=== PATIENT | female | born 1940 | race Caucasian/White ===

== ENCOUNTER 2018-08-29 19:06 | Inpatient (IN) | payer OTHER ==
[~2018-08-29] VITALS: Ht 160 cm; Wt 57.8 kg
[~2018-08-29 19:06] MED LIST: ETOMIDATE 20 MG INJ ONE; SUCCINYLCHOLINE CHLORIDE 100 MG/5 ML SYG IV ONE
[2018-08-29] MEDS ORDERED: SODIUM CHLORIDE 0.9% 1L BAG IV* STA (19:23)
[2018-08-29] MEDS ORDERED: PANT40TA4 PO (19:24)
[2018-08-29] MEDS ORDERED: CHOL100062 PO (19:24)
[2018-08-29] MEDS ORDERED: FURO20TA3 PO (19:27)
[2018-08-29] MEDS ORDERED: ASPI-817 PO (19:28)
[2018-08-29] MEDS ORDERED: OMEP1CAP25 PO (19:29)
[2018-08-29] MEDS ORDERED: CALC-74 PO (19:30)
[2018-08-29] MEDS ORDERED: VANCOMYCIN 1 GM (PMX) 250 ML IVPB ONE (19:30)
[2018-08-29] MEDS ORDERED: LEVOFLOXACIN 750MG/D5W (PMX) 150 ML IVPB ONE (19:30)
[2018-08-29] MEDS ORDERED: OMEG-135 PO (19:30)
[2018-08-29] MEDS ORDERED: TIOT18CA INHALATION (19:31)
[2018-08-29] MEDS ORDERED: LEVO175T6 PO (19:31)
[2018-08-29] MEDS ORDERED: AMLO5TAB4 PO (19:31)
--- NOTE | 2018-08-29 19:40 | ERD ---
ER Documentation Chief Complaint Chief Complaint Respiratory distress (STONEY HYDE DO) HPI This is an 78-year-old female who [facility]. The patient was doing well 2 days ago the report however the past 2 days she had a gradual decline in mobility and appetite and today she progressed to where she was virtually unresponsive with increased work of breathing. Patient was brought in with very tachypneic with unresponsiveness. Cannot obtain other history (STONEY HYDE DO) I received signout on this patient from Dr. Hyde. In summary the patient pr esented acutely hypoxic, and apneic, requiring emergent intubation. I reviewed the patient's past history and physical, she has a history of COPD, most of the history was obtained from her son who states that she has been feeling unwell for about the last 3 weeks, he has noted that she is a little bit weaker. She currently resides at an assisted living facility, she is still smoking. She had a prior admission to [facility] earlier this month. At that time she apparently left AMA. (UGO HAAS MD) ROS All systems reviewed and are negative except as per history of present illness. (STONEY HYDE DO) Medications Home Meds Reported Medications Cholecalciferol (Vitamin D3) (Vitamin D-3) 2,000 Unit Tablet, 2000 UNIT PO DAILY, TAB 08/29/18 Tiotropium [place]* (Spiriva*) 18 Mcg Cap.w.dev, 1 CAP INHALATION DAILY, #30 CAP 08/29/18 Levothyroxine Sodium* (Levothyroxine Sodium*) 175 Mcg Tablet, 175 MCG PO BEFORE BREAKFAST, #30 TAB 08/29/18 Amlodipine Besylate* (Norvasc*) 5 Mg Tablet, 5 MG PO DAILY, TAB 08/29/18 [place]-3 Fatty Acids/Fish Oil (Fish Oil 1,000 mg Capsule) 1 Each Capsule, 1 EACH PO DAILY, CAP 08/29/18 Calcium Carbonate-Vit D3-Minerals (Calcium 600 + D + Minerals) 1 Each Tablet, 1 TAB PO DAILY, TAB 08/29/18 Omeprazole/Sodium Bicarbonate (OMEPRAZOLE-BICARB 20-1,100 CAP) 1 Each Capsule, 1 CAP PO DAILY, #30 CAP 08/29/18 Aspirin* (Aspirin* EC) 81 Mg Tablet., 81 MG PO DAILY, TAB 08/29/18 Furosemide* (Furosemide*) 20 Mg Tablet, 20 MG PO DAILY, #60 TAB 1 TAB- NEEDED 08/29/18 Pantoprazole* (Pantoprazole*) 40 Mg Tablet.dr, 40 MG PO AC BREAKFAST, TAB 08/29/18 Discontinued Reported Medications Cholecalciferol* (Vitamin D3*) 1,000 Unit Tablet, 1000 UNIT PO DAILY, TAB 08/29/18 Allergies Allergies: Coded Allergies: Penicillins (Unverified Allergy, Unknown, 08/29/18) PMhx/Soc Hx Respiratory Disorders: Yes (ASTHMA) Hx Psychiatric Problems: Yes (ANXIETY) Hx Miscellaneous Medical Probl: No (PT UNABLE TO DISCLOSED ANY OTHER INFORMATION) Hx Alcohol Use: No Hx Substance Use: No Hx Tobacco Use: Yes (STONEY HYDE DO) FmHx Unable to obtain due to mental status (STONEY HYDE DO) Family History: No diabetes (UGO HAAS MD) Physical Exam Vitals Vital Signs Date Temp Pulse Resp B/P (MAP) Pulse Ox O2 O2 Flow FiO2 Time Delivery Rate 08/29/18 Bag Valve 10 19:25 Mask 08/29/18 Bag Valve 10.0 19:25 Mask 08/29/18 62 16 100 100 19:10 08/29/18 96.4 70 30 139/72 80 19:06 (94) (UGO HAAS MD) Physical Exam Const: Well-developed, well-nourished Head: Atraumatic, normocephalic Eyes: Bilateral yellow conjunctival discharge PERRLA, EOMI, normal sclera, no nystagmus ENT: Normal External Ears, Nose and Mouth, moist mucus membranes. Neck: Full range of motion. No meningismus, no lymphadenopathy. Resp: Tachypnea with impending respiratory failure Cardio: Tachycardia, no murmurs, S1 S2 present] Abd: [Soft, non tender x 4, non distended. Skin: No petechiae or rashes, no ecchymosis , no maculopapular rash Back: Const: Well-developed, well-nourished Head: Atraumatic, normocephalic Eyes: Normal Conjunctiva, PERRLA, EOMI, normal sclera, no nystagmus ENT: Normal External Ears, Nose and Mouth, moist mucus membranes. Neck: Full range of motion. No meningismus, no lymphadenopathy. Resp: Clear to auscultation bilaterally, no wheezing, rhonchi, rales Cardio: Regular rate and rhythm, no murmurs, S1 S2 present Abd: Soft, non tender x 4, non distended. Normal bowel sounds, no guarding or rebound, no pulsitile abdominal masses or bruits Skin: No petechiae or rashes, no ecchymosis , no maculopapular rash Back: No midline or flank tenderness Ext: No cyanosis, or edema, FROM x 4, normal inspection, neurovascularly intact x 4 Neur: GCS of 3 Psych: Cannot assess (STONEY HYDE DO) Physical Exam General: Patient is intubated, on mechanical ventilator, opens eyes to sound HEENT: Atraumatic, no scleral icterus Neck: Trachea midline, no step-off, no meningeal signs Cardiovascular: Regular rate and rhythm, no murmurs rubs or gallop Respiratory: Bilateral expiratory wheezing noted Abdomen: Soft nontender, no guarding Extremities, trace pitting edema bilaterally Neuro: Patient is sedated, opens eyes spontaneously (UGO HAAS MD) Result Diagram: 08/29/18194108/29/181941 Results 24 hrs Laboratory Tests Test 08/29/18 19:35 08/29/18 19:42 08/29/18 20:14 08/29/18 20:30 Hepatitis A Pending Antibody Total Hepatitis B Pending Surface Antigen Hepatitis B Pending Core Total Antibody Hepatitis C Pending Antibody White Blood 10.0 10^3/ul Count Red Blood Count 4.00 10^6/ul Hemoglobin 13.1 g/dl Hematocrit 44.7 % Mean 111.8 fl Corpuscular Volume Mean 32.8 pg Corpuscular Hemoglobin Mean 29.3 g/dl Corpuscular Hemoglobin Conc ent Red Cell 15.1 % Distribution Width Platelet Count 324 10^3/UL Mean Platelet 10.0 fl Volume Immature 13.400 % Granulocytes % Neutrophils % % Segmented 75 % Neutrophils % (Manual) Band 5 % Neutrophils % (Manual) Lymphocytes % % Lymphocytes % 3 % (Manual) Reactive 2 % Lymphocytes % (Manual) Monocytes % % Monocytes % 2 % (Manual) Eosinophils % % Basophils % % Metamyelocytes 5 % % (manual) Myelocytes % 8 % (Manual) Nucleated Red 0.7 /100WBC Blood Cells % Immature 1.340 10^3/ul Granulocytes # Neutrophils # 10^3/ul Neutrophils # 7.6 10^3/ul (Manual) Band 0.5 10^3/ul Neutrophils # Lymphocytes 0.3 10^3/ul (Manual) Lymphocytes # 10^3/ul Reactive 0.2 10^3/ul Lymphocytes # Monocytes # 10^3/ul Monocytes # 0.2 10^3/ul (Manual) Eosinophils # 10^3/ul Basophils # 10^3/ul Metamyelocytes 0.5 10^3/ul # Myelocytes # 0.8 10^3/ul Nucleated Red 10^3/ul Blood Cells # Polychromasia 2+ Poikilocytosis 1+ Anisocytosis 1+ Macrocytosis 1+ Spherocytes 1+ Ovalocytes 1+ Prothrombin 15.6 Sec Time Prothrombin 1.2 Time Ratio INR 1.22 International Normalized Rati o Activated 29.8 Sec Partial Thrombo plast Time Sodium Level 144 mmol/L Potassium Level 6.6 mmol/L Chloride Level 89 mmol/L Carbon Dioxide 45 mmol/L Level Anion Gap 10 Blood Urea 43 mg/dl Nitrogen Creatinine 1.20 mg/dl Est Glomerular mL/min Filtrat Rate mL/min Glucose Level 125 mg/dl Calcium Level 10.5 mg/dl Total Bilirubin 0.3 mg/dl Direct 0.00 mg/dl Bilirubin Indirect 0.3 mg/dl Bilirubin Aspartate Amino 1480 IU/L Transf (AST/SGO T) Alanine 823 IU/L Aminotransferas e (ALT/SGPT) Alkaline 166 IU/L Phosphatase Troponin I 0.061 ng/ml B-Type 85629 PG/ML Natriuretic Peptide Total Protein 7.5 g/dl Albumin 3.7 g/dl Globulin 3.80 g/dl Albumin/Globuli 0.97 n Ratio POC Venous 2.7 mmol/L Lactate Blood Gas Blood arterial Specimen Source Arterial Blood 08/29/2018 10: Date Drawn 10:10 PM Arterial Blood 7.425 pH (Temp corrected ) Arterial Blood 58.6 mmhg pCO2 (Temp correct) Arterial Blood 49.5 mmHG pO2 (Temp corrected ) Arterial Blood 37.6 mmol/L HCO3 Arterial Blood 11.2 mmol/L Base Excess Arterial Blood 84.8 mmHG Oxygen Saturati on Yordan Test ACCEPTAB Arterial Blood Left Radial Gas Puncture Site Arterial 0.4 % Blood Carboxyhe moglobin Arterial Blood 0.2 % Methemoglobin Blood Gas A-a 604.9 mmHg O2 Differential Oxyhemoglobin 84.3 % Percent Blood Gas 37.0 C Temperature Blood Gas 20.0 Respiration Rate Blood Gas 24 Actual Respiration Rat e Blood Gas VENT - AC Modality FiO2 100.0 % Blood Gas Tidal 500.0 mL Volume Blood Gas Low 5.0 cmH2O PEEP Setting Blood Gas 47.0 Inspiratory Pressure Blood Gas Xander HAAS MD Critical Value Read Back Blood Gas Notified Whom Blood Gas 08/29/2018 10: Notified Time 20:52 PM Test 08/29/18 21:30 Urine Color KEYUR Urine Clarity TURBID Urine pH 5.0 Urine Specific 1.015 [place] Urine Ketones TRACE mg/dL Urine Nitrite NEGATIVE mg/dL Urine Bilirubin NEGATIVE mg/dL Urine 2+ mg/dL Urobilinogen Urine Leukocyte NEGATIVE Shabana/ul Esterase Urine 9 /HPF Microscopic RBC Urine 7 /HPF Microscopic WBC Urine Squamous FEW /HPF Epithelial Cell s Urine Hyaline FEW /HPF Casts Urine Mucus FEW /HPF Urine 3+ mg/dL Hemoglobin Urine Glucose 1+ mg/dL Urine Total 2+ mg/dl Protein Current Medications Medications Dose Sig/Pacheco Start Time Status Last (Trade) Ordered Route PRN Stop Time Admin Dose Reason Admin Sodium 1,620 ml BOLUS OVER 2 08/29/18 DC 08/29/18 Chloride HOURS STAT 19:23 19:49 (NS) IV* 08/29/18 19:26 Vancomycin 250 ml @ ONCE ONCE 08/29/18 DC 08/29/18 HCl 125 mls/hr IVPB 19:30 19:50 08/29/18 21:29 150 ml @ ONCE ONCE 08/29/18 DC 08/29/18 Levofloxacin/ 100 mls/hr IVPB 19:30 19:50 Dextrose 08/29/18 20:59 Propofol 100 ml @ ONCE STAT 08/29/18 08/29/18 1.62 mls/hr IV 20:06 09/01/18 20:22 09:49 Ipratropium 0.5 mg ONCE STAT 08/29/18 DC 08/29/18 [place] INH 21:12 22:05 (Atrovent 08/29/18 0.02% 21:16 (Neb)) Albuterol 15 mg ONCE STAT 08/29/18 DC 12/29/18 (Proventil INH 21:12 22:05 0.5% (Neb)) 08/29/18 21:16 125 mg ONCE STAT 08/29/18 DC 08/29/18 Methylprednis IV 21:12 22:06 olone Sodium 08/29/18 Succinate 21:16 (Solu-Medrol) Sodium 1,000 ml @ Q2H STAT 08/29/18 Bicarbonate 500 mls/hr IV 21:13 100 08/29/18 meq/Dextrose 23:12 Insulin 10 unit ONCE STAT 08/29/18 DC Human IVP 21:13 Regular 08/29/18 (Humulin R) 21:18 Dextrose ONCE PRN 08/29/18 08/29/18 (D50w IV DECREASED 21:30 22:07 Syringe) GLUCOSE 08/30/18 21:29 250 ml @ ONCE STAT 08/29/18 08/29/18 Norepinephrin 7.5 mls/hr IV 21:14 22:07 e 08/31/18 06:33 Oseltamivir 75 mg ONCE ONCE 08/29/18 DC 08/29/18 Phosphate PO 21:30 22:07 (Tamiflu) 08/29/18 21:31 Sodium 1,000 ml @ [id number] IV 08/29/18 Chloride 80 mls/hr 21:57 Albuterol 4 puff Q2H RESP 08/29/18 (Ventolin THERAPY PRN 22:00 Hfa) INH SHORTNESS OF BREATH Ipratropium 4 puff Q2H RESP 08/29/18 [place] THERAPY PRN 22:00 (Atrovent INH Hfa) SHORTNESS OF BREATH 650 mg Q6H PRN 08/29/18 Acetaminophen NGT PAIN 22:00 (Tylenol LEVEL 1-3 OR Liquid) FEVER 40 mg DAILY@06 08/30/18 Pantoprazole IV 06:00 (Protonix Iv) (UGO HAAS MD) Procedures/MDM Endotracheal Intubation by me: Pre assessment performed. See preceding note for details. Pre-oxygenation performed with 100% oxygen RSI: Performed w/o complication or hypoxic events. Medications as ordered. Blade: MAC 4 storz ET Tube: 7cm Depth: 22cm at the lip Intubation confirmed by colorimetric CO2, equal breath sounds, quiet over the stomach. Critical Care Time: 40 minutes Treatments/Evaluations: Close monitoring and treatment of unstable vital signs, cardiorespiratory, and neurologic status, while maintaining tight balance of fluid, respiratory, and cardiac interventions. This time includes discussing the case with the patient and the patient's family. This time does not include all procedures stated elsewhere in this record. This time also includes reviewing old records, labs and radiological studies. This time includes examining and re-examining the patient. Additionally, this time also includes arranging care with admitting and consulting physicians. (STONEY HYDE DO) 78-year-old female presents for evaluation of respiratory distress, hypoxia. My overall impression the patient is in acute shock, she has elevated liver enzymes, she was hypotensive, and noted a possible pleural effusion on the right side, consider aspiration, she was treated with broad-spectrum antibiotics, I added Tamiflu, also place central line for pressor support. Discussed plan of care with family, discussed with [facility], as patient is currently unstable, will be admitted to the ICU at [facility]. Patient will be admitted to Dr. Condon Sepsis Documentation: Patient's infectious symptoms have not stabilized and the patient is at risk of rapid decompensation. The patient will be admitted for careful hydration, antibiotic therapy, and infectious source control. SEVERE SEPSIS CRITERIA: Infectious source: Pulmonary End organ damage indicated by: Lactate greater than 2 SEPSIS MANAGEMENT Time of recognition of sepsis: [Upon arrival]. Time of recognition of severe sepsis: [No severe sepsis at this time]. Time of recognition of septic shock: [No septic shock at this time]. 3 HOUR BUNDLE Blood cultures x 2 before broad-spectrum antibiotics: [Yes] 30 ml/kg NS bolus [Completed] Initial lactate 2.7 Repeat lactate pending SEPTIC SHOCK ASSESSMENT: Persistent hypotension VOLUME REASSESSMENT FOR SEPTIC SHOCK: Reevaluation Time: 10:20 PM Temp 96], BP 101/80], HR 101], RR[22], Pox [100%] Heart [Regular rate & rhythm] Lungs [No crackles] Skin [Warm & dry] Cap Refill [Less than 2 seconds] Peripheral pulses [Radially present] PERSISTENT HYPOTENSION TREATMENT: Comfort care [No] Central line [Not Required] Vasopressor started Levophed] I considered further perfusion assessment with CVP measurement, SCVO2, bedside ultrasound volume assessment, passive leg raise, trial of further fluid bolus. And proceeded with [30 ml/kg fluid bolus of NSS, broad spectrum antibiotics, and admission.] CRITICAL CARE Critical care time [35] minutes Emergent fluid management while maintaining close respiratory support. Provision of immediate and broad-spectrum antibiotic therapy. Simultaneous asse ssment for possible sources in order to direct targeted therapy. Consideration for invasive and chemical support to prevent cardiopulmonary collapse. Critical care time is independent of procedures performed. Central Line Placement by me: Patient consented, sterilely draped, full prep, gown, glove, mask, time out performed. Anesthesia: 1% lidocaine locally Location: Right IJ Device: Multiple lumen Technique: Seldinger technique. Secured with suture. Results: Venous return from all ports with easy saline flush. No complications. Guide wire retrieved and disposed of. (UGO HAAS MD) Departure Diagnosis: Primary Impression: Respiratory distress Condition: Critical STONEY HYDE DO Aug 29, 2018 19:40 UGO HAAS MD Aug 29, 2018 22:22
[2018-08-29] MEDS ORDERED: CHOL200056 PO (19:42)
[2018-08-29] MEDS ORDERED: PROPOFOL 100 ML IV STA (20:06)
[2018-08-29] MEDS ORDERED: IPRATROPIUM (NEB) 0.5 MG/2.5 ML AMP INH STA (21:12)
[2018-08-29] MEDS ORDERED: METHYLPREDNISOLONE 125 MG INJ IV STA (21:12)
[2018-08-29] MEDS ORDERED: ALBUTEROL 0.5% (NEB) 2.5 MG/0.5 ML AMP INH STA (21:12)
[2018-08-29] MEDS ORDERED: SODIUM BICARBONATE (IV ADD) 100 MEQ in DEXTROSE 5% 900 ML IV STA (21:13)
[2018-08-29] MEDS ORDERED: INSULIN REGULAR, HUMAN 100 UNIT/1 ML 3ML VIAL IVP STA (21:13)
[2018-08-29] MEDS ORDERED: NORepinephrine 8MG/250 ML (PMX 250 ML IV STA (21:14)
[2018-08-29] MEDS ORDERED: DEXTROSE 50% 50 ML SYRINGE IV PRN ×3 (21:30→23:30)
[2018-08-29] MEDS ORDERED: OSELTAMIVIR 75 MG CAP PO ONE (21:30)
[2018-08-29] MEDS ORDERED: IPRATROPIUM (HFA) 12.9 GM INHALER INH PRN (22:00)
[2018-08-29] MEDS ORDERED: ACETAMINOPHEN 650MG/20.3ML CUP NGT PRN (22:00)
[2018-08-29] MEDS ORDERED: ALBUTEROL HFA 8 GM INHALER INH PRN (22:00)
--- NOTE | 2018-08-29 22:29 | HP ---
Date/Time of Note Date/Time of Note DATE: 08/29/18 TIME: :29 Assessment/Plan VTE Prophylaxis SCD applied (from Nsg): Yes Pharmacological prophylaxis: LMWH Lines/Catheters IV Catheter Type (from Nrsg): Central Line Central line still needed: Yes (pressor support) Urinary Cath still in place: Yes Reason Cath still needed: other (indicate) (critical illness) Assessment/Plan Hospital Course This is a 78-year-old female being admitted to the ICU floor for: #1 ventilatory dependent hypercapnic hypoxic respiratory failure: Multifactorial secondary to underlying COPD, pneumonia versus other. At the current time patient is intubated we will obtain serial ABGs and adjust vent setting as per pulmonary. Consult pulmonology. She did receive IV Solu-Medrol in the ED, as needed nebulizers. #2 septic shock: Secondary likely to underlying pneumonia. Patient lives in assisted living facility. Antibiotics of vancomycin and aztreonam given marshall ent's penicillin allergy. Sputum culture via ET tube. Panculture. Trend lactic acid levels. Continue Pressor support with MAP > 65 #3 hyperkalemia: Likely secondary to underlying renal failure. She did receive albuterol and insulin in the ED. We will also give her a dose of calcium gluconate for cardioprotective measures. Will check CMP every 4 hours to monitor potassium and renal function. #4 acute versus acute on chronic kidney failure I do not have a previous baseline creatinine. Creatinine is 1.20. At the current time will provide IV fluid hydration with normal saline. Patient does appear to be volume down. Monitor renal function. Avoid nephrotoxic agents. Renally dose antibiotics. #5 lactic acidosis: Secondary to underlying hypoperfusion, septic shock. We will trend lactic acid levels, IV antibiotics, IV fluid hydration. Vent management. We will continue to monitor #6 contraction alkalosis: Secondary to volume depletion, IV fluid hydration, monitor renal function and bicarb levels. #7 transaminitis: Shock liver, versus passive congestion, versus hepatitis anu richie other. Given patient's history of COPD patient may have a component of right heart failure resulting in passive congestion, however at the current time patient appears to be volume down. Trend liver function tests, right upper quadrant ultrasound. Hepatitis panel. #8 elevated BNP: Suspect history of heart failure given previous history of needing Lasix and bilateral lower extremity edema, however at the current time patient appears to be volume down. Trop negative. Will need to locate the EKG. Will check an echocardiogram. #9 macrocytosis: We will check B12, folate #10 COPD: Pulmonology consultation. There may be a component of cor pulmonale resulting in right heart failure, will check an echocardiogram. prn nebs #11 hypothyroidism: We will check TSH, will convert p.o. dose to IV dose of levothyroxine daily. #12 hypertension: We will need to hold current blood pressure medications given patient's septic shock and requirement for pressors. #13 DVT GI prophylaxis: Lovenox, Protonix Further treatment strategy will be implemented as per the clinical course CODE STATUS: Full code Greater than 55 minutes of critical care time was spent on the care and management of this patient. Patient is a [facility] patient once patient is stabilized she can be transferred to [facility]. Son: karson [phone] Result Diagram: 08/29/18194108/29/181941 Results 24hrs Laboratory Tests Test 08/29/18 19:35 08/29/18 19:42 08/29/18 20:14 08/29/18 20:30 Hepatitis A Pending Antibody Total Hepatitis B Pending Surface Antigen Hepatitis B Pending Core Total Antibody Hepatitis C Pending Antibody White Blood 10.0 Count Red Blood Count 4.00 L Hemoglobin 13.1 Hematocrit 44.7 Mean 111.8 H Corpuscular Volume Mean 32.8 Corpuscular Hemoglobin Mean 29.3 L Corpuscular Hemoglobin Conc ent Red Cell 15.1 H Distribution Width Platelet Count 324 Mean Platelet 10.0 Volume Immature 13.400 H Granulocytes % Neutrophils % Segmented 75 Neutrophils % (Manual) Band 5 H Neutrophils % (Manual) Lymphocytes % Lymphocytes % 3 L (Manual) Reactive 2 H Lymphocytes % (Manual) Monocytes % Monocytes % 2 (Manual) Eosinophils % Basophils % Metamyelocytes 5 H % (manual) Myelocytes % 8 H (Manual) Nucleated Red 0.7 H Blood Cells % Immature 1.340 H Granulocytes # Neutrophils # Neutrophils # 7.6 H (Manual) Band 0.5 Neutrophils # Lymphocytes 0.3 L (Manual) Lymphocytes # Reactive 0.2 H Lymphocytes # Monocytes # Monocytes # 0.2 L (Manual) Eosinophils # Basophils # Metamyelocytes 0.5 H # Myelocytes # 0.8 H Nucleated Red Blood Cells # Polychromasia 2+ Poikilocytosis 1+ Anisocytosis 1+ Macrocytosis 1+ Spherocytes 1+ Ovalocytes 1+ Prothrombin 15.6 H Time Prothrombin 1.2 Time Ratio INR 1.22 International Normalized Rati o Activated 29.8 Partial Thrombo plast Time Sodium Level 144 Potassium Level 6.6 *H Chloride Level 89 L Carbon Dioxide 45 *H Level Anion Gap 10 Blood Urea 43 H Nitrogen Creatinine 1.20 H Est Glomerular Filtrat Rate mL/min Glucose Level 125 Calcium Level 10.5 H Total Bilirubin 0.3 Direct 0.00 Bilirubin Indirect 0.3 Bilirubin Aspartate Amino 1480 H Transf (AST/SGO T) Alanine 823 H Aminotransferas e (ALT/SGPT) Alkaline 166 H Phosphatase Troponin I 0.061 B-Type 36354 H Natriuretic Peptide Total Protein 7.5 Albumin 3.7 Globulin 3.80 H Albumin/Globuli 0.97 n Ratio POC Venous 2.7 *H Lactate Blood Gas Blood arterial Specimen Source Arterial Blood 08/29/2018 10:1 Date Drawn 0:10 PM Arterial Blood 7.425 pH (Temp corrected ) Arterial Blood 58.6 H pCO2 (Temp correct) Arterial Blood 49.5 *L pO2 (Temp corrected ) Arterial Blood 37.6 H HCO3 Arterial Blood 11.2 H Base Excess Arterial Blood 84.8 L Oxygen Saturati on Yordan Test ACCEPTAB Arterial Blood Left Radial Gas Puncture Site Arterial 0.4 Blood Carboxyhe moglobin Arterial Blood 0.2 Methemoglobin Blood Gas A-a 604.9 H O2 Differential Oxyhemoglobin 84.3 L Percent Blood Gas 37.0 Temperature Blood Gas 20.0 Respiration Rate Blood Gas 24 Actual Respiration Rat e Blood Gas VENT - AC Modality FiO2 100.0 Blood Gas Tidal 500.0 Volume Blood Gas Low 5.0 PEEP Setting Blood Gas 47.0 Inspiratory Pressure Blood Gas Xander HAAS MD Critical Value Read Back Blood Gas Notified Whom Blood Gas 08/29/2018 10:2 Notified Time 0:52 PM Test 08/29/18 21:30 08/29/18 22:12 Urine Color KEYUR Urine Clarity TURBID A Urine pH 5.0 Urine Specific 1.015 [place] Urine Ketones TRACE A Urine Nitrite NEGATIVE Urine Bilirubin NEGATIVE Urine 2+ H Urobilinogen Urine Leukocyte NEGATIVE Esterase Urine 9 H Microscopic RBC Urine 7 H Microscopic WBC Urine Squamous FEW Epithelial Cell s Urine Hyaline FEW A Casts Urine Mucus FEW A Urine 3+ H Hemoglobin Urine Glucose 1+ H Urine Total 2+ H Protein Bedside Glucose 97 HPI/ROS Admit Date/Time Admit Date/Time Hx of Present Illness Chief complaint: Brought in by EMS for being unresponsive and increased work of breathing This is a 78-year-old female with a past medical history of COPD hypothyroidism and hypertension who was brought in by EMS from skilled nursing for being unresponsive and increased work of breathing. The history was provided from the ED physician as well as from the son Karson who was at the bedside as the patient was unable to provide a history given her critical condition. According to the son, the patient was seen on [place] by him and she did appear weak at that time. Then he was notified today by the skilled nursing/assisted living facility that she had not eaten. Patient was alert he noticed having a gradual decline in mobility and appetite and was found to be virtually unresponsive and with increased work of breathing. When she arrived to the emergency department patient was unresponsive and was very tachypneic. She still remains a smoker. She is a [facility] patient. The son does state that the last time she was admitted to the hospital she required Lasix as her legs were both swollen. Upon my examination of the patient at the bedside the patient was intubated and was noted to be agitated while on the vent. As per the son the patient does state that the mother did not want to be on life support for prolonged period of time nor in a vegetative state, however at the current time they would like to do everything possible for her. Allergies: Penicillin, son also reports there may be other allergies as well, we will try to obtain records from [facility]. Medications: See KERMIT rodgers phone number: [phone] ROS Subjective hx not possible: pt non-verbal, pt critical status (Intubated) PMH/Family/Social Past Medical History COPD, hypothyroidism, hypertension, osteoporosis, episodes of hypoglycemia Medications Current Medications Propofol 100 ml @ 1.62 mls/hr ONCE STAT IV Last administered on 08/29/18at 20:22; Admin Dose 1.62 MLS/HR; Start 08/29/18 at 20:06; Stop 09/01/18 at 09:49 Sodium Bicarbonate 100 meq/Dextrose 1,000 ml @ 500 mls/hr Q2H STAT IV ; Start 08/29/18 at 21:13; Stop 08/29/18 at 23:12 Dextrose (D50w Syringe) ONCE PRN IV DECREASED GLUCOSE Last administered on 08/29/18at 22:07; Admin Dose 50 ML; Start 08/29/18 at 21:30; Stop 08/30/18 at 21:29 Norepinephrine 250 ml @ 7.5 mls/hr ONCE STAT IV Last administered on 08/29/18at 22:07; Admin Dose 7.5 MLS/HR; Start 08/29/18 at 21:14; Stop 08/31/18 at 06:33 Sodium Chloride 1,000 ml @ 80 mls/hr [id number] IV ; Start 08/29/18 at 21:57 Albuterol (Ventolin Hfa) 4 puff Q2H RESP THERAPY PRN INH SHORTNESS OF BREATH; Start 08/29/18 at 22:00 Ipratropium [place] (Atrovent Hfa) 4 puff Q2H RESP THERAPY PRN INH SHORTNESS OF BREATH; Start 08/29/18 at 22:00 Acetaminophen (Tylenol Liquid) 650 mg Q6H PRN NGT PAIN LEVEL 1-3 OR FEVER; Start 08/29/18 at 22:00 Pantoprazole (Protonix Iv) 40 mg DAILY@06 IV ; Start 08/30/18 at 06:00 Coded Allergies: Macrolide Antibiotics (Verified Allergy, Unknown, 09/06/18) Penicillins (Verified Allergy, Unknown, 09/06/18) aspirin (Verified Allergy, Unknown, 09/06/18) erythromycin base (Verified Allergy, Unknown, 09/06/18) hydrocodone (Verified Allergy, Unknown, 09/06/18) lisinopril (Verified Allergy, Unknown, 09/06/18) meloxicam (Verified Allergy, Unknown, 09/06/18) Past Surgical History Dental surgery, possible appendectomy Social History Alcohol Use: sober (Former heavy drinker) Smoking Status: Current every day smoker Drug Use: none Exam/Review of Systems Vital Signs Vitals Vital Signs Date Temp Pulse Resp B/P (MAP) Pulse Ox O2 O2 Flow FiO2 Time Delivery Rate 08/29/18 Bag Valve 10 19:25 Mask 08/29/18 62 16 100 100 19:10 08/29/18 96.4 139/72 19:06 (94) Exam Exam General: Currently intubated, she does appear to be agitated while on the vent while off sedation HEENT: Atraumatic, normocephalic. The pupils are equal, round and reactive. Extraocular motor are intact, ET tube in place connected to vent, mucous membranes dry Neck: Supple Lungs: Coarse breath sounds bilaterally Heart: Normal S1-S2, Regular rhythm and rate. No murmur, S3, or S4 Abdomen: Soft , nontender, nondistended , bowel sounds are present. No guarding no rebound tenderness , No masses or organomegaly. No costovertebral temporal angle mass Extremities: Normal to inspection, no edema no cyanosis Neurologic: Intubated, agitated on the vent while off sedation, further neurological examination unable to perform given patient's current clinical condition Skin: Skin tenting Additional Comments PROCEDURE: CT Brain without contrast. CLINICAL INDICATION: Altered mental status, TECHNIQUE: CT of the brain was performed from the skull base through the vertex without IV contrast. Multiplanar reformatted images were made. Images were reviewed on a PACS workstation. The CTDIvol is 38.84 mGy and the DLP is 778.94 mGycm. DICOM images are available. One or more of the following dose reduction techniques were utilized: 1.) Automated exposure control 2.) Adjustment of the mA +/- kV according to patient's size 3.) Use of iterative reconstruction technique. COMPARISON: None FINDINGS: Brain: The examination is moderately degraded by motion artifact. No extra- axial fluid collection is seen. The ventricles and sulci are normal in size and configuration. No evidence of acute territorial infarct. There is suggestion of periventricular white matter hypodensities. Soft tissues: Unremarkable. Skull and skull base: No fractures or destructive lesions. Mastoids and middle ear cavities are normal. Face/orbits: Visualized portions are unremarkable. Paranasal sinuses: Visualized portions are unremarkable. IMPRESSION: 1. Examination moderately degraded by motion artifact. No evidence of acute intracranial abnormality. 2. Suggestion of periventricular white matter hypodensities which are nonspecific but most commonly reflect chronic small vessel ischemic changes. 3. If there is persistent concern for intracranial pathology, a repeat examination is suggested given the degree of motion on the study. RPTAT: HEUY Physician carmen Date Time Electronically viewed and signed by felecia preston, Physician on 08/29/2018 21:29 ry/ CC: STONEY MATHIS DO [id number] PROCEDURE: XR Chest. CLINICAL INDICATION: Sepsis. TECHNIQUE: Single frontal chest x-ray. COMPARISON: None. FINDINGS: Endotracheal tube tip is 2.4 cm above the priscilla. Heart is enlarged. There are atherosclerotic calcifications of the aortic knob.. There is no congestive heart failure.. There is probable layering right pleural effusion with associated right basilar atelectasis versus infiltrate.. There is no pleural effusion. There is no pneumothorax. Bones are osteopenic.. IMPRESSION: Endotracheal tube tip above priscilla. Cardiomegaly. No CHF. Probable right pleural effusion with basilar atelectasis versus infiltrate. RPTAT: HMVK .Cristian Poole MD, Date Time Electronically viewed and signed by .Cristian Poole MD, on 08/29/2018 20:27 .K/ CC: STONEY MATHIS DO [id number] AMADOU HARDY Aug 29, 2018 22:29
[2018-08-29] MEDS: SOD CHLORIDE 0.9% 1,000 ML IV SCH (22:33)
[2018-08-29] MEDS ORDERED: GLUCOSE GEL 15 GRAM TUBE PO PRN ×2 (23:30)
[2018-08-29] MEDS ORDERED: GLUCOSE GEL 15 GRAM TUBE BUCCAL PRN (23:30)
[2018-08-29] MEDS ORDERED: GLUCAGON 1 MG INJ IM PRN (23:30)
[2018-08-29] MEDS ORDERED: LORAZEPAM 2 MG INJ IV ONE (23:30)
[2018-08-30] VITALS (62 sets, daily range): BP systolic 105–149; BP diastolic 62–115; PULSE 60–90; RESP 0–23; Ht 160 cm; Wt 57.8 kg
[2018-08-30] MEDS ORDERED: CALCIUM GLUCONATE 10% 1 GM in DEXTROSE 5% 100 ML IVPB ONE ×2
[2018-08-30] MEDS: INSULIN ASPART [NOVOLOG] 3 ML PEN SC SCH ×6 (01:48→21:00)
[2018-08-30] MEDS ORDERED: ACCU-CHEK XX SCH (02:00)
[2018-08-30] MEDS: FENTAnyl (DRIP) 1000 mcg/100mL 100 ML IV SCH (02:16)
[2018-08-30] MEDS: PROPOFOL 100 ML IV SCH ×3 (04:10→18:59)
[2018-08-30] MEDS ORDERED: SOD CHLORIDE 0.9% 1,000 ML IV ONE (04:30)
[2018-08-30] MEDS ORDERED: VANCOMYCIN IV PER PHARMACY XX SCH (04:30)
[2018-08-30] MEDS: AZTREONAM 2 GM in SOD CHLORIDE 0.9% 100 ML IVPB SCH ×2 (05:24→17:00)
[2018-08-30] MEDS: PANTOPRAZOLE 40 MG INJ IV SCH (05:31)
[2018-08-30] MEDS: ENOXAPARIN 40 MG/0.4 ML SYG SC SCH (05:32)
[2018-08-30] MEDS ORDERED: METHYLPREDNISOLONE 40 MG INJ IV SCH (06:00)
[2018-08-30] MEDS: LEVOTHYROXINE 100 MCG VIAL IV SCH (06:34)
--- NOTE | 2018-08-30 06:39 | NUR ---
EOSS: Pt admitted from ER, orally intubated to vent, AC mode , CHX5=352% . ABG due at 0730 am. sedated on Diprivan drip at 50 mcg, Fentanyl drip started at 20 mcg. no SOB noted, RASS=-2 , OGT clamped , NPO. Received a total of 2L of NS in ICU for decreased u/o . All concerns addressed to Dr Flip Condon hospitalist. No signs of pain noted, turned and repositioned. all skin issues documented. sol[place] to gravity bag w/ minimal u/o , bark benton turbid , addressed to Dr. Condon. due meds adm., noted rectal prolapse, passed 1 small smear.vital signs within range , afebrile, pending CT scan of the brain routine.
[2018-08-30] MEDS ORDERED: ALBUMIN HUMAN 25% 100 ML IV ONE (07:30)
--- NOTE | 2018-08-30 09:24 | PN ---
Date/Time of Note Date/Time of Note DATE: 08/30/18 TIME: 09:21 Assessment/Plan VTE Prophylaxis SCD applied (from Nsg): Yes Pharmacological prophylaxis: heparin Lines/Catheters IV Catheter Type (from Nrsg): Central Line Central line still needed: Yes Urinary Cath still in place: Yes Reason Cath still needed: urinary retention Assessment/Plan Problems: (1) Chronic respiratory failure with hypoxia and hypercapnia Status: Chronic Comment: She is on ventilator assistance in management with pulmonary assisting. Ultimately if we are able to successfully get her off of the machine she will still have the underlying issues to be addressed aggressively (2) COPD (chronic obstructive pulmonary disease) Status: Chronic Comment: Treatment as available on the ventilator Qualifiers: COPD type: unspecified COPD Qualified Codes: J44.9 - Chronic obstructive pulmonary disease, unspecified (3) Septic shock Status: Acute Comment: Improving but requiring support. At this time still critically ill (4) Essential hypertension Status: Chronic Comment: Noted. Not recurring hypertensive yet (5) Acquired hypothyroidism Status: Chronic Comment: Maintain replacement therapy (6) Prerenal azotemia Status: Acute Comment: Improving as the patient's clinical status improves. (7) Osteoporosis Status: Chronic Comment: Noted. Qualifiers: Osteoporosis type: age-related Presence of current pathological fracture: without current pathological fracture Qualified Codes: M81.0 - Age-related osteoporosis without current pathological fracture (8) Lactic acidosis Status: Acute Comment: Still present (9) Abnormal liver function tests Status: Acute Comment: Undoubtedly this represents shock liver the liver chemistries are still elevated but the hepatitis serologies are negative. Continue supportive care Result Diagram: 08/29/18 19408/30/18 0607 Results 24hrs Laboratory Tests Test 08/29/18 19:35 08/29/18 19:42 08/29/18 20:14 08/29/18 20:30 Hepatitis A NEGATIVE Antibody Total Hepatitis B NEGATIVE Surface Antigen Hepatitis B NEGATIVE Surface Antibody Hepatitis B NEGATIVE Core Total Antibody Hepatitis C NEGATIVE Antibody White Blood 10.0 Count Red Blood Count 4.00 L Hemoglobin 13.1 Hematocrit 44.7 Mean 111.8 H Corpuscular Volume Mean 32.8 Corpuscular Hemoglobin Mean 29.3 L Corpuscular Hemoglobin Conc ent Red Cell 15.1 H Distribution Width Platelet Count 324 Mean Platelet 10.0 Volume Immature 13.400 H Granulocytes % Neutrophils % Segmented 75 Neutrophils % (Manual) Band 5 H Neutrophils % (Manual) Lymphocytes % Lymphocytes % 3 L (Manual) Reactive 2 H Lymphocytes % (Manual) Monocytes % Monocytes % 2 (Manual) Eosinophils % Basophils % Metamyelocytes 5 H % (manual) Myelocytes % 8 H (Manual) Nucleated Red 0.7 H Blood Cells % Immature 1.340 H Granulocytes # Neutrophils # Neutrophils # 7.6 H (Manual) Band 0.5 Neutrophils # Lymphocytes 0.3 L (Manual) Lymphocytes # Reactive 0.2 H Lymphocytes # Monocytes # Monocytes # 0.2 L (Manual) Eosinophils # Basophils # Metamyelocytes 0.5 H # Myelocytes # 0.8 H Nucleated Red Blood Cells # Polychromasia 2+ Poikilocytosis 1+ Anisocytosis 1+ Macrocytosis 1+ Spherocytes 1+ Ovalocytes 1+ Prothrombin 15.6 H Time Prothrombin 1.2 Time Ratio INR 1.22 International Normalized Rati o Activated 29.8 Partial Thrombo plast Time Sodium Level 144 Potassium Level 6.6 *H Chloride Level 89 L Carbon Dioxide 45 *H Level Anion Gap 10 Blood Urea 43 H Nitrogen Creatinine 1.20 H Est Glomerular Filtrat Rate mL/min Glucose Level 125 Calcium Level 10.5 H Total Bilirubin 0.3 Direct 0.00 Bilirubin Indirect 0.3 Bilirubin Aspartate Amino 1480 H Transf (AST/SGO T) Alanine 823 H Aminotransferas e (ALT/SGPT) Alkaline 166 H Phosphatase Troponin I 0.061 B-Type 46492 H Natriuretic Peptide Total Protein 7.5 Albumin 3.7 Globulin 3.80 H Albumin/Globuli 0.97 n Ratio POC Venous 2.7 *H Lactate Blood Gas Blood Specimen arterial Source Arterial Blood 08/29/2018 10: Date Drawn 10:10 PM Arterial Blood 7.425 pH (Temp corrected ) Arterial Blood 58.6 H pCO2 (Temp correct) Arterial Blood 49.5 *L pO2 (Temp corrected ) Arterial Blood 37.6 H HCO3 Arterial Blood 11.2 H Base Excess Arterial Blood 84.8 L Oxygen Saturati on Yordan Test ACCEPTAB Arterial Blood Left Radial Gas Puncture Site Arterial 0.4 Blood Carboxyhe moglobin Arterial Blood 0.2 Methemoglobin Blood Gas A-a 604.9 H O2 Differential Oxyhemoglobin 84.3 L Percent Blood Gas 37.0 Temperature Blood Gas 20.0 Respiration Rate Blood Gas 24 Actual Respiration Rat e Blood Gas VENT - AC Modality FiO2 100.0 Blood Gas Tidal 500.0 Volume Blood Gas Low 5.0 PEEP Setting Blood Gas 47.0 Inspiratory Pressure Blood Gas Xander HAAS MD Critical Value Read Back Blood Gas Notified Whom Blood Gas 08/29/2018 10: Notified Time 20:52 PM Test 08/29/18 21:30 08/29/18 22:12 08/29/18 23:05 08/29/18 23:10 Urine Color KEYUR Urine Clarity TURBID A Urine pH 5.0 Urine Specific 1.015 [place] Urine Ketones TRACE A Urine Nitrite NEGATIVE Urine Bilirubin NEGATIVE Urine 2+ H Urobilinogen Urine Leukocyte NEGATIVE Esterase Urine 9 H Microscopic RBC Urine 7 H Microscopic WBC Urine Squamous FEW Epithelial Cell s Urine Hyaline FEW A Casts Urine Mucus FEW A Urine 3+ H Hemoglobin Urine Glucose 1+ H Urine Total 2+ H Protein Bedside Glucose 97 Sodium Level 142 Potassium Level 5.0 Chloride Level 96 L Carbon Dioxide 39 H Level Anion Gap 7 Blood Urea 40 H Nitrogen Creatinine 1.07 H Est Glomerular Filtrat Rate mL/min Glucose Level 198 Lactic Acid 3.8 *H Level Calcium Level 8.5 Total Bilirubin 0.3 Direct 0.00 Bilirubin Indirect 0.3 Bilirubin Aspartate Amino 3676 H Transf (AST/SGO T) Alanine 2083 H Aminotransferas e (ALT/SGPT) Alkaline 123 H Phosphatase Total Protein 5.0 #L Albumin 2.4 #L Globulin 2.60 Albumin/Globuli 0.92 n Ratio POC Venous 3.5 *H Lactate Test 08/29/18 23:30 08/29/18 23:46 08/30/18 01:14 08/30/18 01:46 Blood Gas Blood arterial Specimen Source Arterial Blood 08/29/2018 11:4 Date Drawn 0:40 PM Arterial Blood 7.426 pH (Temp corrected ) Arterial Blood 44.0 pCO2 (Temp correct) Arterial Blood 57.8 L pO2 (Temp corrected ) Arterial Blood 28.3 H HCO3 Arterial Blood 3.4 H Base Excess Arterial Blood 89.1 L Oxygen Saturati on Yordan Test ACCEPTAB Arterial Blood Right Radial Gas Puncture Site Arterial 0.2 Blood Carboxyhe moglobin Arterial Blood 0.2 Methemoglobin Blood Gas A-a 611.2 H O2 Differential Oxyhemoglobin 88.7 L Percent Blood Gas 37.0 Temperature Blood Gas 20.0 Respiration Rate Blood Gas 20 Actual Respiration Rat e Blood Gas VENT - AC Modality FiO2 100.0 Blood Gas Tidal 500.0 Volume Blood Gas Low 8.0 PEEP Setting Blood Gas 40.0 Inspiratory Pressure Blood Gas KM Notified Whom Blood Gas 08/29/2018 11:5 Notified Time 1:21 PM Bedside Glucose 175 216 204 Test 08/30/18 02:38 08/30/18 05:05 08/30/18 05:10 08/30/18 06:07 Sodium Level 142 142 Potassium Level 4.2 4.3 Chloride Level 99 95 L Carbon Dioxide 37 H 38 H Level Anion Gap 6 9 Blood Urea 34 H 35 H Nitrogen Creatinine 0.97 0.97 Est Glomerular Filtrat Rate mL/min Glucose Level 239 H 192 Calcium Level 8.1 L 8.4 Total Bilirubin 0.6 0.2 Direct 0.30 #H 0.00 # Bilirubin Indirect 0.3 0.2 Bilirubin Aspartate Amino 4051 H Transf (AST/SGO T) Alanine 2114 H 2083 H Aminotransferas e (ALT/SGPT) Alkaline 155 H 146 H Phosphatase Total Protein 5.8 L 5.8 L Albumin 2.8 L 2.8 L Globulin 3.00 3.00 Albumin/Globuli 0.93 0.93 n Ratio Lactic Acid 5.6 *H Level Bedside Glucose 170 Test 08/30/18 08:09 Bedside Glucose 147 Subjective 24 Hr Interval Summary Free Text/Dictation Patient is intubated and on sedative drips at this time Subjective hx not possible: pt non-verbal, pt critical, pt critical status Exam/Review of Systems Vital Signs Vitals Vital Signs Date Temp Pulse Resp B/P (MAP) Pulse Ox O2 O2 Flow FiO2 Time Delivery Rate 08/30/18 61 08:17 08/30/18 20 96 100 05:55 08/30/18 125/76 Mechanical 03:15 (92) Ventilator 08/30/18 97.7 00:45 08/29/18 10 19:25 Intake and Output 08/29/18 08/29/18 08/30/18 1515:00 23:00 07:00 IntakeIntake Total 2020 ml 765.650 ml BalanceBalance 2020 ml 765.650 ml Exam Constitutional: non-verbal ENMT: intubated Respiratory: crackles/rales (Right lung crackles) Cardiovascular: nl pulses Gastrointestinal: soft, nl liver, spleen, non-tender Medications Medications Current Medications Propofol 100 ml @ 1.62 mls/hr ONCE STAT IV Last administered on 08/29/18at 20:22; Admin Dose 1.62 MLS/HR; Start 08/29/18 at 20:06; Stop 09/01/18 at 09:49 Dextrose (D50w Syringe) ONCE PRN IV DECREASED GLUCOSE Last administered on 08/29/18at 22:07; Admin Dose 50 ML; Start 08/29/18 at 21:30; Stop 08/30/18 at 21:29 Norepinephrine 250 ml @ 7.5 mls/hr ONCE STAT IV Last administered on 08/29/18at 22:07; Admin Dose 7.5 MLS/HR; Start 08/29/18 at 21:14; Stop 08/31/18 at 06:33 Sodium Chloride 1,000 ml @ 80 mls/hr [id number] IV Last administered on 08/29/18at 22:33; Admin Dose 80 MLS/HR; Start 08/29/18 at 21:57 Albuterol (Ventolin Hfa) 4 puff Q2H RESP THERAPY PRN INH SHORTNESS OF BREATH; Start 08/29/18 at 22:00 Ipratropium [place] (Atrovent Hfa) 4 puff Q2H RESP THERAPY PRN INH SHORTNESS OF BREATH; Start 08/29/18 at 22:00 Acetaminophen (Tylenol Liquid) 650 mg Q6H PRN NGT PAIN LEVEL 1-3 OR FEVER; Start 08/29/18 at 22:00 Pantoprazole (Protonix Iv) 40 mg DAILY@06 IV Last administered on 08/30/18at 05:31; Admin Dose 40 MG; Start 08/30/18 at 06:00 Insulin Aspart (Novolog Insulin Pen) NOVOLOG *MILD* ALGORI... Q4 SC Last administered on 08/30/18at 08:13; Admin Dose 1 UNIT; Start 08/30/18 at 01:00 Levothyroxine Sodium (Synthroid Iv) 88 mcg DAILY@0700 IV Last administered on 08/30/18at 06:34; Admin Dose 88 MCG; Start 08/30/18 at 07:00 Miscellaneous Information 1 ea NOTE XX ; Start 08/29/18 at 23:30 Glucose (Glutose) 15 gm Q15M PRN PO DECREASED GLUCOSE; Start 08/29/18 at 23:30 Glucose (Glutose) 22.5 gm Q15M PRN PO DECREASED GLUCOSE; Start 08/29/18 at 23:30 Dextrose (D50w Syringe) 25 ml Q15M PRN IV DECREASED GLUCOSE; Start 08/29/18 at 23:30 Dextrose (D50w Syringe) 50 ml Q15M PRN IV DECREASED GLUCOSE; Start 08/29/18 at 23:30 Glucagon (Glucagen) 1 mg Q15M PRN IM DECREASED GLUCOSE; Start 08/29/18 at 23:30 Glucose (Glutose) 15 gm Q15M PRN BUCCAL DECREASED GLUCOSE; Start 08/29/18 at 23:30 Fentanyl 100 ml @ 0.1 mls/hr TITRATE IV Last administered on 08/30/18at 02:16; Admin Dose 0.2 MLS/HR; Start 08/30/18 at 02:00 Propofol 100 ml @ 1.44 mls/hr Q12H IV Last administered on 08/30/18at 04:10; Admin Dose 14.4 MLS/HR; Start 08/30/18 at 03:30 Aztreonam 2 gm/ Sodium Chloride 100 ml @ 100 mls/hr Q12H IVPB Last administered on 08/30/18at 05:24; Admin Dose 100 MLS/HR; Start 08/30/18 at 05:00 Vancomycin HCl (Vanco Iv Per Pharmacy) VANCOMYCIN PER PHARMACY PER PROTOCOL XX ; Start 08/30/18 at 04:30 Vancomycin/Sodium Chloride 250 ml @ 125 mls/hr Q24H IVPB ; Start 08/30/18 at 20:00 Enoxaparin Sodium (Lovenox) 40 mg DAILY SC Last administered on 08/30/18at 05:3 2; Admin Dose 40 MG; Start 08/30/18 at 04:45 JONNA JORDAN MD Aug 30, 2018 09:24
--- NOTE | 2018-08-30 11:53 | NUR ---
[place]; Sent over updated clinical reports to [facility] Department , faxed reports to . Attempted to get in touch with them but no reply. Will follow up with any new updates.
--- NOTE | 2018-08-30 12:12 | CONS ---
Date/Time of Note Date/Time of Note DATE: 08/30/18 TIME: 12:01 Assessment/Plan Assessment/Plan Assessment/Plan IMP: 1. Acute on chronic hypercapnic and hypoxemic resp failure--appears to be possibly due to a combination of a RLL and possibly ADHF--in a patient with COPD 2. Severe Ischemic Hepatopathy--likely due to severe pre-renal state vs. cardiorenal 3. TERRA--likely pre-renal 4. Lactic Acidosis 5. Post-hypercapnic metabolic alkalosis 6. Hypothyroidism RECS: 1. Vent support--> reduce minute ventilation by decreasing RR and Vt 2. IV abx 3. Resp GS//Cx and BC x2 4. Stat ECHO 5. Stat TSH 6. Follow lactate clearance; liver tests; and cardiac enzymes 7. Reassess mental status off sedation 8. Obtain old records Result Diagram: 08/29/18194108/30/18 0607 Results 24hrs Laboratory Tests Test 08/29/18 19:35 08/29/18 19:42 08/29/18 20:14 08/29/18 20:30 Hepatitis A NEGATIVE Antibody Total Hepatitis B NEGATIVE Surface Antigen Hepatitis B NEGATIVE Surface Antibody Hepatitis B NEGATIVE Core Total Antibody Hepatitis C NEGATIVE Antibody White Blood 10.0 Count Red Blood Count 4.00 L Hemoglobin 13.1 Hematocrit 44.7 Mean 111.8 H Corpuscular Volume Mean 32.8 Corpuscular Hemoglobin Mean 29.3 L Corpuscular Hemoglobin Conc ent Red Cell 15.1 H Distribution Width Platelet Count 324 Mean Platelet 10.0 Volume Immature 13.400 H Granulocytes % Neutrophils % Segmented 75 Neutrophils % (Manual) Band 5 H Neutrophils % (Manual) Lymphocytes % Lymphocytes % 3 L (Manual) Reactive 2 H Lymphocytes % (Manual) Monocytes % Monocytes % 2 (Manual) Eosinophils % Basophils % Metamyelocytes 5 H % (manual) Myelocytes % 8 H (Manual) Nucleated Red 0.7 H Blood Cells % Immature 1.340 H Granulocytes # Neutrophils # Neutrophils # 7.6 H (Manual) Band 0.5 Neutrophils # Lymphocytes 0.3 L (Manual) Lymphocytes # Reactive 0.2 H Lymphocytes # Monocytes # Monocytes # 0.2 L (Manual) Eosinophils # Basophils # Metamyelocytes 0.5 H # Myelocytes # 0.8 H Nucleated Red Blood Cells # Polychromasia 2+ Poikilocytosis 1+ Anisocytosis 1+ Macrocytosis 1+ Spherocytes 1+ Ovalocytes 1+ Prothrombin 15.6 H Time Prothrombin 1.2 Time Ratio INR 1.22 International Normalized Rati o Activated 29.8 Partial Thrombo plast Time Sodium Level 144 Potassium Level 6.6 *H Chloride Level 89 L Carbon Dioxide 45 *H Level Anion Gap 10 Blood Urea 43 H Nitrogen Creatinine 1.20 H Est Glomerular Filtrat Rate mL/min Glucose Level 125 Calcium Level 10.5 H Total Bilirubin 0.3 Direct 0.00 Bilirubin Indirect 0.3 Bilirubin Aspartate Amino 1480 H Transf (AST/SGO T) Alanine 823 H Aminotransferas e (ALT/SGPT) Alkaline 166 H Phosphatase Troponin I 0.061 B-Type 22192 H Natriuretic Peptide Total Protein 7.5 Albumin 3.7 Globulin 3.80 H Albumin/Globuli 0.97 n Ratio POC Venous 2.7 *H Lactate Blood Gas Blood Specimen arterial Source Arterial Blood 08/29/2018 10: Date Drawn 10:10 PM Arterial Blood 7.425 pH (Temp corrected ) Arterial Blood 58.6 H pCO2 (Temp correct) Arterial Blood 49.5 *L pO2 (Temp corrected ) Arterial Blood 37.6 H HCO3 Arterial Blood 11.2 H Base Excess Arterial Blood 84.8 L Oxygen Saturati on Yordan Test ACCEPTAB Arterial Blood Left Radial Gas Puncture Site Arterial 0.4 Blood Carboxyhe moglobin Arterial Blood 0.2 Methemoglobin Blood Gas A-a 604.9 H O2 Differential Oxyhemoglobin 84.3 L Percent Blood Gas 37.0 Temperature Blood Gas 20.0 Respiration Rate Blood Gas 24 Actual Respiration Rat e Blood Gas VENT - AC Modality FiO2 100.0 Blood Gas Tidal 500.0 Volume Blood Gas Low 5.0 PEEP Setting Blood Gas 47.0 Inspiratory Pressure Blood Gas Xander HAAS MD Critical Value Read Back Blood Gas Notified Whom Blood Gas 08/29/2018 10: Notified Time 20:52 PM Test 08/29/18 21:30 08/29/18 22:12 08/29/18 23:05 08/29/18 23:10 Urine Color KEYUR Urine Clarity TURBID A Urine pH 5.0 Urine Specific 1.015 Clyde Urine Ketones TRACE A Urine Nitrite NEGATIVE Urine Bilirubin NEGATIVE Urine 2+ H Urobilinogen Urine Leukocyte NEGATIVE Esterase Urine 9 H Microscopic RBC Urine 7 H Microscopic WBC Urine Squamous FEW Epithelial Cell s Urine Hyaline FEW A Casts Urine Mucus FEW A Urine 3+ H Hemoglobin Urine Glucose 1+ H Urine Total 2+ H Protein Bedside Glucose 97 Sodium Level 142 Potassium Level 5.0 Chloride Level 96 L Carbon Dioxide 39 H Level Anion Gap 7 Blood Urea 40 H Nitrogen Creatinine 1.07 H Est Glomerular Filtrat Rate mL/min Glucose Level 198 Lactic Acid 3.8 *H Level Calcium Level 8.5 Total Bilirubin 0.3 Direct 0.00 Bilirubin Indirect 0.3 Bilirubin Aspartate Amino 3676 H Transf (AST/SGO T) Alanine 2083 H Aminotransferas e (ALT/SGPT) Alkaline 123 H Phosphatase Total Protein 5.0 #L Albumin 2.4 #L Globulin 2.60 Albumin/Globuli 0.92 n Ratio POC Venous 3.5 *H Lactate Test 08/29/18 23:30 08/29/18 23:46 08/30/18 01:14 08/30/18 01:46 Blood Gas Blood arterial Specimen Source Arterial Blood 08/29/2018 11:4 Date Drawn 0:40 PM Arterial Blood 7.426 pH (Temp corrected ) Arterial Blood 44.0 pCO2 (Temp correct) Arterial Blood 57.8 L pO2 (Temp corrected ) Arterial Blood 28.3 H HCO3 Arterial Blood 3.4 H Base Excess Arterial Blood 89.1 L Oxygen Saturati on Yordan Test ACCEPTAB Arterial Blood Right Radial Gas Puncture Site Arterial 0.2 Blood Carboxyhe moglobin Arterial Blood 0.2 Methemoglobin Blood Gas A-a 611.2 H O2 Differential Oxyhemoglobin 88.7 L Percent Blood Gas 37.0 Temperature Blood Gas 20.0 Respiration Rate Blood Gas 20 Actual Respiration Rat e Blood Gas VENT - AC Modality FiO2 100.0 Blood Gas Tidal 500.0 Volume Blood Gas Low 8.0 PEEP Setting Blood Gas 40.0 Inspiratory Pressure Blood Gas Notified Whom Blood Gas 08/29/2018 11:5 Notified Time 1:21 PM Bedside Glucose 175 216 204 Test 08/30/18 02:38 08/30/18 05:05 08/30/18 05:10 08/30/18 06:01 Sodium Level 142 Potassium Level 4.2 Chloride Level 99 Carbon Dioxide 37 H Level Anion Gap 6 Blood Urea 34 H Nitrogen Creatinine 0.97 Est Glomerular Filtrat Rate mL/min Glucose Level 239 H Calcium Level 8.1 L Total Bilirubin 0.6 Direct 0.30 #H Bilirubin Indirect 0.3 Bilirubin Aspartate Amino 4051 H Transf (AST/SGO T) Alanine 2114 H Aminotransferas e (ALT/SGPT) Alkaline 155 H Phosphatase Total Protein 5.8 L Albumin 2.8 L Globulin 3.00 Albumin/Globuli 0.93 n Ratio Lactic Acid 5.6 *H Level Bedside Glucose 170 Vitamin B12 951 H Level Test 08/30/18 06:07 08/30/18 07:30 08/30/18 08:09 Sodium Level 142 Potassium Level 4.3 Chloride Level 95 L Carbon Dioxide 38 H Level Anion Gap 9 Blood Urea 35 H Nitrogen Creatinine 0.97 Est Glomerular Filtrat Rate mL/min Glucose Level 192 Calcium Level 8.4 Total Bilirubin 0.2 Direct 0.00 # Bilirubin Indirect 0.2 Bilirubin Aspartate Amino Transf (AST/SGO T) Alanine 2083 H Aminotransferas e (ALT/SGPT) Alkaline 146 H Phosphatase Total Protein 5.8 L Albumin 2.8 L Globulin 3.00 Albumin/Globuli 0.93 n Ratio Blood Gas Blood Specimen arterial Source Arterial Blood 08/30/2018 10: Date Drawn 20:54 AM Arterial Blood 7.550 H pH (Temp corrected ) Arterial Blood 33.4 L pCO2 (Temp correct) Arterial Blood 71.8 L pO2 (Temp corrected ) Arterial Blood 28.6 H HCO3 Arterial Blood 6.3 H Base Excess Arterial Blood 94.8 L Oxygen Saturati on Yordan Test ACCEPTAB Arterial Blood Right Radial Gas Puncture Site Arterial 0.2 Blood Carboxyhe moglobin Arterial Blood 0.1 Methemoglobin Blood Gas A-a 607.8 H O2 Differential Oxyhemoglobin 94.5 Percent Blood Gas 37.0 Temperature Blood Gas 20.0 Respiration Rate Blood Gas 22 Actual Respiration Rat e Blood Gas VENT - AC Modality FiO2 100.0 Blood Gas Tidal 500.0 Volume Blood Gas Low 8.0 PEEP Setting Blood Gas dt Notified Whom Blood Gas 08/30/2018 10: Notified Time 38:25 AM Bedside Glucose 147 Consultation Date/Type/Reason Admit Date/Time Date of Consultation: Aug 30, 2018 Type of Consult Pulm/CCM Reason for Consultation Resp Failure Hx of Present Illness In brief, this is an 78-year-old female resident of a SNF with history of COPD, chronic CO2 retention, hypothyroidism, who was admitted to the ICU after presenting with AMS and respiratory distress requiring intubation and transient vasopressor requirement. Unfortunately, there is no one to provide additional history. Subjective hx not possible: pt non-verbal Past Medical History Medical History: hypothyroid, other (COPD ) Medications Current Medications Propofol 100 ml @ 1.62 mls/hr ONCE STAT IV Last administered on 08/29/18at 20:22; Admin Dose 1.62 MLS/HR; Start 08/29/18 at 20:06; Stop 09/01/18 at 09:49 Dextrose (D50w Syringe) ONCE PRN IV DECREASED GLUCOSE Last administered on 08/29/18at 22:07; Admin Dose 50 ML; Start 08/29/18 at 21:30; Stop 08/30/18 at 21:29 Norepinephrine 250 ml @ 7.5 mls/hr ONCE STAT IV Last administered on 08/29/18at 22:07; Admin Dose 7.5 MLS/HR; Start 08/29/18 at 21:14; Stop 08/31/18 at 06:33 Sodium Chloride 1,000 ml @ 80 mls/hr [id number] IV Last administered on 08/29/18at 22:33; Admin Dose 80 MLS/HR; Start 08/29/18 at 21:57 Albuterol (Ventolin Hfa) 4 puff Q2H RESP THERAPY PRN INH SHORTNESS OF BREATH; Start 08/29/18 at 22:00 Ipratropium Morganza (Atrovent Hfa) 4 puff Q2H RESP THERAPY PRN INH SHORTNESS OF BREATH; Start 08/29/18 at 22:00 Acetaminophen (Tylenol Liquid) 650 mg Q6H PRN NGT PAIN LEVEL 1-3 OR FEVER; Start 08/29/18 at 22:00 Pantoprazole (Protonix Iv) 40 mg DAILY@06 IV Last administered on 08/30/18at 05:31; Admin Dose 40 MG; Start 08/30/18 at 06:00 Insulin Aspart (Novolog Insulin Pen) NOVOLOG *MILD* ALGORI... Q4 SC Last administered on 08/30/18at 08:13; Admin Dose 1 UNIT; Start 08/30/18 at 01:00 Levothyroxine Sodium (Synthroid Iv) 88 mcg DAILY@0700 IV Last administered on 08/30/18at 06:34; Admin Dose 88 MCG; Start 08/30/18 at 07:00 Miscellaneous Information 1 ea NOTE XX ; Start 08/29/18 at 23:30 Glucose (Glutose) 15 gm Q15M PRN PO DECREASED GLUCOSE; Start 08/29/18 at 23:30 Glucose (Glutose) 22.5 gm Q15M PRN PO DECREASED GLUCOSE; Start 08/29/18 at 23:30 Dextrose (D50w Syringe) 25 ml Q15M PRN IV DECREASED GLUCOSE; Start 08/29/18 at 23:30 Dextrose (D50w Syringe) 50 ml Q15M PRN IV DECREASED GLUCOSE; Start 08/29/18 at 23:30 Glucagon (Glucagen) 1 mg Q15M PRN IM DECREASED GLUCOSE; Start 08/29/18 at 23:30 Glucose (Glutose) 15 gm Q15M PRN BUCCAL DECREASED GLUCOSE; Start 08/29/18 at 23:30 Fentanyl 100 ml @ 0.1 mls/hr TITRATE IV Last administered on 08/30/18at 02:16; Admin Dose 0.2 MLS/HR; Start 08/30/18 at 02:00 Propofol 100 ml @ 1.44 mls/hr Q12H IV Last administered on 08/30/18at 04:10; Admin Dose 14.4 MLS/HR; Start 08/30/18 at 03:30 Aztreonam 2 gm/ Sodium Chloride 100 ml @ 100 mls/hr Q12H IVPB Last administered on 08/30/18at 05:24; Admin Dose 100 MLS/HR; Start 08/30/18 at 0 5:00 Vancomycin HCl (Vanco Iv Per Pharmacy) VANCOMYCIN PER PHARMACY PER PROTOCOL XX ; Start 08/30/18 at 04:30 Vancomycin/Sodium Chloride 250 ml @ 125 mls/hr Q24H IVPB ; Start 08/30/18 at 20:00 Enoxaparin Sodium (Lovenox) 40 mg DAILY SC Last administered on 08/30/18at 05:32; Admin Dose 40 MG; Start 08/30/18 at 04:45 Allergies: Coded Allergies: Penicillins (Unverified Allergy, Unknown, 08/29/18) Past Surgical History Unknown Family History Significant Family History: no pertinent family hx Social History Alcohol Use: sober (Former heavy drinker) Smoking Status: Current every day smoker Drug Use: none Exam/Review of Systems Vital Signs Vitals Vital Signs Date Temp Pulse Resp B/P (MAP) Pulse Ox O2 O2 Flow FiO2 Time Delivery Rate 08/30/18 62 20 121/80 98 11:45 (94) 08/30/18 Mechanical 10:00 Ventilator 08/30/18 98.0 08:00 08/30/18 100 05:55 08/29/18 10 19:25 Intake and Output 08/29/18 08/29/18 08/30/18 1414:59 22:59 06:59 IntakeIntake Total 2020 ml 765.650 ml BalanceBalance 2020 ml 765.650 ml Exam Constitutional: non-verbal Head: normocephalic, atraumatic Eyes: nl conjunctiva, nl lids, nl sclera ENMT: nl external ears & nose, nl lips & teeth, nl nasal mucosa & septum, i ntubated Neck: supple, non-tender, jvd Respiratory: crackles/rales, diminished breath sounds Cardiovascular: regular rate and rhythm, nl pulses Gastrointestinal: soft, nl liver, spleen, non-tender Musculoskeletal: nl extremities to inspection Extremities: normal pulses Neurological: DTR's symmetric Medications Medications Current Medications Propofol 100 ml @ 1.62 mls/hr ONCE STAT IV Last administered on 08/29/18at 20:22; Admin Dose 1.62 MLS/HR; Start 08/29/18 at 20:06; Stop 09/01/18 at 09:49 Dextrose (D50w Syringe) ONCE PRN IV DECREASED GLUCOSE Last administered on 08/29/18at 22:07; Admin Dose 50 ML; Start 08/29/18 at 21:30; Stop 08/30/18 at 21:29 Norepinephrine 250 ml @ 7.5 mls/hr ONCE STAT IV Last administered on 08/29/18at 22:07; Admin Dose 7.5 MLS/HR; Start 08/29/18 at 21:14; Stop 08/31/18 at 06:33 Sodium Chloride 1,000 ml @ 80 mls/hr [id number] IV Last administered on 08/29/18at 22:33; Admin Dose 80 MLS/HR; Start 08/29/18 at 21:57 Albuterol (Ventolin Hfa) 4 puff Q2H RESP THERAPY PRN INH SHORTNESS OF BREATH; Start 08/29/18 at 22:00 Ipratropium Morganza (Atrovent Hfa) 4 puff Q2H RESP THERAPY PRN INH SHORTNESS OF BREATH; Start 08/29/18 at 22:00 Acetaminophen (Tylenol Liquid) 650 mg Q6H PRN NGT PAIN LEVEL 1-3 OR FEVER; Start 08/29/18 at 22:00 Pantoprazole (Protonix Iv) 40 mg DAILY@06 IV Last administered on 08/30/18at 05:31; Admin Dose 40 MG; Start 08/30/18 at 06:00 Insulin Aspart (Novolog Insulin Pen) NOVOLOG *MILD* ALGORI... Q4 SC Last administered on 08/30/18at 08:13; Admin Dose 1 UNIT; Start 08/30/18 at 01:00 Levothyroxine Sodium (Synthroid Iv) 88 mcg DAILY@0700 IV Last administered on 08/30/18at 06:34; Admin Dose 88 MCG; Start 08/30/18 at 07:00 Miscellaneous Information 1 ea NOTE XX ; Start 08/29/18 at 23:30 Glucose (Glutose) 15 gm Q15M PRN PO DECREASED GLUCOSE; Start 08/29/18 at 23:30 Glucose (Glutose) 22.5 gm Q15M PRN PO DECREASED GLUCOSE; Start 08/29/18 at 23:30 Dextrose (D50w Syringe) 25 ml Q15M PRN IV DECREASED GLUCOSE; Start 08/29/18 at 23:30 Dextrose (D50w Syringe) 50 ml Q15M PRN IV DECREASED GLUCOSE; Start 08/29/18 at 23:30 Glucagon (Glucagen) 1 mg Q15M PRN IM DECREASED GLUCOSE; Start 08/29/18 at 23:30 Glucose (Glutose) 15 gm Q15M PRN BUCCAL DECREASED GLUCOSE; Start 08/29/18 at 23:30 Fentanyl 100 ml @ 0.1 mls/hr TITRATE IV Last administered on 08/30/18at 02:16; Admin Dose 0.2 MLS/HR; Start 08/30/18 at 02:00 Propofol 100 ml @ 1.44 mls/hr Q12H IV Last administered on 08/30/18at 04:10; Admin Dose 14.4 MLS/HR; Start 08/30/18 at 03:30 Aztreonam 2 gm/ Sodium Chloride 100 ml @ 100 mls/hr Q12H IVPB Last administered on 08/30/18at 05:24; Admin Dose 100 MLS/HR; Start 08/30/18 at 05:00 Vancomycin HCl (Vanco Iv Per Pharmacy) VANCOMYCIN PER PHARMACY PER PROTOCOL XX ; Start 08/30/18 at 04:30 Vancomycin/Sodium Chloride 250 ml @ 125 mls/hr Q24H IVPB ; Start 08/30/18 at 20:00 Enoxaparin Sodium (Lovenox) 40 mg DAILY SC Last administered on 08/30/18at 05:32; Admin Dose 40 MG; Start 08/30/18 at 04:45 DIAMANTE HARP MD Aug 30, 2018 12:12
[2018-08-30] MEDS ORDERED: GUAIFENESIN/DM 5ML CUP PO PRN (13:00)
--- NOTE | 2018-08-30 13:41 | CONS ---
DATE OF ADMISSION: 08/29/2018 DATE OF CONSULTATION: 08/30/2018 REASON FOR CONSULTATION: Hypertension. REQUESTING PHYSICIAN: Dr. Hardy from the hospitalist service. HISTORY OF PRESENT ILLNESS: Ms. Hudson is an 78-year-old female with a history of COPD, hypothyroidism, hypertension who initially presented after being found unresponsive with difficulty breathing. Prior to that, the patient had last been seen by the patient's son on and appeared somewhat weak. Upon arrival here at [facility], temperature 96.4, blood pressure 139/72, pulse 70, respiratory rate 30, satting 80%. The patient's labs, a white count of 10, hemoglobin 13.1, platelet count 324. Sodium 144, potassium 6.6, creatinine 1.2, BUN 43. Carbon dioxide 45, calcium 10.5. AST 1,480, ALT 823. Troponin negative. BNP of 20,600. The patient underwent a chest x-ray revealing a right IJ catheter tip overlying the cavoatrial junction, increased medial left lung base, retrocardiac opacity, stable right lung base opacities. Head CT revealed suggestion of periventricular white matter hypodensity which are nonspecific, persistent concern for intracranial pathology. Suggest MRI. Liver ultrasound that revealed unremarkable exam. The patient subsequently required intubation, admitted to the ICU, initiated on pressure support and then this morning he has been able to be weaned off of pressors at this time and now has decreasing LFTs giving ongoing elevation of LFTs. No troponins have been sent. PAST MEDICAL HISTORY: As above in HPI. MEDICATIONS CURRENTLY IN HOSPITAL: 1. Vancomycin. 2. Synthroid. 3. Protonix. 4. Aztreonam. 5. Lovenox subcutaneously daily. 6. Propofol. 7. Fentanyl. 8. Albuterol. 9. Atrovent. 10. IV fluid hydration, 11. Levophed. ALLERGIES: PENICILLIN. SOCIAL HISTORY: No current tobacco, ETOH or illicit drug use. FAMILY HISTORY: No history of sudden cardiac or early CAD. REVIEW OF SYSTEMS: As above in HPI. CONSTITUTIONAL: No fevers, chills. PULMONARY: Respiratory failure, subsequent intubation. GASTROINTESTINAL: No vomiting. GENITOURINARY: No hematuria. MUSCULOSKELETAL: Degenerative joint disease. PSYCHIATRIC: The patient denies depression. NEUROLOGIC: No documented history of CVA. ENDOCRINE: Hypothyroidism. PHYSICAL EXAMINATION: VITAL SIGNS: Temperature of 97, blood pressure 120/80, pulse 60, respiration 20, satting 98%. GENERAL: The patient is alert, awake, no acute distress. NECK: JVP approximately 8 to 9 cm of water. CHEST: Fair air movement throughout. HEART: Regular rate and rhythm. Normal S1, S2, I/ systolic murmur, nondisplaced PMI. ABDOMEN: Positive bowel sounds, soft. EXTREMITIES: No significant pitting edema, 1+ pulses bilateral posterior tibial. LABORATORIES: Most recently from today, sodium 142, potassium 4.3, creatinine 0.9, BUN 35, ALT 2083. AST pending. IMAGING STUDIES: A chest x-ray from the revealing cardiomegaly with calcified atherosclerosis in the aorta, retrocardiac opacity, stable right lower lobe infiltrates. ECG: No electrocardiograms for my review at this time. IMPRESSION 1. Hypotension/shock, improved off of pressors at this time. 2. Respiratory failure status post intubation. 3. Chronic obstructive pulmonary disease. 4. Lactic acidosis. 5. Hypothyroidism. 6. Increased liver function tests. RECOMMENDATIONS: 1. At this time, would maintain the patient in ICU on close monitoring. 2. Would continue to wean the patient's vent as tolerated and continue to follow the patient's blood pressure closely, now off of pressors. 3. Check a 2D echo for this patient's ejection fraction, wall motion and major abnormalities. Will check a baseline EKG now and repeat EKG in the morning to assess for any significant abnormalities and changes. 4. Complete a rule out for myocardial infarction, to make sure the patient has not provoked any acute coronary syndromes in the setting of hypotension, shock state. 5. Continue to trend the patient's LFTs and followup hepatitis serologies. 6. Will continue the patient's Synthroid at this time. 7. Will continue the patient's antibiotics and follow up all culture data. Thank you for allowing me to take part in the care of this patient. I will continue to follow along very closely with you with further recommendations to be made as the patient progresses through inpatient hospital clinical course. Dictated By: DANIELA REHMAN/ALECIA Conf#: [id number] DID#: [id number] CC: REBA CHAIDEZ MD; AMADOU HARDY MD;*EndCC* MTDD
[2018-08-30] MEDS ORDERED: SOD CHLORIDE 0.9% 100 ML ONE ×2 (15:58→20:42)
[2018-08-30] MEDS ORDERED: IOHEXOL 300MG/ML 150 ML BTL ONE ×2 (15:58→20:42)
--- NOTE | 2018-08-30 15:59 | RADRPT ---
Echocardiogram Report Patient Name: WAQAR MALONEY Gender: Female Date: 1940 Study Date: 30-Aug-2018 Credentialer: Rosina Canales Location: 109-A Ref. Physician: AMADOU HARDY Quality: Technically Difficult Study Procedures: Transthoracic echocardiogram with complete 2D, M-Mode, and doppler examination. Indications: Elevated bnp, resp failure. 2D/M Mode Doppler Measurement Value Normal Ranges Measurement Value Normal Ranges LVIDd 2D 2.5 3.5 - 5.6 cm CULLEN Vmax 1.6 cm2 LVIDs 2D 1.8 2.1 - 4.1 cm AV Peak Umair 1.7 m/sec FS 2D 30.0 % AV Peak PG 11.0 mmHg LVPWd 2D 1.2 0.6 - 1.1 cm LVOT Peak Umair 0.8 m/sec IVSd 2D 0.9 0.6 - 1.1 cm LVOT Peak PG 2.0 mmHg IVS/LVPW 2D 0.8 MV E Peak Umair 0.5 m/sec AoR Diam 2D 2.5 2.0 - 3.7 cm MV A Peak Umair 1.2 m/sec LA/Ao 2D 1 0 - 1 MV E/A 0.4 EDV 2D 15.6 cm3 MV Decel Time 176 msec ESV 2D 5.4 cm3 MV E/A 0.4 LA Dimen 2D 2.9 2.3 - 4.0 cm TV E Peak Umair 0.5 m/sec LVOT Area 3.5 cm2 TR Peak Umair 2.8 m/sec TR Peak PG 32.0 mmHg RVSP 32.0 mmHg RA Pressure 35.0 Findings Left Ventricle: Normal left ventricular systolic function. Normal left ventricular cavity size. Mild concentric left ventricular hypertrophy. Ejection fraction is visually estimated at 55 %. Tissue Doppler/Mitral Doppler indices are consistent with impaired relaxation (Stage I diastolic dysfunction). Right Ventricle: Normal right ventricular size. Normal right ventricular systolic function. Left Atrium: The left atrium is normal in size. Right Atrium: The right atrium is normal in size. Mitral Valve: Mild mitral annular calcification. Trace mitral regurgitation. Aortic Valve: Aortic sclerosis without significant stenosis. Aortic cusps appear mildly calcified. Tricuspid Valve: Normal appearance of the tricuspid valve. There is moderate to severe tricuspid regurgitation. Pulmonic Valve: Normal pulmonic valve appearance. There is mild pulmonic regurgitation. Pericardium: Normal pericardium with no significant pericardial effusion. Aorta: Normal aortic root. IVC: Normal size and normal respiratory collapse consistent with normal right atrial pressure. Conclusions Normal left ventricular systolic function. Normal left ventricular cavity size. Mild concentric left ventricular hypertrophy. Ejection fraction is visually estimated at 55 %. Tissue Doppler/Mitral Doppler indices are consistent with impaired relaxation (Stage I diastolic dysfunction). Mild mitral annular calcification. Trace mitral regurgitation. Normal appearance of the tricuspid valve. There is moderate to severe tricuspid regurgitation. Normal pulmonic valve appearance. There is mild pulmonic regurgitation. Electronically Signed By: Weston Nguyen 30-Aug-2018 15:59:31 -0800 Patient Name: WAQAR MALONEY Study Date: 30-Aug-2018 [id number]
--- NOTE | 2018-08-30 18:15 | NUR ---
RX NOTE RE: VANCOMYCIN PT TO START ON VANCO PER RX HEIGHT: 63" WEIGHT: 57.8KG BUN/SCR: 35/0.97 ALLERGIES: PCN OTHER ABX: AZTREONAM LOAD VANCOMYCIN 1GM X1 ON 08/29, C/W VANCOMYCIN 750MG IV Q24HR. PHARMACY TO FOLLOW
[2018-08-30] MEDS: SOD CHLORIDE 0.9% 1,000 ML IV SCH ×2 (18:44→21:46)
[2018-08-30] MEDS ORDERED: LORAZEPAM 4 MG/ML VIAL IV SCH (20:48)
[2018-08-30] MEDS: VANCOMYCIN 750 MG (PMX) 250 ML IVPB SCH (21:40)
[2018-08-31] VITALS (70 sets, daily range): BP systolic 73–134; BP diastolic 46–91; PULSE 69–104; RESP 4–22
[2018-08-31] MEDS: INSULIN ASPART [NOVOLOG] 3 ML PEN SC SCH ×6 (01:00→20:43)
[2018-08-31] MEDS: PANTOPRAZOLE 40 MG INJ IV SCH (05:08)
[2018-08-31] MEDS: AZTREONAM 2 GM in SOD CHLORIDE 0.9% 100 ML IVPB SCH ×2 (05:08→16:29)
--- NOTE | 2018-08-31 05:59 | NUR ---
Call to [facility] : [facility] Called regarding pt's Allergies as requested by leonila Karson. Obtained and informed Dr. Flip Condon, Pharmacy called regarding allergies provided, updated Pt allergy profile, unable to provide other info as to reaction or possible med side effect.
[2018-08-31] MEDS: LEVOTHYROXINE 100 MCG VIAL IV SCH (06:46)
[2018-08-31] MEDS: PROPOFOL 100 ML IV SCH ×2 (06:52→16:23)
[2018-08-31] MEDS: ENOXAPARIN 40 MG/0.4 ML SYG SC SCH (08:35)
--- NOTE | 2018-08-31 10:03 | CONS ---
Date/Time of Note Date/Time of Note DATE: 08/31/18 TIME: 10:01 Consult Date/Type/Reason Admit Date/Time Aug 29, 2018 at 22:04 Initial Consult Date 08/30/18 Type of Consultation: ICU Subjective Patient continues mechanical ventilation. More alert this morning opens eyes but not following commands. Chest x-ray shows right lower lobe infiltrate. Objective Vital Signs Date Temp Pulse Resp B/P (MAP) Pulse Ox O2 O2 Flow FiO2 Time Delivery Rate 08/31/18 80 15 134/89 100 Mechanical 05:00 (104) Ventilator 08/31/18 75 04:55 08/31/18 97.8 04:00 08/29/18 10 19:25 Intake and Output 08/30/18 08/30/18 08/31/18 1515:00 23:00 07:00 IntakeIntake Total 594.51 ml 525.44 ml 697.24 ml OutputOutput Total 340 ml 330 ml 285 ml BalanceBalance 254.51 ml 195.44 ml 412.24 ml Exam GENERAL: Chronically ill-appearing lady orally intubated on mechanical v entilation VITAL SIGNS: per chart NECK: Supple. No JVD or lymphadenopathy. CARDIAC EXAM: S1, S2. No added sounds or murmurs. CHEST: Diminished air entry bilaterally ABDOMEN: Soft, nontender. No guarding or rebound. EXTREMITIES: No cyanosis, clubbing or edema. NEUROLOGIC: Generalized weakness. No focal deficits. Results/Medications Result Diagram: 08/31/18 0444 08/31/18 0444 Results 24 hrs Laboratory Tests Test 08/30/18 12:22 08/30/18 14:17 08/30/18 17:10 08/30/18 17:51 Troponin I 0.044 0.050 Bedside Glucose 108 111 Test 08/30/18 21:45 08/31/18 00:43 08/31/18 01:09 08/31/18 04:44 Bedside Glucose 91 92 Troponin I 0.047 0.048 White Blood 13.2 #H Count Red Blood Count 3.28 L Hemoglobin 10.6 L Hematocrit 33.3 #L Mean 101.5 H Corpuscular Volume Mean 32.3 Corpuscular Hemoglobin Mean 31.8 L Corpuscular Hemoglobin Conc ent Red Cell 15.7 H Distribution Width Platelet Count 254 # Mean Platelet 10.1 Volume Immature 3.000 H Granulocytes % Neutrophils % 86.5 H Lymphocytes % 7.2 L Monocytes % 3.0 Eosinophils % 0.0 Basophils % 0.3 Nucleated Red 0.2 H Blood Cells % Immature 0.390 H Granulocytes # Neutrophils # 11.4 H Lymphocytes # 1.0 Monocytes # 0.4 Eosinophils # 0.0 Basophils # 0.0 Nucleated Red 0.0 Blood Cells # Sodium Level 147 H Potassium Level 4.4 Chloride Level 101 Carbon Dioxide 37 H Level Anion Gap 9 Blood Urea 31 H Nitrogen Creatinine 0.88 Est Glomerular Filtrat Rate mL/min Glucose Level 85 # Lactic Acid 1.1 Level Calcium Level 7.9 L Total Bilirubin 0.1 L Direct 0.00 Bilirubin Indirect 0.1 Bilirubin Aspartate Amino 1677 H Transf (AST/SGO T) Alanine 1475 H Aminotransferas e (ALT/SGPT) Alkaline 115 Phosphatase Total Protein 5.5 L Albumin 2.9 L Globulin 2.60 Albumin/Globuli 1.11 n Ratio Test 08/31/18 05:00 08/31/18 05:04 08/31/18 08:32 Blood Gas Blood arterial Specimen Source Arterial Blood 08/31/2018 4:52 Date Drawn :26 AM Arterial Blood 7.445 pH (Temp corrected ) Arterial Blood 50.7 H pCO2 (Temp correct) Arterial Blood 78.5 L pO2 (Temp corrected ) Arterial Blood 34.1 H HCO3 Arterial Blood 8.6 H Base Excess Arterial Blood 95.0 Oxygen Saturati on Yordan Test ACCEPTAB Arterial Blood Left Radial Gas Puncture Site Arterial 1.1 Blood Carboxyhe moglobin Arterial Blood 0.2 Methemoglobin Blood Gas A-a 402.4 H O2 Differential Oxyhemoglobin 93.8 Percent Blood Gas 37.0 Temperature Blood Gas 14.0 Respiration Rate Blood Gas 14 Actual Respiration Rat e Blood Gas VENT - AC Modality FiO2 75.0 Blood Gas Tidal 450.0 Volume Blood Gas Low 10.0 PEEP Setting Blood Gas Notified Whom Blood Gas 08/31/2018 5:05 Notified Time :13 AM Bedside Glucose 71 73 Medications Current Medications Propofol 100 ml @ 1.62 mls/hr ONCE STAT IV Last administered on 08/29/18at 20:22; Admin Dose 1.62 MLS/HR; Start 08/29/18 at 20:06; Stop 09/01/18 at 09:49 Sodium Chloride 1,000 ml @ 80 mls/hr [id number] IV Last administered on 08/30/18at 21:46; Admin Dose 80 MLS/HR; Start 08/29/18 at 21:57 Albuterol (Ventolin Hfa) 4 puff Q2H RESP THERAPY PRN INH SHORTNESS OF BREATH; Start 08/29/18 at 22:00 Ipratropium [place] (Atrovent Hfa) 4 puff Q2H RESP THERAPY PRN INH SHORTNESS OF BREATH; Start 08/29/18 at 22:00 Acetaminophen (Tylenol Liquid) 650 mg Q6H PRN NGT PAIN LEVEL 1-3 OR FEVER; Start 08/29/18 at 22:00 Pantoprazole (Protonix Iv) 40 mg DAILY@06 IV Last administered on 08/31/18at 05:08; Admin Dose 40 MG; Start 08/30/18 at 06:00 Insulin Aspart (Novolog Insulin Pen) NOVOLOG *MILD* ALGORI... Q4 SC Last administered on 08/30/18at 08:13; Admin Dose 1 UNIT; Start 08/30/18 at 01:00 Levothyroxine Sodium (Synthroid Iv) 88 mcg DAILY@0700 IV Last administered on 08/31/18at 06:46; Admin Dose 88 MCG; Start 08/30/18 at 07:00 Miscellaneous Information 1 ea NOTE XX ; Start 08/29/18 at 23:30 Glucose (Glutose) 15 gm Q15M PRN PO DECREASED GLUCOSE; Start 08/29/18 at 23:30 Glucose (Glutose) 22.5 gm Q15M PRN PO DECREASED GLUCOSE; Start 08/29/18 at 23:30 Dextrose (D50w Syringe) 25 ml Q15M PRN IV DECREASED GLUCOSE; Start 08/29/18 at 23:30 Dextrose (D50w Syringe) 50 ml Q15M PRN IV DECREASED GLUCOSE; Start 08/29/18 at 23:30 Glucagon (Glucagen) 1 mg Q15M PRN IM DECREASED GLUCOSE; Start 08/29/18 at 23:30 Glucose (Glutose) 15 gm Q15M PRN BUCCAL DECREASED GLUCOSE; Start 08/29/18 at 23:30 Fentanyl 100 ml @ 0.1 mls/hr TITRATE IV Last administered on 08/30/18at 02:16; Admin Dose 0.2 MLS/HR; Start 08/30/18 at 02:00 Propofol 100 ml @ 1.44 mls/hr Q12H IV Last administered on 08/31/18at 06:52; Admin Dose 4.32 MLS/HR; Start 08/30/18 at 03:30 Aztreonam 2 gm/ Sodium Chloride 100 ml @ 100 mls/hr Q12H IVPB Last administered on 08/31/18at 05:08; Admin Dose 100 MLS/HR; Start 08/30/18 at 05:00 Vancomycin HCl (Vanco Iv Per Pharmacy) VANCOMYCIN PER PHARMACY PER PROTOCOL XX ; Start 08/30/18 at 04:30 Vancomycin/Sodium Chloride 250 ml @ 125 mls/hr Q24H IVPB Last administered on 08/30/18at 21:40; Admin Dose 125 MLS/HR; Start 08/30/18 at 20:00 Enoxaparin Sodium (Lovenox) 40 mg DAILY SC Last administered on 08/31/18at 08:35; Admin Dose 40 MG; Start 08/30/18 at 04:45 Guaifenesin/ Dextromethorphan (Robitussin Dm Liquid Cup) 5 ml Q4H PRN PO cough; Start 08/30/18 at 13:00 Assessment/Plan Chief Complaint/Hosp Course IMP: 1. Acute on chronic hypercapnic and hypoxemic resp failure--appears to be possibly due to a combination of a RLL and possibly ADHF--in a patient with COPD 2. Severe Ischemic Hepatopathy--likely due to severe pre-renal state vs. cardiorenal 3. TERRA--likely pre-renal 4. Lactic Acidosis 5. Post-hypercapnic metabolic alkalosis 6. Hypothyroidism RECS: 1. Vent support--> reduce minute ventilation by decreasing RR and Vt 2. IV abx 3. Resp GS//Cx and BC x2 4. Aspiration precautions 5. Start tube feeding 6. Follow lactate clearance; liver tests; and cardiac enzymes 7. Transfer to [facility] Critical care time 40 minutes REBA CHAIDEZ MD, [facility] Aug 31, 2018 10:03
[2018-08-31] MEDS ORDERED: FUROSEMIDE 40 MG INJ IV ONE (12:30)
[2018-08-31] MEDS: SOD CHLORIDE 0.9% 1,000 ML IV SCH ×2 (13:17→23:57)
--- NOTE | 2018-08-31 13:17 | CONS ---
Date/Time of Note Date/Time of Note DATE: 08/31/18 TIME: 13:10 Assessment/Plan Assessment/Plan Hospital Course IMPRESSION 1. Hypotension/shock, improved off of pressors at this time.-improved off of pressors. EF 55% by echo this admit. Neg trop x 3 2. Respiratory failure status post intubation. 3. Chronic obstructive pulmonary disease. 4. Lactic acidosis. 5. Hypothyroidism. 6. Increased liver function tests. Recc: -ICU -wean vent as possible -Follow BP closely off of pressors -continue abx's and f/u cx data Result Diagram: 08/31/18 0444 08/31/18 0444 Results 24hrs Laboratory Tests Test 08/30/18 14:17 08/30/18 17:10 08/30/18 17:51 08/30/18 21:45 Bedside Glucose 108 111 91 Troponin I 0.050 Test 08/31/18 00:43 08/31/18 01:09 08/31/18 04:44 08/31/18 05:00 Troponin I 0.047 0.048 Bedside Glucose 92 White Blood 13.2 #H Count Red Blood Count 3.28 L Hemoglobin 10.6 L Hematocrit 33.3 #L Mean 101.5 H Corpuscular Volume Mean 32.3 Corpuscular Hemoglobin Mean 31.8 L Corpuscular Hemoglobin Conc ent Red Cell 15.7 H Distribution Width Platelet Count 254 # Mean Platelet 10.1 Volume Immature 3.000 H Granulocytes % Neutrophils % 86.5 H Lymphocytes % 7.2 L Monocytes % 3.0 Eosinophils % 0.0 Basophils % 0.3 Nucleated Red 0.2 H Blood Cells % Immature 0.390 H Granulocytes # Neutrophils # 11.4 H Lymphocytes # 1.0 Monocytes # 0.4 Eosinophils # 0.0 Basophils # 0.0 Nucleated Red 0.0 Blood Cells # Sodium Level 147 H Potassium Level 4.4 Chloride Level 101 Carbon Dioxide 37 H Level Anion Gap 9 Blood Urea 31 H Nitrogen Creatinine 0.88 Est Glomerular Filtrat Rate mL/min Glucose Level 85 # Lactic Acid 1.1 Level Calcium Level 7.9 L Total Bilirubin 0.1 L Direct 0.00 Bilirubin Indirect 0.1 Bilirubin Aspartate Amino 1677 H Transf (AST/SGO T) Alanine 1475 H Aminotransferas e (ALT/SGPT) Alkaline 115 Phosphatase Total Protein 5.5 L Albumin 2.9 L Globulin 2.60 Albumin/Globuli 1.11 n Ratio Blood Gas Blood arterial Specimen Source Arterial Blood 08/31/2018 4:52 Date Drawn :26 AM Arterial Blood 7.445 pH (Temp corrected ) Arterial Blood 50.7 H pCO2 (Temp correct) Arterial Blood 78.5 L pO2 (Temp corrected ) Arterial Blood 34.1 H HCO3 Arterial Blood 8.6 H Base Excess Arterial Blood 95.0 Oxygen Saturati on Yordan Test ACCEPTAB Arterial Blood Left Radial Gas Puncture Site Arterial 1.1 Blood Carboxyhe moglobin Arterial Blood 0.2 Methemoglobin Blood Gas A-a 402.4 H O2 Differential Oxyhemoglobin 93.8 Percent Blood Gas 37.0 Temperature Blood Gas 14.0 Respiration Rate Blood Gas 14 Actual Respiration Rat e Blood Gas VENT - AC Modality FiO2 75.0 Blood Gas Tidal 450.0 Volume Blood Gas Low 10.0 PEEP Setting Blood Gas Notified Whom Blood Gas 08/31/2018 5:05 Notified Time :13 AM Test 08/31/18 05:04 08/31/18 08:32 08/31/18 12:23 Bedside Glucose 71 73 78 Consultation Date/Type/Reason Admit Date/Time Aug 29, 2018 at 22:04 Initial Consult Date 08/30/18 Type of Consult cardiology Reason for Consultation hypotension Requesting Provider: MARYLIN SERVIN MD Exam/Review of Systems Vital Signs Vitals Vital Signs Date Temp Pulse Resp B/P (MAP) Pulse Ox O2 O2 Flow FiO2 Time Delivery Rate 08/31/18 70 12:00 08/31/18 98.0 75 14 115/79 92 Mechanical 12:00 (91) Ventilator 08/29/18 10 19:25 Intake and Output 08/30/18 08/30/18 08/31/18 1515:00 23:00 07:00 IntakeIntake Total 594.51 ml 525.44 ml 785.44 ml OutputOutput Total 340 ml 330 ml 360 ml BalanceBalance 254.51 ml 195.44 ml 425.44 ml Exam Review of Systems: CONSTITUTIONAL: No fevers, chills. PULMONARY: intubated CARDIOVASCULAR: No chest pain/palpitations GASTROINTESTINAL: No nausea/vomiting. GENITOURINARY: No hematuria/dysuria. MUSCULOSKELETAL: No myagias/arthalgias. PSYCHIATRIC: The patient denies depression. NEUROLOGIC: No weakness Constitutional: other (sedated) Psych: no complaints Head: normocephalic ENMT: intubated Neck: supple, jvd (9 cm water) Respiratory: diminished breath sounds (at bases/B) Cardiovascular: regular rate and rhythm Gastrointestinal: soft, non-tender Musculoskeletal: other (no focal deficits) Extremities: edema (none) Medications Medications Current Medications Propofol 100 ml @ 1.62 mls/hr ONCE STAT IV Last administered on 08/29/18at 20:22; Admin Dose 1.62 MLS/HR; Start 08/29/18 at 20:06; Stop 09/01/18 at 09:49 Sodium Chloride 1,000 ml @ 80 mls/hr [id number] IV Last administered on 08/30/18at 21:46; Admin Dose 80 MLS/HR; Start 08/29/18 at 21:57 Albuterol (Ventolin Hfa) 4 puff Q2H RESP THERAPY PRN INH SHORTNESS OF BREATH; Start 08/29/18 at 22:00 Ipratropium [place] (Atrovent Hfa) 4 puff Q2H RESP THERAPY PRN INH SHORTNESS OF BREATH; Start 08/29/18 at 22:00 Acetaminophen (Tylenol Liquid) 650 mg Q6H PRN NGT PAIN LEVEL 1-3 OR FEVER; Start 08/29/18 at 22:00 Pantoprazole (Protonix Iv) 40 mg DAILY@06 IV Last administered on 08/31/18at 05:08; Admin Dose 40 MG; Start 08/30/18 at 06:00 Insulin Aspart (Novolog Insulin Pen) NOVOLOG *MILD* ALGORI... Q4 SC Last administered on 08/30/18at 08:13; Admin Dose 1 UNIT; Start 08/30/18 at 01:00 Levothyroxine Sodium (Synthroid Iv) 88 mcg DAILY@0700 IV Last administered on 08/31/18at 06:46; Admin Dose 88 MCG; Start 08/30/18 at 07:00 Miscellaneous Information 1 ea NOTE XX ; Start 08/29/18 at 23:30 Glucose (Glutose) 15 gm Q15M PRN PO DECREASED GLUCOSE; Start 08/29/18 at 23:30 Glucose (Glutose) 22.5 gm Q15M PRN PO DECREASED GLUCOSE; Start 08/29/18 at 23:30 Dextrose (D50w Syringe) 25 ml Q15M PRN IV DECREASED GLUCOSE; Start 08/29/18 at 23:30 Dextrose (D50w Syringe) 50 ml Q15M PRN IV DECREASED GLUCOSE; Start 08/29/18 at 23:30 Glucagon (Glucagen) 1 mg Q15M PRN IM DECREASED GLUCOSE; Start 08/29/18 at 23:30 Glucose (Glutose) 15 gm Q15M PRN BUCCAL DECREASED GLUCOSE; Start 08/29/18 at 23:30 Fentanyl 100 ml @ 0.1 mls/hr TITRATE IV Last administered on 08/30/18at 02:16; Admin Dose 0.2 MLS/HR; Start 08/30/18 at 02:00 Propofol 100 ml @ 1.44 mls/hr Q12H IV Last administered on 08/31/18at 06:52; Admin Dose 4.32 MLS/HR; Start 08/30/18 at 03:30 Aztreonam 2 gm/ Sodium Chloride 100 ml @ 100 mls/hr Q12H IVPB Last administered on 08/31/18at 05:08; Admin Dose 100 MLS/HR; Start 08/30/18 at 05:00 Vancomycin HCl (Vanco Iv Per Pharmacy) VANCOMYCIN PER PHARMACY PER PROTOCOL XX ; Start 08/30/18 at 04:30 Vancomycin/Sodium Chloride 250 ml @ 125 mls/hr Q24H IVPB Last administered on 08/30/18at 21:40; Admin Dose 125 MLS/HR; Start 08/30/18 at 20:00 Enoxaparin Sodium (Lovenox) 40 mg DAILY SC Last administered on 08/31/18at 08:35; Admin Dose 40 MG; Start 08/30/18 at 04:45 Guaifenesin/ Dextromethorphan (Robitussin Dm Liquid Cup) 5 ml Q4H PRN PO cough; Start 08/30/18 at 13:00 DANIELA FERRERA Aug 31, 2018 13:17
--- NOTE | 2018-08-31 14:18 | NUR ---
CM NOTES: SENT ALL CLINICAL UPDATE TO [facility] [phone] (O) AND FAXED [phone]. T/C AND S/W [facility] [phone] THAT FIO2 IS TOO HIGH AND NEEDS TO DECREASE TO FIO2 50% OR LESS. FURTHERMORE REPEAT ABG NEEDS TO BE DONE WHEN FIO2 DOWN TO 50%. INFORMED BEDSIDE NURSE [place]ERSON AND ATTENDING DR DIAMOND. ASSIGNED CM TOMORROW WILL NEED TO FOLLOW UP WITH CLINICAL REVIEW AND TRANSFER TOMORROW. SUZIE CARRIZALES LEAD CM [phone]
--- NOTE | 2018-08-31 17:38 | PN ---
Date/Time of Note Date/Time of Note DATE: 08/31/18 TIME: 17:31 Assessment/Plan VTE [place] [facility] [place]: 10 [place] [facility] [place] Yes Pharmacological prophylaxis: LMWH Pharm contraindication: other Assessment/Plan Assessment/Plan 1. 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 Septic shock secondary to pneumonia Continue vancomycin and aztreonam 3. Hypothyroidism Continue home meds 4. Essential hypertension Hold home meds secondary to sepsis 5. History of osteoporosis No acute issues 6. Severe Ischemic Hepatopathy likely due to shock liver versus cardiorenal- improving Monitor Prophylaxis: Lovenox DC planning: Anticipate DC to [place] once FiO2 at 50% Result Diagram: 08/31/18 0444 08/31/18 0444 Results 24hrs Laboratory Tests Test 08/30/18 17:51 08/30/18 21:45 08/31/18 00:43 08/31/18 01:09 Troponin I 0.050 0.047 Bedside Glucose 91 92 Test 08/31/18 04:44 08/31/18 05:00 08/31/18 05:04 08/31/18 08:32 White Blood 13.2 #H Count Red Blood Count 3.28 L Hemoglobin 10.6 L Hematocrit 33.3 #L Mean 101.5 H Corpuscular Volume Mean 32.3 Corpuscular Hemoglobin Mean 31.8 L Corpuscular Hemoglobin Conc ent Red Cell 15.7 H Distribution Width Platelet Count 254 # Mean Platelet 10.1 Volume Immature 3.000 H Granulocytes % Neutrophils % 86.5 H Lymphocytes % 7.2 L Monocytes % 3.0 Eosinophils % 0.0 Basophils % 0.3 Nucleated Red 0.2 H Blood Cells % Immature 0.390 H Granulocytes # Neutrophils # 11.4 H Lymphocytes # 1.0 Monocytes # 0.4 Eosinophils # 0.0 Basophils # 0.0 Nucleated Red 0.0 Blood Cells # Sodium Level 147 H Potassium Level 4.4 Chloride Level 101 Carbon Dioxide 37 H Level Anion Gap 9 Blood Urea 31 H Nitrogen Creatinine 0.88 Est Glomerular Filtrat Rate mL/min Glucose Level 85 # Lactic Acid 1.1 Level Calcium Level 7.9 L Total Bilirubin 0.1 L Direct 0.00 Bilirubin Indirect 0.1 Bilirubin Aspartate Amino 1677 H Transf (AST/SGO T) Alanine 1475 H Aminotransferas e (ALT/SGPT) Alkaline 115 Phosphatase Troponin I 0.048 Total Protein 5.5 L Albumin 2.9 L Globulin 2.60 Albumin/Globuli 1.11 n Ratio Blood Gas Blood arterial Specimen Source Arterial Blood 08/31/2018 4:52 Date Drawn :26 AM Arterial Blood 7.445 pH (Temp corrected ) Arterial Blood 50.7 H pCO2 (Temp correct) Arterial Blood 78.5 L pO2 (Temp corrected ) Arterial Blood 34.1 H HCO3 Arterial Blood 8.6 H Base Excess Arterial Blood 95.0 Oxygen Saturati on Yordan Test ACCEPTAB Arterial Blood Left Radial Gas Puncture Site Arterial 1.1 Blood Carboxyhe moglobin Arterial Blood 0.2 Methemoglobin Blood Gas A-a 402.4 H O2 Differential Oxyhemoglobin 93.8 Percent Blood Gas 37.0 Temperature Blood Gas 14.0 Respiration Rate Blood Gas 14 Actual Respiration Rat e Blood Gas VENT - AC Modality FiO2 75.0 Blood Gas Tidal 450.0 Volume Blood Gas Low 10.0 PEEP Setting Blood Gas Notified Whom Blood Gas 08/31/2018 5:05 Notified Time :13 AM Bedside Glucose 71 73 Test 08/31/18 12:23 08/31/18 16:27 Bedside Glucose 78 86 Subjective 24 Hr Interval Summary Subjective hx not possible: pt non-verbal Exam/Review of Systems Vital Signs Vitals Vital Signs Date Temp Pulse Resp B/P (MAP) Pulse Ox O2 O2 Flow FiO2 Time Delivery Rate 08/31/18 79 14 103/81 16:15 (88) 08/31/18 70 16:00 08/31/18 97.8 95 Mechanical 16:00 Ventilator 08/29/18 10 19:25 Intake and Output 08/30/18 08/30/18 08/31/18 1515:00 23:00 07:00 IntakeIntake Total 594.51 ml 525.44 ml 785.44 ml OutputOutput Total 340 ml 330 ml 360 ml BalanceBalance 254.51 ml 195.44 ml 425.44 ml Exam Constitutional: non-verbal ENMT: intubated Respiratory: clear to auscultation Cardiovascular: regular rate and rhythm Gastrointestinal: soft; No distended Musculoskeletal: nl extremities to inspection Medications Medications Current Medications Propofol 100 ml @ 1.62 mls/hr ONCE STAT IV Last administered on 08/29/18at 20:22; Admin Dose 1.62 MLS/HR; Start 08/29/18 at 20:06; Stop 09/01/18 at 09:49 Sodium Chloride 1,000 ml @ 80 mls/hr [id number] IV Last administered on 08/31/18at 13:17; Admin Dose 80 MLS/HR; Start 08/29/18 at 21:57 Albuterol (Ventolin Hfa) 4 puff Q2H RESP THERAPY PRN INH SHORTNESS OF BREATH; Start 08/29/18 at 22:00 Ipratropium [place] (Atrovent Hfa) 4 puff Q2H RESP THERAPY PRN INH SHORTNESS OF BREATH; Start 08/29/18 at 22:00 Acetaminophen (Tylenol Liquid) 650 mg Q6H PRN NGT PAIN LEVEL 1-3 OR FEVER; Start 08/29/18 at 22:00 Pantoprazole (Protonix Iv) 40 mg DAILY@06 IV Last administered on 08/31/18at 05:08; Admin Dose 40 MG; Start 08/30/18 at 06:00 Insulin Aspart (Novolog Insulin Pen) NOVOLOG *MILD* ALGORI... Q4 SC Last administered on 08/30/18at 08:13; Admin Dose 1 UNIT; Start 08/30/18 at 01:00 Levothyroxine Sodium (Synthroid Iv) 88 mcg DAILY@0700 IV Last administered on 08/31/18at 06:46; Admin Dose 88 MCG; Start 08/30/18 at 07:00 Miscellaneous Information 1 ea NOTE XX ; Start 08/29/18 at 23:30 Glucose (Glutose) 15 gm Q15M PRN PO DECREASED GLUCOSE; Start 08/29/18 at 23:30 Glucose (Glutose) 22.5 gm Q15M PRN PO DECREASED GLUCOSE; Start 08/29/18 at 23:30 Dextrose (D50w Syringe) 25 ml Q15M PRN IV DECREASED GLUCOSE; Start 08/29/18 at 23:30 Dextrose (D50w Syringe) 50 ml Q15M PRN IV DECREASED GLUCOSE; Start 08/29/18 at 23:30 Glucagon (Glucagen) 1 mg Q15M PRN IM DECREASED GLUCOSE; Start 08/29/18 at 23:30 Glucose (Glutose) 15 gm Q15M PRN BUCCAL DECREASED GLUCOSE; Start 08/29/18 at 23:30 Fentanyl 100 ml @ 0.1 mls/hr TITRATE IV Last administered on 08/30/18at 02:16; Admin Dose 0.2 MLS/HR; Start 08/30/18 at 02:00 Propofol 100 ml @ 1.44 mls/hr Q12H IV Last administered on 08/31/18at 16:23; Admin Dose 7.2 MLS/HR; Start 08/30/18 at 03:30 Aztreonam 2 gm/ Sodium Chloride 100 ml @ 100 mls/hr Q12H IVPB Last administe red on 08/31/18at 16:29; Admin Dose 100 MLS/HR; Start 08/30/18 at 05:00 Vancomycin HCl (Vanco Iv Per Pharmacy) VANCOMYCIN PER PHARMACY PER PROTOCOL XX ; Start 08/30/18 at 04:30 Vancomycin/Sodium Chloride 250 ml @ 125 mls/hr Q24H IVPB Last administered on 08/30/18at 21:40; Admin Dose 125 MLS/HR; Start 08/30/18 at 20:00 Enoxaparin Sodium (Lovenox) 40 mg DAILY SC Last administered on 08/31/18at 08:35; Admin Dose 40 MG; Start 08/30/18 at 04:45 Guaifenesin/ Dextromethorphan (Robitussin Dm Liquid Cup) 5 ml Q4H PRN PO cough; Start 08/30/18 at 13:00 ANA DIAMOND Aug 31, 2018 17:38
[2018-08-31] MEDS: VANCOMYCIN 750 MG (PMX) 250 ML IVPB SCH (20:51)
[2018-09-01] VITALS (113 sets, daily range): BP systolic 69–141; BP diastolic 52–86; PULSE 55–153; RESP 0–28
[2018-09-01] MEDS: NORepinephrine 8MG/250 ML (PMX 250 ML IV SCH (00:57)
[2018-09-01] MEDS: INSULIN ASPART [NOVOLOG] 3 ML PEN SC SCH ×6 (01:00→20:11)
[2018-09-01] MEDS ORDERED: PHENYLephrine 20MG IN 250 ML 250 ML ONE (01:21)
[2018-09-01] MEDS: PHENYLephrine 20MG IN 250 ML 250 ML IV SCH ×4 (01:29→23:33)
[2018-09-01] MEDS ORDERED: SOD CHLORIDE 0.9% 500 ML IV ONE (01:30)
[2018-09-01] MEDS ORDERED: MAGNESIUM SULFATE 2 GM/50 ML 50 ML IVPB ONE (03:30)
[2018-09-01] MEDS: AZTREONAM 2 GM in SOD CHLORIDE 0.9% 100 ML IVPB SCH ×2 (04:39→17:08)
[2018-09-01] MEDS: PROPOFOL 100 ML IV SCH ×3 (04:39→20:38)
[2018-09-01] MEDS: SOD CHLORIDE 0.9% 1,000 ML IV SCH ×2 (05:09→18:52)
--- NOTE | 2018-09-01 06:00 | NUR ---
EOSS PT INTUBATED AND SEDATED BUT MOVES EXTREMITIES.PT WOULD TRIGGER VENT UNTIL INCREASED SEDATION. PT ALSO HYPOTENSIVE MOST OF SHIFT. WITH INCREASED SEDATION, FURTHER HYPOTENSION. OBTAINED AN ORDER FOR LEVOPHED AND STARTED AT 1MCG FOR SUPPORT, AND PT WENT INTO AFIB W/ RVR 150S. AND RUNS OF SVT. BP STILL LOW SO WE STARTED MELANI WITH SAME EFFECT. 500 CC BOLUS GIVEN. STAT LABS DRAWN REVEALED MG OF 1.6. MAG REPLACED AND PT CONVERTED INTO NSR/ SB. PT VENTILATOR DEPENDENT REQUIRING MORE FIO2 80-100% THROUGHOUT THE NIGHT. PT DOES NOT TOLERATE LEFT SIDE OR BACK LYING D/T R SIDED PNA. PT TOLERATING TF. NO CURRENT S/S DISTRESS . BP WNL ON 50 MCG MELANI. WCTM
[2018-09-01] MEDS: LEVOTHYROXINE 100 MCG VIAL IV SCH (06:23)
[2018-09-01] MEDS: PANTOPRAZOLE 40 MG INJ IV SCH (06:23)
[2018-09-01] MEDS: ENOXAPARIN 40 MG/0.4 ML SYG SC SCH (08:46)
--- NOTE | 2018-09-01 09:48 | CONS ---
Date/Time of Note Date/Time of Note DATE: 09/01/18 TIME: 09:46 Consult Date/Type/Reason Admit Date/Time Aug 29, 2018 at 22:04 Initial Consult Date 08/30/18 Type of Consultation: ICU Requesting Provider: MARYLIN SERVIN MD Subjective Patient desatted overnight comp located by atrial fibrillation rapid ventricular response now requiring vasopressor support. In addition worsening hypoxemia now with FiO2 80% and a PEEP of 8. Chest x-ray shows pulmonary edema versus right lower lobe infiltrate. Objective Vital Signs Date Temp Pulse Resp B/P (MAP) Pulse Ox O2 O2 Flow FiO2 Time Delivery Rate 09/01/18 61 134/86 92 09:15 (102) 09/01/18 13 Mechanical 09:00 Ventilator 09/01/18 97.9 08:00 09/01/18 80 04:37 08/29/18 10 19:25 Intake and Output 08/31/18 08/31/18 09/01/18 1515:00 23:00 07:00 IntakeIntake Total 736.9 ml 1091.2 ml 1132.7 ml OutputOutput Total 2815 ml 925 ml 460 ml BalanceBalance -2078.1 ml 166.2 ml 672.7 ml Exam GENERAL: Chronically ill-appearing lady orally intubated on mechanical ventilation VITAL SIGNS: per chart NECK: Supple. No JVD or lymphadenopathy. CARDIAC EXAM: S1, S2. No added sounds or murmurs. CHEST: Diminished air entry bilaterally ABDOMEN: Soft, nontender. No guarding or rebound. EXTREMITIES: No cyanosis, clubbing or edema. NEUROLOGIC: Generalized weakness. No focal deficits. Results/Medications Result Diagram: 09/01/1852009/01/18 0521 Results 24 hrs Laboratory Tests Test 08/31/18 12:23 08/31/18 16:27 08/31/18 20:41 09/01/18 01:32 Bedside Glucose 78 86 94 95 Test 09/01/18 01:45 09/01/18 04:42 09/01/18 05:21 09/01/18 05:30 Sodium Level 144 144 Potassium Level 3.7 3.7 Chloride Level 104 103 Carbon Dioxide 37 H 36 H Level Anion Gap 3 L 5 Blood Urea 28 H 25 H Nitrogen Creatinine 0.67 0.63 Est Glomerular Filtrat Rate mL/min Glucose Level 95 110 Calcium Level 7.7 L 7.8 L Magnesium Level 1.6 L 2.3 Bedside Glucose 101 White Blood 12.9 H Count Red Blood Count 3.40 L Hemoglobin 11.0 L Hematocrit 34.5 L Mean Corpuscular 101.5 H Volume Mean Corpuscular 32.4 Hemoglobin Mean Corpuscular 31.9 L Hemoglobin Mony nt Red Cell 16.1 H Distribution Width Platelet Count 225 Mean Platelet 10.0 Volume Immature 3.000 H Granulocytes % Neutrophils % 85.3 H Lymphocytes % 8.1 L Monocytes % 2.9 Eosinophils % 0.5 Basophils % 0.2 Nucleated Red 0.2 H Blood Cells % Immature 0.390 H Granulocytes # Neutrophils # 11.0 H Lymphocytes # 1.1 Monocytes # 0.4 Eosinophils # 0.1 Basophils # 0.0 Nucleated Red 0.0 Blood Cells # Total Bilirubin 0.2 Direct Bilirubin 0.00 Indirect 0.2 Bilirubin Aspartate Amino 636 H Transf (AST/SGOT ) Alanine 941 H Aminotransferase (ALT/SGPT) Alkaline 110 Phosphatase Total Protein 5.4 L Albumin 2.8 L Globulin 2.60 Albumin/Globulin 1.07 Ratio Test 09/01/18 07:02 09/01/18 08:43 Blood Gas Blood arterial Specimen Source Arterial Blood 09/01/2018 7:55:11 Date Drawn AM Arterial Blood 7.415 pH (Temp corrected) Arterial Blood 51.9 H pCO2 (Temp correct) Arterial Blood 69.5 L pO2 (Temp corrected) Arterial Blood 32.5 H HCO3 Arterial Blood 6.6 H Base Excess Arterial Blood 93.0 L Oxygen Saturatio n Yordan Test ACCEPTAB Arterial Blood Left Radial Gas Puncture Site Arterial 0.4 Blood Carboxyhem oglobin Arterial Blood 0.1 Methemoglobin Blood Gas A-a O2 446.4 H Differential Oxyhemoglobin 92.5 L Percent Blood Gas 37.0 Temperature Blood Gas 14.0 Respiration Rate Blood Gas Actual 16 Respiration Rate Blood Gas VENT - AC Modality FiO2 80.0 Blood Gas Tidal 450.0 Volume Blood Gas Low 10.0 PEEP Setting Blood Gas AT Notified Whom Blood Gas 09/01/2018 8:11:39 Notified Time AM Bedside Glucose 115 Medications Current Medications Propofol 100 ml @ 1.62 mls/hr ONCE STAT IV Last administered on 08/29/18at 20:22; Admin Dose 1.62 MLS/HR; Start 08/29/18 at 20:06; Stop 09/01/18 at 09:49 Sodium Chloride 1,000 ml @ 80 mls/hr [id number] IV Last administered on 09/01/18at 05:09; Admin Dose 80 MLS/HR; Start 08/29/18 at 21:57 Albuterol (Ventolin Hfa) 4 puff Q2H RESP THERAPY PRN INH SHORTNESS OF BREATH Last administered on 09/01/18at 05:32; Admin Dose 4 PUFF; Start 08/29/18 at 22:00 Ipratropium [place] (Atrovent Hfa) 4 puff Q2H RESP THERAPY PRN INH SHORTNESS OF BREATH; Start 08/29/18 at 22:00 Acetaminophen (Tylenol Liquid) 650 mg Q6H PRN NGT PAIN LEVEL 1-3 OR FEVER; Start 08/29/18 at 22:00 Pantoprazole (Protonix Iv) 40 mg DAILY@06 IV Last administered on 09/01/18at 06:23; Admin Dose 40 MG; Start 08/30/18 at 06:00 Insulin Aspart (Novolog Insulin Pen) NOVOLOG *MILD* ALGORI... Q4 SC Last administered on 08/30/18at 08:13; Admin Dose 1 UNIT; Start 08/30/18 at 01:00 Levothyroxine Sodium (Synthroid Iv) 88 mcg DAILY@0700 IV Last administered on 09/01/18at 06:23; Admin Dose 88 MCG; Start 08/30/18 at 07:00 Miscellaneous Information 1 ea NOTE XX ; Start 08/29/18 at 23:30 Glucose (Glutose) 15 gm Q15M PRN PO DECREASED GLUCOSE; Start 08/29/18 at 23:30 Glucose (Glutose) 22.5 gm Q15M PRN PO DECREASED GLUCOSE; Start 08/29/18 at 23:30 Dextrose (D50w Syringe) 25 ml Q15M PRN IV DECREASED GLUCOSE; Start 08/29/18 at 23:30 Dextrose (D50w Syringe) 50 ml Q15M PRN IV DECREASED GLUCOSE; Start 08/29/18 at 23:30 Glucagon (Glucagen) 1 mg Q15M PRN IM DECREASED GLUCOSE; Start 08/29/18 at 23:30 Glucose (Glutose) 15 gm Q15M PRN BUCCAL DECREASED GLUCOSE; Start 08/29/18 at 23:30 Fentanyl 100 ml @ 0.1 mls/hr TITRATE IV Last administered on 08/30/18at 02:16; Admin Dose 0.2 MLS/HR; Start 08/30/18 at 02:00 Propofol 100 ml @ 1.44 mls/hr Q12H IV Last administered on 09/01/18 04:39; Admin Dose 7.2 MLS/HR; Start 08/30/18 at 03:30 Aztreonam 2 gm/ Sodium Chloride 100 ml @ 100 mls/hr Q12H IVPB Last administered on 09/01/18 04:39; Admin Dose 100 MLS/HR; Start 08/30/18 at 05:00 Vancomycin HCl (Vanco Iv Per Pharmacy) VANCOMYCIN PER PHARMACY PER PROTOCOL XX ; Start 08/30/18 at 04:30 Vancomycin/Sodium Chloride 250 ml @ 125 mls/hr Q24H IVPB Last administered on 08/31/18at 20:51; Admin Dose 125 MLS/HR; Start 08/30/18 at 20:00 Enoxaparin Sodium (Lovenox) 40 mg DAILY SC Last administered on 09/01/18at 08:46; Admin Dose 40 MG; Start 08/30/18 at 04:45 Guaifenesin/ Dextromethorphan (Robitussin Dm Liquid Cup) 5 ml Q4H PRN PO cough; Start 08/30/18 at 13:00 Norepinephrine 250 ml @ 1.875 mls/ hr TITRATE IV Last administered on 09/01/18 00:57; Admin Dose 1.875 MLS/HR; Start 09/01/18 at 00:00 Phenylephrine HCl 250 ml @ 75 mls/hr TITRATE IV Last administered on 09/01/18at 09:02; Admin Dose 75 MLS/HR; Start 09/01/18 at 01:30 Assessment/Plan Chief Complaint/Hosp Course IMP: 1. Acute on chronic hypercapnic and hypoxemic resp failure--appears to be possibly due to a combination of a RLL and possibly ADHF--in a patient with COPD 2. Severe Ischemic Hepatopathy--likely due to severe pre-renal state vs. cardi orenal 3. TERRA--likely pre-renal 4. Septic shock 5. Post-hypercapnic metabolic alkalosis 6. Hypothyroidism RECS: 1. Vent support--> continue mechanical ventilation with a PEEP of 10. 2. IV abx 3. Resp GS//Cx and BC x2 4. Aspiration precautions 5. Nasogastric tube feeding as tolerated 6. Continue vasopressors Currently patient not stable for transfer to telemetry Critical care time 40 minutes REBA CHAIDEZ MD, [facility] Sep 01, 2018 09:48
--- NOTE | 2018-09-01 10:52 | PN ---
Date/Time of Note Date/Time of Note DATE: 09/01/18 TIME: 10:49 Assessment/Plan VTE Prophylaxis Risk score (from [facility] – [place], [place])>0 risk: 16 SCD applied (from [facility] [place], [place]): Yes Pharmacological prophylaxis: LMWH Assessment/Plan Hospital Course 1. Acute hypoxemic and hypercapnic on chronic respiratory failure secondary to pneumonia on diastolic heart failure and COPD Continue vent support, patient still on aggressive vent settings 2. Septic shock secondary to pneumonia Continue vancomycin and aztreonam Pressors as needed 3. Hypothyroidism Continue home meds 4. Essential hypertension Hold home meds secondary to sepsis 5. History of osteoporosis No acute issues 6. Severe Ischemic Hepatopathy likely due to shock liver versus cardiorenal- improving Monitor Prophylaxis: Lovenox DC planning: Anticipate DC to [place] once FiO2 at 50% Result Diagram: 09/01/1852009/01/18520 Results 24hrs Laboratory Tests Test 08/31/18 12:23 08/31/18 16:27 08/31/18 20:41 09/01/18 01:32 Bedside Glucose 78 86 94 95 Test 09/01/18 01:45 09/01/18 04:42 09/01/18 05:21 09/01/18 05:30 Sodium Level 144 144 Potassium Level 3.7 3.7 Chloride Level 104 103 Carbon Dioxide 37 H 36 H Level Anion Gap 3 L 5 Blood Urea 28 H 25 H Nitrogen Creatinine 0.67 0.63 Est Glomerular Filtrat Rate mL/min Glucose Level 95 110 Calcium Level 7.7 L 7.8 L Magnesium Level 1.6 L 2.3 Bedside Glucose 101 White Blood 12.9 H Count Red Blood Count 3.40 L Hemoglobin 11.0 L Hematocrit 34.5 L Mean Corpuscular 101.5 H Volume Mean Corpuscular 32.4 Hemoglobin Mean Corpuscular 31.9 L Hemoglobin Mony nt Red Cell 16.1 H Distribution Width Platelet Count 225 Mean Platelet 10.0 Volume Immature 3.000 H Granulocytes % Neutrophils % 85.3 H Lymphocytes % 8.1 L Monocytes % 2.9 Eosinophils % 0.5 Basophils % 0.2 Nucleated Red 0.2 H Blood Cells % Immature 0.390 H Granulocytes # Neutrophils # 11.0 H Lymphocytes # 1.1 Monocytes # 0.4 Eosinophils # 0.1 Basophils # 0.0 Nucleated Red 0.0 Blood Cells # Total Bilirubin 0.2 Direct Bilirubin 0.00 Indirect 0.2 Bilirubin Aspartate Amino 636 H Transf (AST/SGOT ) Alanine 941 H Aminotransferase (ALT/SGPT) Alkaline 110 Phosphatase Total Protein 5.4 L Albumin 2.8 L Globulin 2.60 Albumin/Globulin 1.07 Ratio Test 09/01/18 07:02 09/01/18 08:43 Blood Gas Blood arterial Specimen Source Arterial Blood 09/01/2018 7:55:11 Date Drawn AM Arterial Blood 7.415 pH (Temp corrected) Arterial Blood 51.9 H pCO2 (Temp correct) Arterial Blood 69.5 L pO2 (Temp corrected) Arterial Blood 32.5 H HCO3 Arterial Blood 6.6 H Base Excess Arterial Blood 93.0 L Oxygen Saturatio n [place] Test ACCEPTAB Arterial Blood Left Radial Gas Puncture Site Arterial 0.4 Blood Carboxyhem oglobin Arterial Blood 0.1 Methemoglobin Blood Gas A-a O2 446.4 H Differential Oxyhemoglobin 92.5 L Percent Blood Gas 37.0 Temperature Blood Gas 14.0 Respiration Rate Blood Gas Actual 16 Respiration Rate Blood Gas VENT - AC Modality FiO2 80.0 Blood Gas Tidal 450.0 Volume Blood Gas Low 10.0 PEEP Setting Blood Gas AT Notified Whom Blood Gas 09/01/2018 8:11:39 Notified Time AM Bedside Glucose 115 Subjective 24 Hr Interval Summary Subjective hx not possible: pt non-verbal Exam/Review of Systems Vital Signs Vitals Vital Signs Date Temp Pulse Resp B/P (MAP) Pulse Ox O2 O2 Flow FiO2 Time Delivery Rate 09/01/18 61 134/86 92 09:15 (102) 09/01/18 13 Mechanical 09:00 Ventilator 09/01/18 97.9 08:00 09/01/18 80 04:37 08/29/18 10 19:25 Intake and Output 08/31/18 08/31/18 09/01/18 1515:00 23:00 07:00 IntakeIntake Total 736.9 ml 1091.2 ml 1132.7 ml OutputOutput Total 2815 ml 925 ml 460 ml BalanceBalance -2078.1 ml 166.2 ml 672.7 ml Exam Constitutional: non-verbal Cardiovascular: regular rate and rhythm Gastrointestinal: soft; No distended Musculoskeletal: nl extremities to inspection Medications Medications Current Medications Sodium Chloride 1,000 ml @ 80 mls/hr [id number] IV Last administered on 09/01/18 05:09; Admin Dose 80 MLS/HR; Start 08/29/18 at 21:57 Albuterol (Ventolin Hfa) 4 puff Q2H RESP THERAPY PRN INH SHORTNESS OF BREATH Last administered on 09/01/18 05:32; Admin Dose 4 PUFF; Start 08/29/18 at 22:00 Ipratropium [place] (Atrovent Hfa) 4 puff Q2H RESP THERAPY PRN INH SHORTNESS OF BREATH; Start 08/29/18 at 22:00 Acetaminophen (Tylenol Liquid) 650 mg Q6H PRN NGT PAIN LEVEL 1-3 OR FEVER; Start 08/29/18 at 22:00 Pantoprazole (Protonix Iv) 40 mg DAILY@06 IV Last administered on 09/01/18 06:23; Admin Dose 40 MG; Start 08/30/18 at 06:00 Insulin Aspart (Novolog Insulin Pen) NOVOLOG *MILD* ALGORI... Q4 SC Last administered on 08/30/18at 08:13; Admin Dose 1 UNIT; Start 08/30/18 at 01:00 Levothyroxine Sodium (Synthroid Iv) 88 mcg DAILY@0700 IV Last administered on 09/01/18 06:23; Admin Dose 88 MCG; Start 08/30/18 at 07:00 Miscellaneous Information 1 ea NOTE XX ; Start 08/29/18 at 23:30 Glucose (Glutose) 15 gm Q15M PRN PO DECREASED GLUCOSE; Start 08/29/18 at 23:30 Glucose (Glutose) 22.5 gm Q15M PRN PO DECREASED GLUCOSE; Start 08/29/18 at 23:30 Dextrose (D50w Syringe) 25 ml Q15M PRN IV DECREASED GLUCOSE; Start 08/29/18 at 23:30 Dextrose (D50w Syringe) 50 ml Q15M PRN IV DECREASED GLUCOSE; Start 08/29/18 at 23:30 Glucagon (Glucagen) 1 mg Q15M PRN IM DECREASED GLUCOSE; Start 08/29/18 at 23:30 Glucose (Glutose) 15 gm Q15M PRN BUCCAL DECREASED GLUCOSE; Start 08/29/18 at 23:30 Fentanyl 100 ml @ 0.1 mls/hr TITRATE IV Last administered on 08/30/18at 02:16; Admin Dose 0.2 MLS/HR; Start 08/30/18 at 02:00 Propofol 100 ml @ 1.44 mls/hr Q12H IV Last administered on 09/01/18 04:39; Admin Dose 7.2 MLS/HR; Start 08/30/18 at 03:30 Aztreonam 2 gm/ Sodium Chloride 100 ml @ 100 mls/hr Q12H IVPB Last administered on 09/01/18 04:39; Admin Dose 100 MLS/HR; Start 08/30/18 at 05:00 Vancomycin HCl (Vanco Iv Per Pharmacy) VANCOMYCIN PER PHARMACY PER PROTOCOL XX ; Start 08/30/18 at 04:30 Vancomycin/Sodium Chloride 250 ml @ 125 mls/hr Q24H IVPB Last administered on 08/31/18at 20:51; Admin Dose 125 MLS/HR; Start 08/30/18 at 20:00 Enoxaparin Sodium (Lovenox) 40 mg DAILY SC Last administered on 09/01/18 08:46; Admin Dose 40 MG; Start 08/30/18 at 04:45 Guaifenesin/ Dextromethorphan (Robitussin Dm Liquid Cup) 5 ml Q4H PRN PO cough; Start 08/30/18 at 13:00 Norepinephrine 250 ml @ 1.875 mls/ hr TITRATE IV Last administered on 09/01/18 00:57; Admin Dose 1.875 MLS/HR; Start 09/01/18 at 00:00 Phenylephrine HCl 250 ml @ 75 mls/hr TITRATE IV Last administered on 09/01/18 09:02; Admin Dose 75 MLS/HR; Start 09/01/18 at 01:30 ANA DIAMOND Sep 01, 2018 10:52
--- NOTE | 2018-09-01 12:28 | RADRPT ---
Vent Rate: 65 bpm RR Interval: 0 msec NC Interval: 144 msec QRS Duration: 94 msec QT Interval: 462 msec QTC Interval: 480 msec P-R-T [place]: 78 - 92 - 75 degrees Normal sinus rhythm Rightward axis Low voltage QRS Borderline ECG Electronically Signed By: Cristian Davis [id number]
--- NOTE | 2018-09-01 12:38 | CONS ---
Date/Time of Note Date/Time of Note DATE: 09/01/18 TIME: 12:36 Assessment/Plan Assessment/Plan Hospital Course IMPRESSION 1. Hypotension/shock, improved off of pressors at this time.-Back on pressors. EF 55% by echo this admit. Neg trop x 3 2. Respiratory failure status post intubation. 3. Chronic obstructive pulmonary disease. 4. Lactic acidosis. 5. Hypothyroidism. 6. Increased liver function tests. Recc: -ICU -wean vent as possible -Follow BP closely off of pressors -continue abx's and f/u cx data -wean pressors as tolerated Result Diagram: 09/01/1852009/01/18520 Results 24hrs Laboratory Tests Test 08/31/18 16:27 08/31/18 20:41 09/01/18 01:32 09/01/18 01:45 Bedside Glucose 86 94 95 Sodium Level 144 Potassium Level 3.7 Chloride Level 104 Carbon Dioxide 37 H Level Anion Gap 3 L Blood Urea 28 H Nitrogen Creatinine 0.67 Est Glomerular Filtrat Rate mL/min Glucose Level 95 Calcium Level 7.7 L Magnesium Level 1.6 L Test 09/01/18 04:42 09/01/18 05:21 09/01/18 05:30 09/01/18 07:02 Bedside Glucose 101 White Blood 12.9 H Count Red Blood Count 3.40 L Hemoglobin 11.0 L Hematocrit 34.5 L Mean Corpuscular 101.5 H Volume Mean Corpuscular 32.4 Hemoglobin Mean Corpuscular 31.9 L Hemoglobin Mony nt Red Cell 16.1 H Distribution Width Platelet Count 225 Mean Platelet 10.0 Volume Immature 3.000 H Granulocytes % Neutrophils % 85.3 H Lymphocytes % 8.1 L Monocytes % 2.9 Eosinophils % 0.5 Basophils % 0.2 Nucleated Red 0.2 H Blood Cells % Immature 0.390 H Granulocytes # Neutrophils # 11.0 H Lymphocytes # 1.1 Monocytes # 0.4 Eosinophils # 0.1 Basophils # 0.0 Nucleated Red 0.0 Blood Cells # Sodium Level 144 Potassium Level 3.7 Chloride Level 103 Carbon Dioxide 36 H Level Anion Gap 5 Blood Urea 25 H Nitrogen Creatinine 0.63 Est Glomerular Filtrat Rate mL/min Glucose Level 110 Calcium Level 7.8 L Total Bilirubin 0.2 Direct Bilirubin 0.00 Indirect 0.2 Bilirubin Aspartate Amino 636 H Transf (AST/SGOT ) Alanine 941 H Aminotransferase (ALT/SGPT) Alkaline 110 Phosphatase Total Protein 5.4 L Albumin 2.8 L Globulin 2.60 Albumin/Globulin 1.07 Ratio Magnesium Level 2.3 Blood Gas Blood arterial Specimen Source Arterial Blood 09/01/2018 7:55:11 Date Drawn AM Arterial Blood 7.415 pH (Temp corrected) Arterial Blood 51.9 H pCO2 (Temp correct) Arterial Blood 69.5 L pO2 (Temp corrected) Arterial Blood 32.5 H HCO3 Arterial Blood 6.6 H Base Excess Arterial Blood 93.0 L Oxygen Saturatio n Yordan Test ACCEPTAB Arterial Blood Left Radial Gas Puncture Site Arterial 0.4 Blood Carboxyhem oglobin Arterial Blood 0.1 Methemoglobin Blood Gas A-a O2 446.4 H Differential Oxyhemoglobin 92.5 L Percent Blood Gas 37.0 Temperature Blood Gas 14.0 Respiration Rate Blood Gas Actual 16 Respiration Rate Blood Gas VENT - AC Modality FiO2 80.0 Blood Gas Tidal 450.0 Volume Blood Gas Low 10.0 PEEP Setting Blood Gas AT Notified Whom Blood Gas 09/01/2018 8:11:39 Notified Time AM Test 09/01/18 08:43 Bedside Glucose 115 Consultation Date/Type/Reason Admit Date/Time Aug 29, 2018 at 22:04 Initial Consult Date 08/30/18 Type of Consult cardiology Reason for Consultation hypotension Requesting Provider: MARYLIN SERVIN MD Exam/Review of Systems Vital Signs Vitals Vital Signs Date Temp Pulse Resp B/P (MAP) Pulse Ox O2 O2 Flow FiO2 Time Delivery Rate 09/01/18 98.7 66 16 116/72 93 Mechanical 12:00 (87) Ventilator 09/01/18 80 04:37 08/29/18 10 19:25 Intake and Output 08/31/18 08/31/18 09/01/18 1515:00 23:00 07:00 IntakeIntake Total 736.9 ml 1091.2 ml 1132.7 ml OutputOutput Total 2815 ml 925 ml 460 ml BalanceBalance -2078.1 ml 166.2 ml 672.7 ml Exam Review of Systems: CONSTITUTIONAL: No fevers, chills. PULMONARY: intubated CARDIOVASCULAR: No chest pain/palpitations GASTROINTESTINAL: No nausea/vomiting. GENITOURINARY: No hematuria/dysuria. MUSCULOSKELETAL: No myagias/arthalgias. PSYCHIATRIC: The patient denies depression. NEUROLOGIC: No weakness Constitutional: other (sedated) Psych: no complaints Head: normocephalic ENMT: mucosa pink and moist Neck: supple, jvd (9 cm water) Respiratory: diminished breath sounds (at bases/B) Cardiovascular: regular rate and rhythm Gastrointestinal: soft, non-tender Musculoskeletal: muscle tone (normal) Extremities: edema (tremaine) Medications Medications Current Medications Sodium Chloride 1,000 ml @ 80 mls/hr [id number] IV Last administered on 09/01/18 05:09; Admin Dose 80 MLS/HR; Start 08/29/18 at 21:57 Albuterol (Ventolin Hfa) 4 puff Q2H RESP THERAPY PRN INH SHORTNESS OF BREATH Last administered on 09/01/18 05:32; Admin Dose 4 PUFF; Start 08/29/18 at 22:00 Ipratropium [place] (Atrovent Hfa) 4 puff Q2H RESP THERAPY PRN INH SHORTNESS OF BREATH; Start 08/29/18 at 22:00 Acetaminophen (Tylenol Liquid) 650 mg Q6H PRN NGT PAIN LEVEL 1-3 OR FEVER; Start 08/29/18 at 22:00 Pantoprazole (Protonix Iv) 40 mg DAILY@06 IV Last administered on 09/01/18 06:23; Admin Dose 40 MG; Start 08/30/18 at 06:00 Insulin Aspart (Novolog Insulin Pen) NOVOLOG *MILD* ALGORI... Q4 SC Last administered on 08/30/18at 08:13; Admin Dose 1 UNIT; Start 08/30/18 at 01:00 Levothyroxine Sodium (Synthroid Iv) 88 mcg DAILY@0700 IV Last administered on 09/01/18 06:23; Admin Dose 88 MCG; Start 08/30/18 at 07:00 Miscellaneous Information 1 ea NOTE XX ; Start 08/29/18 at 23:30 Glucose (Glutose) 15 gm Q15M PRN PO DECREASED GLUCOSE; Start 08/29/18 at 23:30 Glucose (Glutose) 22.5 gm Q15M PRN PO DECREASED GLUCOSE; Start 08/29/18 at 23:30 Dextrose (D50w Syringe) 25 ml Q15M PRN IV DECREASED GLUCOSE; Start 08/29/18 at 23:30 Dextrose (D50w Syringe) 50 ml Q15M PRN IV DECREASED GLUCOSE; Start 08/29/18 at 23:30 Glucagon (Glucagen) 1 mg Q15M PRN IM DECREASED GLUCOSE; Start 08/29/18 at 23:30 Glucose (Glutose) 15 gm Q15M PRN BUCCAL DECREASED GLUCOSE; Start 08/29/18 at 23:30 Fentanyl 100 ml @ 0.1 mls/hr TITRATE IV Last administered on 08/30/18at 02:16; Admin Dose 0.2 MLS/HR; Start 08/30/18 at 02:00 Propofol 100 ml @ 1.44 mls/hr Q12H IV Last administered on 09/01/18at 04:39; Admin Dose 7.2 MLS/HR; Start 08/30/18 at 03:30 Aztreonam 2 gm/ Sodium Chloride 100 ml @ 100 mls/hr Q12H IVPB Last administered on 09/01/18at 04:39; Admin Dose 100 MLS/HR; Start 08/30/18 at 05:00 Vancomycin HCl (Vanco Iv Per Pharmacy) VANCOMYCIN PER PHARMACY PER PROTOCOL XX ; Start 08/30/18 at 04:30 Vancomycin/Sodium Chloride 250 ml @ 125 mls/hr Q24H IVPB Last administered on 08/31/18at 20:51; Admin Dose 125 MLS/HR; Start 08/30/18 at 20:00 Enoxaparin Sodium (Lovenox) 40 mg DAILY SC Last administered on 09/01/18at 08:46; Admin Dose 40 MG; Start 08/30/18 at 04:45 Guaifenesin/ Dextromethorphan (Robitussin Dm Liquid Cup) 5 ml Q4H PRN PO cough; Start 08/30/18 at 13:00 Norepinephrine 250 ml @ 1.875 mls/ hr TITRATE IV Last administered on 09/01/18at 00:57; Admin Dose 1.875 MLS/HR; Start 09/01/18 at 00:00 Phenylephrine HCl 250 ml @ 75 mls/hr TITRATE IV Last administered on 09/01/18at 09:02; Admin Dose 75 MLS/HR; Start 09/01/18 at 01:30 Miscellaneous Information (*Rx Drug Level Order Reminder*) VANCOMYCIN TROUGH 09/01 AT 1900 ONCE ONCE XX ; Start 09/01/18 at 19:00; Stop 09/01/18 at 19:01 DANIELA FERRERA Sep 01, 2018 12:38
--- NOTE | 2018-09-01 12:57 | NUR ---
MELINA NOTES CALLED [facility] SPOKE TO HELEN [facility]MERS, ALL CLINICAL RECORDS FAXED/ RECEIVED , AUTH TODAY . STILL UNSTABLE FOR TRANSFER IGNACIO [place] X [phone]
[2018-09-01] MEDS: FENTAnyl (DRIP) 1000 mcg/100mL 100 ML IV SCH (19:45)
--- NOTE | 2018-09-01 20:07 | NUR ---
VANCOMYCIN PER RX Current ABXs: VANCOMYCIN, AZACTAM Allergies: PCN Levels/Significant Labs: 09/01 VANC TR = 6.6 Comments/Plan: CHANGE VANCO TO 750 MG IV Q12H.
[2018-09-01] MEDS: VANCOMYCIN 750 MG (PMX) 250 ML IVPB SCH (20:11)
--- NOTE | 2018-09-01 20:19 | NUR ---
vanco level 6.6 per RX will give the same dose now , and will change to q 12 hr.
[2018-09-02] VITALS (101 sets, daily range): BP systolic 77–134; BP diastolic 54–82; PULSE 47–77; RESP 0–30
[2018-09-02] MEDS: INSULIN ASPART [NOVOLOG] 3 ML PEN SC SCH ×6 (01:00→20:22)
[2018-09-02] MEDS: PROPOFOL 100 ML IV SCH (03:55)
[2018-09-02] MEDS: AZTREONAM 2 GM in SOD CHLORIDE 0.9% 100 ML IVPB SCH ×2 (04:58→17:43)
[2018-09-02] MEDS: PANTOPRAZOLE 40 MG INJ IV SCH (05:04)
[2018-09-02] MEDS: LEVOTHYROXINE 100 MCG VIAL IV SCH (06:00)
--- NOTE | 2018-09-02 06:24 | NUR ---
EOSS PATIENT ON MECHANICAL VENT, ON 80% FIO2 , SATURATING 94%, TOLERATING TUBE FEEDS, BLOOD SUGAR MONITORED BOTH WITHIN RANGE. SUCTIONED PRN. WILL ENDORSED ACCORDINGLY.
[2018-09-02] MEDS: VANCOMYCIN 750 MG (PMX) 250 ML IVPB SCH ×2 (08:30→20:08)
[2018-09-02] MEDS: ENOXAPARIN 40 MG/0.4 ML SYG SC SCH (08:40)
[2018-09-02] MEDS: PHENYLephrine 20MG IN 250 ML 250 ML IV SCH ×2 (08:43→20:07)
--- NOTE | 2018-09-02 09:49 | CONS ---
Date/Time of Note Date/Time of Note DATE: 09/02/18 TIME: 09:45 Consult Date/Type/Reason Admit Date/Time Aug 29, 2018 at 22:04 Initial Consult Date 08/30/18 Type of Consultation: ICU Requesting Provider: MARYLIN SERVIN MD Subjective Continues vasopressors FiO2 at 80% with a PEEP of 10. Tube feeding as tolerated. Objective Vital Signs Date Temp Pulse Resp B/P (MAP) Pulse Ox O2 O2 Flow FiO2 Time Delivery Rate 09/02/18 60 08:00 09/02/18 20 111/68 94 Mechanical 06:00 (82) Ventilator 09/02/18 80 05:18 09/02/18 98.5 04:00 08/29/18 10 19:25 Intake and Output 09/01/18 09/01/18 09/02/18 1515:00 23:00 07:00 IntakeIntake Total 1296.40 ml 1373.32 ml 1044.76 ml OutputOutput Total 755 ml 435 ml 240 ml BalanceBalance 541.40 ml 938.32 ml 804.76 ml Exam GENERAL: Chronically ill-appearing lady orally intubated on mechanical venti lation VITAL SIGNS: per chart NECK: Supple. No JVD or lymphadenopathy. CARDIAC EXAM: S1, S2. No added sounds or murmurs. CHEST: Diminished air entry bilaterally ABDOMEN: Soft, nontender. No guarding or rebound. EXTREMITIES: No cyanosis, clubbing or edema. NEUROLOGIC: Generalized weakness. No focal deficits. Results/Medications Result Diagram: 09/02/18 0420 09/02/18 042 Results 24 hrs Chest x-ray demonstrating right lower lobe infiltrate versus effusion. Improved aeration in left lung. Laboratory Tests Test 09/01/18 12:37 09/01/18 17:07 09/01/18 19:32 09/01/18 20:06 Bedside Glucose 73 80 88 Vancomycin Level 6.6 L Trough Test 09/02/18 01:03 09/02/18 04:20 09/02/18 04:57 09/02/18 07:00 Bedside Glucose 107 98 White Blood 8.6 # Count Red Blood Count 3.31 L Hemoglobin 10.8 L Hematocrit 34.4 L Mean Corpuscular 103.9 H Volume Mean Corpuscular 32.6 Hemoglobin Mean Corpuscular 31.4 L Hemoglobin Mony nt Red Cell 15.8 H Distribution Width Platelet Count 177 # Mean Platelet 9.9 Volume Immature 3.000 H Granulocytes % Neutrophils % 80.5 H Lymphocytes % 11.1 L Monocytes % 3.6 Eosinophils % 1.6 Basophils % 0.2 Nucleated Red 0.0 Blood Cells % Immature 0.260 H Granulocytes # Neutrophils # 7.0 Lymphocytes # 1.0 Monocytes # 0.3 Eosinophils # 0.1 Basophils # 0.0 Nucleated Red 0.0 Blood Cells # Sodium Level 145 H Potassium Level 3.7 Chloride Level 107 Carbon Dioxide 33 H Level Anion Gap 5 Blood Urea 17 Nitrogen Creatinine 0.48 Est Glomerular Filtrat Rate mL/min Glucose Level 116 Calcium Level 7.7 L Total Bilirubin 0.1 L Direct Bilirubin 0.00 Indirect 0.1 Bilirubin Aspartate Amino 194 H Transf (AST/SGOT ) Alanine 603 H Aminotransferase (ALT/SGPT) Alkaline 93 Phosphatase Total Protein 5.3 L Albumin 2.6 L Globulin 2.70 Albumin/Globulin 0.96 Ratio Blood Gas Blood arterial Specimen Source Arterial Blood 09/01/2018 11:03:0 Date Drawn 0 AM Arterial Blood 7.403 pH (Temp corrected) Arterial Blood 35.3 pCO2 (Temp correct) Arterial Blood 55.7 L pO2 (Temp corrected) Arterial Blood 21.5 L HCO3 Arterial Blood -2.8 Base Excess Arterial Blood 87.9 L Oxygen Saturatio n Yordan Test ACCEPTAB Arterial Blood Left Radial Gas Puncture Site Arterial 0.1 Blood Carboxyhem oglobin Arterial Blood 0.2 Methemoglobin Blood Gas A-a O2 282.7 H Differential Oxyhemoglobin 87.6 L Percent Blood Gas 37.0 Temperature Blood Gas Actual 40 Respiration Rate Blood Gas MASK - SIMPLE Modality FiO2 53.0 Blood Gas ALIYAH RT Notified Whom Blood Gas 09/01/2018 11:19:0 Notified Time 0 AM Test 09/02/18 07:15 09/02/18 08:36 Blood Gas Blood arterial Specimen Source Arterial Blood 09/02/2018 7:28:00 Date Drawn AM Arterial Blood 7.377 pH (Temp corrected) Arterial Blood 45.9 H pCO2 (Temp correct) Arterial Blood 75.3 L pO2 (Temp corrected) Arterial Blood 26.4 H HCO3 Arterial Blood 0.8 Base Excess Arterial Blood 94.3 L Oxygen Saturatio n Yordan Test ACCEPTAB Arterial Blood Right Radial Gas Puncture Site Arterial 0.2 Blood Carboxyhem oglobin Arterial Blood 0.1 Methemoglobin Blood Gas A-a O2 446.9 H Differential Oxyhemoglobin 94.0 Percent Blood Gas 37.0 Temperature Blood Gas 14.0 Respiration Rate Blood Gas Actual 14 Respiration Rate Blood Gas VENT - AC Modality FiO2 80.0 Blood Gas Tidal 450.0 Volume Blood Gas Low 10.0 PEEP Setting Blood Gas TM Notified Whom Blood Gas 09/02/2018 8:24:00 Notified Time AM Bedside Glucose 107 Medications Current Medications Sodium Chloride 1,000 ml @ 80 mls/hr [id number] IV Last administered on 09/01/18 18:52; Admin Dose 80 MLS/HR; Start 08/29/18 at 21:57 Albuterol (Ventolin Hfa) 4 puff Q2H RESP THERAPY PRN INH SHORTNESS OF BREATH Last administered on 09/01/18 05:32; Admin Dose 4 PUFF; Start 08/29/18 at 22:00 Ipratropium [place] (Atrovent Hfa) 4 puff Q2H RESP THERAPY PRN INH SHORTNESS OF BREATH; Start 08/29/18 at 22:00 Acetaminophen (Tylenol Liquid) 650 mg Q6H PRN NGT PAIN LEVEL 1-3 OR FEVER; S tart 08/29/18 at 22:00 Pantoprazole (Protonix Iv) 40 mg DAILY@06 IV Last administered on 09/02/18 0 5:04; Admin Dose 40 MG; Start 08/30/18 at 06:00 Insulin Aspart (Novolog Insulin Pen) NOVOLOG *MILD* ALGORI... Q4 SC Last administered on 08/30/18at 08:13; Admin Dose 1 UNIT; Start 08/30/18 at 01:00 Levothyroxine Sodium (Synthroid Iv) 88 mcg DAILY@0700 IV Last administered on 09/02/18 06:00; Admin Dose 88 MCG; Start 08/30/18 at 07:00 Miscellaneous Information 1 ea NOTE XX ; Start 08/29/18 at 23:30 Glucose (Glutose) 15 gm Q15M PRN PO DECREASED GLUCOSE; Start 08/29/18 at 23:30 Glucose (Glutose) 22.5 gm Q15M PRN PO DECREASED GLUCOSE; Start 08/29/18 at 23:30 Dextrose (D50w Syringe) 25 ml Q15M PRN IV DECREASED GLUCOSE; Start 08/29/18 at 23:30 Dextrose (D50w Syringe) 50 ml Q15M PRN IV DECREASED GLUCOSE; Start 08/29/18 at 23:30 Glucagon (Glucagen) 1 mg Q15M PRN IM DECREASED GLUCOSE; Start 08/29/18 at 23:30 Glucose (Glutose) 15 gm Q15M PRN BUCCAL DECREASED GLUCOSE; Start 08/29/18 at 23:30 Fentanyl 100 ml @ 0.1 mls/hr TITRATE IV Last administered on 09/01/18 19:45; Admin Dose 2.5 MLS/HR; Start 08/30/18 at 02:00 Propofol 100 ml @ 1.44 mls/hr Q12H IV Last administered on 09/02/18 03:55; Admin Dose 8.64 MLS/HR; Start 08/30/18 at 03:30 Aztreonam 2 gm/ Sodium Chloride 100 ml @ 100 mls/hr Q12H IVPB Last administered on 09/02/18 04:58; Admin Dose 100 MLS/HR; Start 08/30/18 at 05:00 Vancomycin HCl (Vanco Iv Per Pharmacy) VANCOMYCIN PER PHARMACY PER PROTOCOL XX ; Start 08/30/18 at 04:30 Enoxaparin Sodium (Lovenox) 40 mg DAILY SC Last administered on 09/02/18 08:40; Admin Dose 40 MG; Start 08/30/18 at 04:45 Guaifenesin/ Dextromethorphan (Robitussin Dm Liquid Cup) 5 ml Q4H PRN PO cough; Start 08/30/18 at 13:00 Norepinephrine 250 ml @ 1.875 mls/ hr TITRATE IV Last administered on 09/01/18 00:57; Admin Dose 1.875 MLS/HR; Start 09/01/18 at 00:00 Phenylephrine HCl 250 ml @ 75 mls/hr TITRATE IV Last administered on 09/02/18 08:43; Admin Dose 30 MLS/HR; Start 09/01/18 at 01:30 Vancomycin/Sodium Chloride 250 ml @ 125 mls/hr Q12H IVPB Last administered on 09/02/18 08:30; Admin Dose 125 MLS/HR; Start 09/02/18 at 08:00 Midazolam HCl 50 ml @ 1 mls/hr TITRATE IV ; Start 09/02/18 at 09:30 Assessment/Plan Chief Complaint/Hosp Course IMP: 1. Acute on chronic hypercapnic and hypoxemic resp failure--appears to be possibly due to a combination of a RLL and possibly ADHF--in a patient with COPD 2. Severe Ischemic Hepatopathy--likely due to severe pre-renal state vs. cardiorenal 3. TERRA--likely pre-renal 4. Septic shock 5. Post-hypercapnic metabolic alkalosis 6. Hypothyroidism RECS: 1. Vent support--> continue mechanical ventilation with a PEEP of 10. Decrease FiO2 as tolerated, may require right thoracentesis. CT chest when stable. 2. IV abx 3. Resp GS//Cx and BC x2 4. Aspiration precautions 5. Nasogastric tube feeding as tolerated 6. Continue vasopressors 7. Transition from propofol to Versed for improved hemodynamic monitoring. Critical care time 40 minutes Not stable for transfer to [facility] REBA CHAIDEZ MD, FCCP Sep 02, 2018 09:49
[2018-09-02] MEDS: MIDAZOLAM (DRIP) 50 mg/50 mL 50 ML IV SCH ×2 (09:56→17:38)
--- NOTE | 2018-09-02 10:05 | CONS ---
Date/Time of Note Date/Time of Note DATE: 09/02/18 TIME: 10:03 Assessment/Plan Assessment/Plan Hospital Course IMPRESSION 1. Hypotension/shock, improved off of pressors at this time.-Back on pressors. EF 55% by echo this admit. Neg trop x 3 2. Respiratory failure status post intubation. 3. Chronic obstructive pulmonary disease. 4. Lactic acidosis. 5. Hypothyroidism. 6. Increased liver function tests. 7. Hypotension-on yobani Recc: -ICU -wean vent as possible -continue abx's and f/u cx data -wean pressors as tolerated Result Diagram: 09/02/18 0420 09/02/18 0420 Results 24hrs Laboratory Tests Test 09/01/18 12:37 09/01/18 17:07 09/01/18 19:32 09/01/18 20:06 Bedside Glucose 73 80 88 Vancomycin Level 6.6 L Trough Test 09/02/18 01:03 09/02/18 04:20 09/02/18 04:57 09/02/18 07:00 Bedside Glucose 107 98 White Blood 8.6 # Count Red Blood Count 3.31 L Hemoglobin 10.8 L Hematocrit 34.4 L Mean Corpuscular 103.9 H Volume Mean Corpuscular 32.6 Hemoglobin Mean Corpuscular 31.4 L Hemoglobin Mony nt Red Cell 15.8 H Distribution Width Platelet Count 177 # Mean Platelet 9.9 Volume Immature 3.000 H Granulocytes % Neutrophils % 80.5 H Lymphocytes % 11.1 L Monocytes % 3.6 Eosinophils % 1.6 Basophils % 0.2 Nucleated Red 0.0 Blood Cells % Immature 0.260 H Granulocytes # Neutrophils # 7.0 Lymphocytes # 1.0 Monocytes # 0.3 Eosinophils # 0.1 Basophils # 0.0 Nucleated Red 0.0 Blood Cells # Sodium Level 145 H Potassium Level 3.7 Chloride Level 107 Carbon Dioxide 33 H Level Anion Gap 5 Blood Urea 17 Nitrogen Creatinine 0.48 Est Glomerular Filtrat Rate mL/min Glucose Level 116 Calcium Level 7.7 L Total Bilirubin 0.1 L Direct Bilirubin 0.00 Indirect 0.1 Bilirubin Aspartate Amino 194 H Transf (AST/SGOT ) Alanine 603 H Aminotransferase (ALT/SGPT) Alkaline 93 Phosphatase Total Protein 5.3 L Albumin 2.6 L Globulin 2.70 Albumin/Globulin 0.96 Ratio Blood Gas Blood arterial Specimen Source Arterial Blood 09/01/2018 11:03:0 Date Drawn 0 AM Arterial Blood 7.403 pH (Temp corrected) Arterial Blood 35.3 pCO2 (Temp correct) Arterial Blood 55.7 L pO2 (Temp corrected) Arterial Blood 21.5 L HCO3 Arterial Blood -2.8 Base Excess Arterial Blood 87.9 L Oxygen Saturatio n Yordan Test ACCEPTAB Arterial Blood Left Radial Gas Puncture Site Arterial 0.1 Blood Carboxyhem oglobin Arterial Blood 0.2 Methemoglobin Blood Gas A-a O2 282.7 H Differential Oxyhemoglobin 87.6 L Percent Blood Gas 37.0 Temperature Blood Gas Actual 40 Respiration Rate Blood Gas MASK - SIMPLE Modality FiO2 53.0 Blood Gas ALIYAH RT Notified Whom Blood Gas 09/01/2018 11:19:0 Notified Time 0 AM Test 09/02/18 07:15 09/02/18 08:36 Blood Gas Blood arterial Specimen Source Arterial Blood 09/02/2018 7:28:00 Date Drawn AM Arterial Blood 7.377 pH (Temp corrected) Arterial Blood 45.9 H pCO2 (Temp correct) Arterial Blood 75.3 L pO2 (Temp corrected) Arterial Blood 26.4 H HCO3 Arterial Blood 0.8 Base Excess Arterial Blood 94.3 L Oxygen Saturatio n Yordan Test ACCEPTAB Arterial Blood Right Radial Gas Puncture Site Arterial 0.2 Blood Carboxyhem oglobin Arterial Blood 0.1 Methemoglobin Blood Gas A-a O2 446.9 H Differential Oxyhemoglobin 94.0 Percent Blood Gas 37.0 Temperature Blood Gas 14.0 Respiration Rate Blood Gas Actual 14 Respiration Rate Blood Gas VENT - AC Modality FiO2 80.0 Blood Gas Tidal 450.0 Volume Blood Gas Low 10.0 PEEP Setting Blood Gas TM Notified Whom Blood Gas 09/02/2018 8:24:00 Notified Time AM Bedside Glucose 107 Consultation Date/Type/Reason Admit Date/Time Aug 29, 2018 at 22:04 Initial Consult Date 08/30/18 Type of Consult cardiology Reason for Consultation hypotension Requesting Provider: MARYLIN SERVIN MD Exam/Review of Systems Vital Signs Vitals Vital Signs Date Temp Pulse Resp B/P (MAP) Pulse Ox O2 O2 Flow FiO2 Time Delivery Rate 09/02/18 60 08:00 09/02/18 20 111/68 94 Mechanical 06:00 (82) Ventilator 09/02/18 80 05:18 09/02/18 98.5 04:00 08/29/18 10 19:25 Intake and Output 09/01/18 09/01/18 09/02/18 1414:59 22:59 06:59 IntakeIntake Total 1301.02 ml 1381.00 ml 1188.16 ml OutputOutput Total 745 ml 470 ml 290 ml BalanceBalance 556.02 ml 911.00 ml 898.16 ml Exam Review of Systems: CONSTITUTIONAL: No fevers, chills. PULMONARY: intubated CARDIOVASCULAR: No chest pain/palpitations GASTROINTESTINAL: No nausea/vomiting. GENITOURINARY: No hematuria/dysuria. MUSCULOSKELETAL: No myagias/arthalgias. PSYCHIATRIC: The patient denies depression. NEUROLOGIC: No weakness Constitutional: alert Psych: no complaints Head: normocephalic ENMT: mucosa pink and moist Neck: supple, jvd (9 cm water) Respiratory: diminished breath sounds (at bases/B) Cardiovascular: regular rate and rhythm Gastrointestinal: soft, non-tender Musculoskeletal: muscle tone (normal) Extremities: edema (none) Neurological: other (No focal deficits) Medications Medications Current Medications Sodium Chloride 1,000 ml @ 80 mls/hr [id number] IV Last administered on 09/01/18at 18:52; Admin Dose 80 MLS/HR; Start 08/29/18 at 21:57 Albuterol (Ventolin Hfa) 4 puff Q2H RESP THERAPY PRN INH SHORTNESS OF BREATH Last administered on 09/01/18at 05:32; Admin Dose 4 PUFF; Start 08/29/18 at 22:00 Ipratropium [place] (Atrovent Hfa) 4 puff Q2H RESP THERAPY PRN INH SHORTNESS OF BREATH; Start 08/29/18 at 22:00 Acetaminophen (Tylenol Liquid) 650 mg Q6H PRN NGT PAIN LEVEL 1-3 OR FEVER; Start 08/29/18 at 22:00 Pantoprazole (Protonix Iv) 40 mg DAILY@06 IV Last administered on 09/02/18at 05:04; Admin Dose 40 MG; Start 08/30/18 at 06:00 Insulin Aspart (Novolog Insulin Pen) NOVOLOG *MILD* ALGORI... Q4 SC Last administered on 08/30/18at 08:13; Admin Dose 1 UNIT; Start 08/30/18 at 01:00 Levothyroxine Sodium (Synthroid Iv) 88 mcg DAILY@0700 IV Last administered on 09/02/18 06:00; Admin Dose 88 MCG; Start 08/30/18 at 07:00 Miscellaneous Information 1 ea NOTE XX ; Start 08/29/18 at 23:30 Glucose (Glutose) 15 gm Q15M PRN PO DECREASED GLUCOSE; Start 08/29/18 at 23:30 Glucose (Glutose) 22.5 gm Q15M PRN PO DECREASED GLUCOSE; Start 08/29/18 at 23:30 Dextrose (D50w Syringe) 25 ml Q15M PRN IV DECREASED GLUCOSE; Start 08/29/18 at 23:30 Dextrose (D50w Syringe) 50 ml Q15M PRN IV DECREASED GLUCOSE; Start 08/29/18 at 23:30 Glucagon (Glucagen) 1 mg Q15M PRN IM DECREASED GLUCOSE; Start 08/29/18 at 23:30 Glucose (Glutose) 15 gm Q15M PRN BUCCAL DECREASED GLUCOSE; Start 08/29/18 at 23:30 Fentanyl 100 ml @ 0.1 mls/hr TITRATE IV Last administered on 09/01/18 19:45; Admin Dose 2.5 MLS/HR; Start 08/30/18 at 02:00 Propofol 100 ml @ 1.44 mls/hr Q12H IV Last administered on 09/02/18 03:55; Admin Dose 8.64 MLS/HR; Start 08/30/18 at 03:30 Aztreonam 2 gm/ Sodium Chloride 100 ml @ 100 mls/hr Q12H IVPB Last administered on 09/02/18 04:58; Admin Dose 100 MLS/HR; Start 08/30/18 at 05:00 Vancomycin HCl (Vanco Iv Per Pharmacy) VANCOMYCIN PER PHARMACY PER PROTOCOL XX ; Start 08/30/18 at 04:30 Enoxaparin Sodium (Lovenox) 40 mg DAILY SC Last administered on 09/02/18 08:40; Admin Dose 40 MG; Start 08/30/18 at 04:45 Guaifenesin/ Dextromethorphan (Robitussin Dm Liquid Cup) 5 ml Q4H PRN PO cough; Start 08/30/18 at 13:00 Norepinephrine 250 ml @ 1.875 mls/ hr TITRATE IV Last administered on 09/01/18at 00:57; Admin Dose 1.875 MLS/HR; Start 09/01/18 at 00:00 Phenylephrine HCl 250 ml @ 75 mls/hr TITRATE IV Last administered on 09/02/18at 08:43; Admin Dose 30 MLS/HR; Start 09/01/18 at 01:30 Vancomycin/Sodium Chloride 250 ml @ 125 mls/hr Q12H IVPB Last administered on 09/02/18at 08:30; Admin Dose 125 MLS/HR; Start 09/02/18 at 08:00 Midazolam HCl 50 ml @ 1 mls/hr TITRATE IV ; Start 09/02/18 at 09:30 DANIELA FERRERA Sep 02, 2018 10:05
--- NOTE | 2018-09-02 12:29 | NUR ---
NUTRITION NOTE: PATIENT NOT STABLE FOR TRANSFER TO [facility]. OGT FEEDING STARTED WITH FIBERSOURCE HN @ 30 ML/HR. CONSIDER INCREASE TO 50 ML/HR TO PROVIDE 1440 MITZI/ 65 GM. PROT/ 972 ML FREE WATER/ NA+ 58.8 MEQ. RECORDED TWENTYFOUR HOUR INTAKE/OUTPUT 3870/1505, IV NS @ 80 ML/HR. LABS SODIUM 145. IV NS MAY BE ADJUSTED PER MD. WATER FLUSHES MAY BE INCREASED TO 150 ML Q 4 HOURS OR PER MD.
[2018-09-02] MEDS: SOD CHLORIDE 0.9% 1,000 ML IV SCH (13:11)
--- NOTE | 2018-09-02 13:53 | PN ---
Date/Time of Note Date/Time of Note DATE: 09/02/18 TIME: 13:45 Assessment/Plan VTE Prophylaxis Risk score (from [facility])>0 risk: 10 SCD applied (from [facility]): Yes Pharmacological prophylaxis: LMWH Assessment/Plan Hospital Course 1. Acute hypoxemic and hypercapnic on chronic respiratory failure secondary to pneumonia on COPD Continue vent support, patient still on aggressive vent settings 2. Septic shock secondary to pneumonia Continue vancomycin and aztreonam Pressors as needed 3. Hypothyroidism Continue home meds 4. Essential hypertension Hold home meds secondary to sepsis 5. History of osteoporosis No acute issues 6. Severe Ischemic Hepatopathy likely due to shock liver versus cardiorenal- improving Monitor Prophylaxis: Lovenox DC planning: Anticipate DC to [place] once FiO2 at 50% Result Diagram: 09/02/1841909/02/18419 Results 24hrs Laboratory Tests Test 09/01/18 17:07 09/01/18 19:32 09/01/18 20:06 09/02/18 01:03 Bedside Glucose 80 88 107 Vancomycin Level 6.6 L Trough Test 09/02/18 04:20 09/02/18 04:57 09/02/18 07:15 09/02/18 08:36 White Blood Count 8.6 # Red Blood Count 3.31 L Hemoglobin 10.8 L Hematocrit 34.4 L Mean Corpuscular 103.9 H Volume Mean Corpuscular 32.6 Hemoglobin Mean Corpuscular 31.4 L Hemoglobin Concent Red Cell 15.8 H Distribution Width Platelet Count 177 # Mean Platelet 9.9 Volume Immature 3.000 H Granulocytes % Neutrophils % 80.5 H Lymphocytes % 11.1 L Monocytes % 3.6 Eosinophils % 1.6 Basophils % 0.2 Nucleated Red 0.0 Blood Cells % Immature 0.260 H Granulocytes # Neutrophils # 7.0 Lymphocytes # 1.0 Monocytes # 0.3 Eosinophils # 0.1 Basophils # 0.0 Nucleated Red 0.0 Blood Cells # Sodium Level 145 H Potassium Level 3.7 Chloride Level 107 Carbon Dioxide 33 H Level Anion Gap 5 Blood Urea 17 Nitrogen Creatinine 0.48 Est Glomerular Filtrat Rate mL/min Glucose Level 116 Calcium Level 7.7 L Total Bilirubin 0.1 L Direct Bilirubin 0.00 Indirect Bilirubin 0.1 Aspartate Amino 194 H Transf (AST/SGOT) Alanine 603 H Aminotransferase ( ALT/SGPT) Alkaline 93 Phosphatase Total Protein 5.3 L Albumin 2.6 L Globulin 2.70 Albumin/Globulin 0.96 Ratio Bedside Glucose 98 107 Blood Gas Specimen Blood arterial Source Arterial Blood 09/02/2018 7:28:00 Date Drawn AM Arterial Blood pH 7.377 (Temp corrected) Arterial Blood 45.9 H pCO2 (Temp correct) Arterial Blood pO2 75.3 L (Temp corrected) Arterial Blood 26.4 H HCO3 Arterial Blood 0.8 Base Excess Arterial Blood 94.3 L Oxygen Saturation Yordan Test ACCEPTAB Arterial Blood Gas Right Radial Puncture Site Arterial 0.2 Blood Carboxyhemog lobin Arterial Blood 0.1 Methemoglobin Blood Gas A-a O2 446.9 H Differential Oxyhemoglobin 94.0 Percent Blood Gas 37.0 Temperature Blood Gas 14.0 Respiration Rate Blood Gas Actual 14 Respiration Rate Blood Gas Modality VENT - AC FiO2 80.0 Blood Gas Tidal 450.0 Volume Blood Gas Low PEEP 10.0 Setting Blood Gas Notified TM Whom Blood Gas Notified 09/02/2018 8:24:00 Time AM Test 09/02/18 13:12 Bedside Glucose 101 Subjective 24 Hr Interval Summary Subjective hx not possible: pt non-verbal Exam/Review of Systems Vital Signs Vitals Vital Signs Date Temp Pulse Resp B/P (MAP) Pulse Ox O2 O2 Flow FiO2 Time Delivery Rate 09/02/18 62 22 128/76 98 Mechanical 13:00 (93) Ventilator 09/02/18 98.3 12:00 09/02/18 80 08:00 08/29/18 10 19:25 Intake and Output 09/01/18 09/01/18 09/02/18 1515:00 23:00 07:00 IntakeIntake Total 1296.40 ml 1373.32 ml 1187.90 ml OutputOutput Total 755 ml 435 ml 300 ml BalanceBalance 541.40 ml 938.32 ml 887.90 ml Exam Constitutional: non-verbal Respiratory: clear to auscultation Cardiovascular: regular rate and rhythm Gastrointestinal: soft; No distended Musculoskeletal: nl extremities to inspection Medications Medications Current Medications Sodium Chloride 1,000 ml @ 80 mls/hr [id number] IV Last administered on 09/02/18at 13:11; Admin Dose 80 MLS/HR; Start 08/29/18 at 21:57 Albuterol (Ventolin Hfa) 4 puff Q2H RESP THERAPY PRN INH SHORTNESS OF BREATH Last administered on 09/01/18 05:32; Admin Dose 4 PUFF; Start 08/29/18 at 22:00 Ipratropium [place] (Atrovent Hfa) 4 puff Q2H RESP THERAPY PRN INH SHORTNESS OF BREATH; Start 08/29/18 at 22:00 Acetaminophen (Tylenol Liquid) 650 mg Q6H PRN NGT PAIN LEVEL 1-3 OR FEVER; Start 08/29/18 at 22:00 Insulin Aspart (Novolog Insulin Pen) NOVOLOG *MILD* ALGORI... Q4 SC Last administered on 08/30/18at 08:13; Admin Dose 1 UNIT; Start 08/30/18 at 01:00 Levothyroxine Sodium (Synthroid Iv) 88 mcg DAILY@0700 IV Last administered on 09/02/18 06:00; Admin Dose 88 MCG; Start 08/30/18 at 07:00 Miscellaneous Information 1 ea NOTE XX ; Start 08/29/18 at 23:30 Glucose (Glutose) 15 gm Q15M PRN PO DECREASED GLUCOSE; Start 08/29/18 at 23:30 Glucose (Glutose) 22.5 gm Q15M PRN PO DECREASED GLUCOSE; Start 08/29/18 at 23:30 Dextrose (D50w Syringe) 25 ml Q15M PRN IV DECREASED GLUCOSE; Start 08/29/18 at 23:30 Dextrose (D50w Syringe) 50 ml Q15M PRN IV DECREASED GLUCOSE; Start 08/29/18 at 23:30 Glucagon (Glucagen) 1 mg Q15M PRN IM DECREASED GLUCOSE; Start 08/29/18 at 23:30 Glucose (Glutose) 15 gm Q15M PRN BUCCAL DECREASED GLUCOSE; Start 08/29/18 at 23:30 Fentanyl 100 ml @ 0.1 mls/hr TITRATE IV Last administered on 09/01/18 19:45; Admin Dose 2.5 MLS/HR; Start 08/30/18 at 02:00 Propofol 100 ml @ 1.44 mls/hr Q12H IV Last administered on 09/02/18 03:55; Admin Dose 8.64 MLS/HR; Start 08/30/18 at 03:30 Aztreonam 2 gm/ Sodium Chloride 100 ml @ 100 mls/hr Q12H IVPB Last administered on 09/02/18 04:58; Admin Dose 100 MLS/HR; Start 08/30/18 at 05:00 Vancomycin HCl (Vanco Iv Per Pharmacy) VANCOMYCIN PER PHARMACY PER PROTOCOL XX ; Start 08/30/18 at 04:30 Enoxaparin Sodium (Lovenox) 40 mg DAILY SC Last administered on 09/02/18 08:40; Admin Dose 40 MG; Start 08/30/18 at 04:45 Guaifenesin/ Dextromethorphan (Robitussin Dm Liquid Cup) 5 ml Q4H PRN PO cough; Start 08/30/18 at 13:00 Norepinephrine 250 ml @ 1.875 mls/ hr TITRATE IV Last administered on 09/01/18 00:57; Admin Dose 1.875 MLS/HR; Start 09/01/18 at 00:00 Phenylephrine HCl 250 ml @ 75 mls/hr TITRATE IV Last administered on 09/02/18 08:43; Admin Dose 30 MLS/HR; Start 09/01/18 at 01:30 Vancomycin/Sodium Chloride 250 ml @ 125 mls/hr Q12H IVPB Last administered on 09/02/18 08:30; Admin Dose 125 MLS/HR; Start 09/02/18 at 08:00 Midazolam HCl 50 ml @ 1 mls/hr TITRATE IV Last administered on 09/02/18 09:56; Admin Dose 1 MLS/HR; Start 09/02/18 at 09:30 Lansoprazole (Prevacid) 30 mg DAILY@06 GTB ; Start 09/03/18 at 06:00 ANA DIAMOND Sep 02, 2018 13:53
--- NOTE | 2018-09-02 16:05 | NUR ---
CM NOTES: THIS CM FAXED ALL MD NOTES TO [facility] [phone] (o) (f) [phone]. THIS CM ATTEMPTED TO CALL [facility] AND WAS ONHOLD FOR 45 MINUTES. WILL TRY AGAIN. SUZIE CARRIZALES LEAD CM [id number]
--- NOTE | 2018-09-02 18:54 | NUR ---
eoss pt stable on ventilator; changed propofol to versed this morning; versed started at 1mg/hr and titrated to 3 mg/hr d/t agitation. pt's fio2 weaned today from 80%-70% with sats >92%. no insulin given, blood sugars WNL. urine output adequate. afebrile. tube feedings tolerating well. central line dressing changed. all information endorsed to warehouse worker 2nd shift nurse.
--- NOTE | 2018-09-02 21:30 | NUR ---
MD KLEIN NOTIFIED PATIENT HR BETWEEN 45-55, THE DRIPS PATIENT IS ON, AND THAT PATIENT BP HAS BEEN WITHIN NORMAL LIMITS. MD KLEIN SAID TO MONITOR AND CALL HIM BACK IF HR GOES UNDER 40.
[2018-09-03] VITALS (103 sets, daily range): BP systolic 80–133; BP diastolic 46–83; PULSE 58–88; RESP 0–24
[2018-09-03] MEDS: INSULIN ASPART [NOVOLOG] 3 ML PEN SC SCH ×6 (01:00→21:00)
[2018-09-03] MEDS: SOD CHLORIDE 0.9% 1,000 ML IV SCH ×3 (04:46→21:22)
[2018-09-03] MEDS: AZTREONAM 2 GM in SOD CHLORIDE 0.9% 100 ML IVPB SCH ×2 (04:46→16:57)
[2018-09-03] MEDS: LANSOPRAZOLE 30 MG CAP GTB SCH (06:17)
[2018-09-03] MEDS: LEVOTHYROXINE 100 MCG VIAL IV SCH (06:17)
--- NOTE | 2018-09-03 08:00 | NUR ---
PT'S FI02 TODAY CHANGED FROM 70% TO 100% DUE TO PO2 54. NOTIFIED BY LAB AT 0743, NOTIFIED DR. BOSTON AT BEDSIDE.
[2018-09-03] MEDS: VANCOMYCIN 750 MG (PMX) 250 ML IVPB SCH ×2 (08:24→21:16)
[2018-09-03] MEDS: ENOXAPARIN 40 MG/0.4 ML SYG SC SCH (08:25)
--- NOTE | 2018-09-03 08:57 | CONS ---
Date/Time of Note Date/Time of Note DATE: 09/03/18 TIME: 08:54 Assessment/Plan Assessment/Plan Assessment/Plan Ventilator setting; AC of 20, tidal volume 500, PEEP of 10, 100% FiO2. Patient is currently on fentanyl 10 mics per hour, Versed 1 mg/h, phenylephrine drip 10 mics per minute. Chest x-ray showing bilateral pneumonia. More pronounced in right lower lobe. Assessment recommendations; 1. Patient admitted with severe bilateral lower lobe pneumonia leading to respiratory failure requiring intubation. 2. Persistent severe hypoxemia. 3. Shock liver with interval improvement. 4. Mild acute renal insufficiency with normalization of renal function. 5. Anemia and thrombocytopenia. 6. History of hypothyroidism. Continue current supportive care. Obtain follow-up chest x-ray 24 hours. Prognosis is guarded. 35 minutes of critical care time was spent evaluating the patient. Result Diagram: 09/03/18 0450 09/03/18 0450 Results 24hrs Laboratory Tests Test 09/02/18 13:12 09/02/18 16:51 09/02/18 20:11 09/03/18 00:56 Bedside Glucose 101 88 87 109 Test 09/03/18 04:21 09/03/18 04:50 09/03/18 07:00 Bedside Glucose 86 White Blood Count 7.9 Red Blood Count 3.28 L Hemoglobin 10.8 L Hematocrit 33.3 L Mean Corpuscular 101.5 H Volume Mean Corpuscular 32.9 Hemoglobin Mean Corpuscular 32.4 Hemoglobin Concent Red Cell 15.5 H Distribution Width Platelet Count 153 Mean Platelet 10.7 H Volume Immature 2.900 H Granulocytes % Neutrophils % 79.3 H Lymphocytes % 11.6 L Monocytes % 4.4 Eosinophils % 1.5 Basophils % 0.3 Nucleated Red 0.0 Blood Cells % Immature 0.230 H Granulocytes # Neutrophils # 6.2 Lymphocytes # 0.9 Monocytes # 0.4 Eosinophils # 0.1 Basophils # 0.0 Nucleated Red 0.0 Blood Cells # Sodium Level 141 Potassium Level 3.5 Chloride Level 108 Carbon Dioxide 31 Level Anion Gap 2 L Blood Urea 14 Nitrogen Creatinine 0.49 Est Glomerular Filtrat Rate mL/min Glucose Level 95 Calcium Level 7.8 L Total Bilirubin 0.2 Direct Bilirubin 0.00 Indirect Bilirubin 0.2 Aspartate Amino 87 H Transf (AST/SGOT) Alanine 405 H Aminotransferase ( ALT/SGPT) Alkaline 89 Phosphatase Total Protein 5.5 L Albumin 2.4 L Globulin 3.10 Albumin/Globulin 0.77 Ratio Blood Gas Specimen Blood arterial Source Arterial Blood 09/03/2018 7:12:07 Date Drawn AM Arterial Blood pH 7.448 (Temp corrected) Arterial Blood 41.6 pCO2 (Temp correct) Arterial Blood pO2 54.1 *L (Temp corrected) Arterial Blood 28.1 H HCO3 Arterial Blood 3.8 H Base Excess Arterial Blood 88.6 L Oxygen Saturation Yordan Test ACCEPTAB Arterial Blood Gas Right Radial Puncture Site Arterial 0.3 Blood Carboxyhemog lobin Arterial Blood 0.1 Methemoglobin Blood Gas A-a O2 400.3 H Differential Oxyhemoglobin 88.2 L Percent Blood Gas 37.0 Temperature Blood Gas 14.0 Respiration Rate Blood Gas Actual 18 Respiration Rate Blood Gas Modality VENT - AC FiO2 70.0 Blood Gas Tidal 500.0 Volume Blood Gas Low PEEP 10.0 Setting Blood Gas Critical RAJESH RN Value Read Back Blood Gas Notified TM Whom Blood Gas Notified 09/03/2018 7:43:55 Time AM Consultation Date/Type/Reason Admit Date/Time Aug 29, 2018 at 22:04 Initial Consult Date 08/30/18 Type of Consult Pulmonary/critical care Reason for Consultation Patient's condition remains critical. Remains profoundly hypoxemic requiring 100% FiO2. Also remains hypotensive requiring pressor support. General exam; elderly woman, orally intubated, sedated, currently in no di stress. Patient is arousable. HEENT exam; supple neck, no JVD. No lymphadenopathy. Midline trachea. No thyromegaly. Orally intubated. Patient has fair dentition. No neck masses. Chest exam; diminished breath sounds bilaterally at lung bases. Upper lobes are clear. S1-S2 audible, no murmurs. Regular rhythm. Abdomen exam; soft, no organomegaly. Bowel sounds audible. Extremity exam; trace edema. STATE COMPTROLLER exam; patient is awake and responsive. Mildly sedated. Requesting Provider: MARYLIN SERVIN MD Exam/Review of Systems Vital Signs Vitals Vital Signs Date Temp Pulse Resp B/P (MAP) Pulse Ox O2 O2 Flow FiO2 Time Delivery Rate 09/03/18 79 21 119/74 97 08:30 (89) 09/03/18 100 08:00 09/03/18 99.4 Mechanical 08:00 Ventilator Intake and Output 09/02/18 09/02/18 09/03/18 1515:00 23:00 07:00 IntakeIntake Total 1219.94 ml 1493.34 ml 1044.0 ml OutputOutput Total 285 ml 400 ml 290 ml BalanceBalance 934.94 ml 1093.34 ml 754.0 ml Medications Medications Current Medications Sodium Chloride 1,000 ml @ 80 mls/hr [id number] IV Last administered on 09/03/18at 04:46; Admin Dose 80 MLS/HR; Start 08/29/18 at 21:57 Albuterol (Ventolin Hfa) 4 puff Q2H RESP THERAPY PRN INH SHORTNESS OF BREATH Last administered on 09/01/18 05:32; Admin Dose 4 PUFF; Start 08/29/18 at 22:00 Ipratropium [place] (Atrovent Hfa) 4 puff Q2H RESP THERAPY PRN INH SHORTNESS OF BREATH; Start 08/29/18 at 22:00 Acetaminophen (Tylenol Liquid) 650 mg Q6H PRN NGT PAIN LEVEL 1-3 OR FEVER; Start 08/29/18 at 22:00 Insulin Aspart (Novolog Insulin Pen) NOVOLOG *MILD* ALGORI... Q4 SC Last administered on 08/30/18at 08:13; Admin Dose 1 UNIT; Start 08/30/18 at 01:00 Levothyroxine Sodium (Synthroid Iv) 88 mcg DAILY@0700 IV Last administered on 09/03/18 06:17; Admin Dose 88 MCG; Start 08/30/18 at 07:00 Miscellaneous Information 1 ea NOTE XX ; Start 08/29/18 at 23:30 Glucose (Glutose) 15 gm Q15M PRN PO DECREASED GLUCOSE; Start 08/29/18 at 23:30 Glucose (Glutose) 22.5 gm Q15M PRN PO DECREASED GLUCOSE; Start 08/29/18 at 23:30 Dextrose (D50w Syringe) 25 ml Q15M PRN IV DECREASED GLUCOSE; Start 08/29/18 at 23:30 Dextrose (D50w Syringe) 50 ml Q15M PRN IV DECREASED GLUCOSE; Start 08/29/18 at 23:30 Glucagon (Glucagen) 1 mg Q15M PRN IM DECREASED GLUCOSE; Start 08/29/18 at 23:30 Glucose (Glutose) 15 gm Q15M PRN BUCCAL DECREASED GLUCOSE; Start 08/29/18 at 23:30 Fentanyl 100 ml @ 0.1 mls/hr TITRATE IV Last administered on 09/01/18 19:45; Admin Dose 2.5 MLS/HR; Start 08/30/18 at 02:00 Propofol 100 ml @ 1.44 mls/hr Q12H IV Last administered on 09/02/18 03:55; Admin Dose 8.64 MLS/HR; Start 08/30/18 at 03:30 Aztreonam 2 gm/ Sodium Chloride 100 ml @ 100 mls/hr Q12H IVPB Last administered on 09/03/18 04:46; Admin Dose 100 MLS/HR; Start 08/30/18 at 05:00 Vancomycin HCl (Vanco Iv Per Pharmacy) VANCOMYCIN PER PHARMACY PER PROTOCOL XX ; Start 08/30/18 at 04:30 Enoxaparin Sodium (Lovenox) 40 mg DAILY SC Last administered on 09/03/18 08:25; Admin Dose 40 MG; Start 08/30/18 at 04:45 Guaifenesin/ Dextromethorphan (Robitussin Dm Liquid Cup) 5 ml Q4H PRN PO cough; Start 08/30/18 at 13:00 Norepinephrine 250 ml @ 1.875 mls/ hr TITRATE IV Last administered on 09/01/18 00:57; Admin Dose 1.875 MLS/HR; Start 09/01/18 at 00:00 Phenylephrine HCl 250 ml @ 75 mls/hr TITRATE IV Last administered on 09/02/18 20:07; Admin Dose 15 MLS/HR; Start 09/01/18 at 01:30 Vancomycin/Sodium Chloride 250 ml @ 125 mls/hr Q12H IVPB Last administered on 09/03/18 08:24; Admin Dose 125 MLS/HR; Start 09/02/18 at 08:00 Midazolam HCl 50 ml @ 1 mls/hr TITRATE IV Last administered on 09/02/18 17:38; Admin Dose 3 MLS/HR; Start 09/02/18 at 09:30 Lansoprazole (Prevacid) 30 mg DAILY@06 GTB Last administered on 09/03/18 06:17; Admin Dose 30 MG; Start 09/03/18 at 06:00 SHARON BOSTON Sep 03, 2018 08:57
[2018-09-03] MEDS ORDERED: MAGNESIUM SULFATE 1 GM/D5W 100 ML IVPB ONE ×2 (10:30→11:30)
--- NOTE | 2018-09-03 10:51 | CONS ---
Date/Time of Note Date/Time of Note DATE: 09/03/18 TIME: 10:49 Assessment/Plan Assessment/Plan Hospital Course IMPRESSION 1. Hypotension/shock, improved off of pressors at this time.-Back on pressors. EF 55% by echo this admit. Neg trop x 3 2. Respiratory failure status post intubation. 3. Chronic obstructive pulmonary disease. 4. Lactic acidosis. 5. Hypothyroidism. 6. Increased liver function tests. 7. Hypotension-on serge 8. SVT-overnight to 170-180 reguar-TSH suppressed by labs Recc: -ICU -wean vent as possible -continue abx's and f/u cx data -wean Serge as tolerated -check free t4 to assess curreny thyroid dtae in it's possible contribution to SVT patient had Result Diagram: 09/03/18 0450 09/03/18 0450 Results 24hrs Laboratory Tests Test 09/02/18 13:12 09/02/18 16:51 09/02/18 20:11 09/03/18 00:56 Bedside Glucose 101 88 87 109 Test 09/03/18 04:21 09/03/18 04:50 09/03/18 07:00 09/03/18 08:31 Bedside Glucose 86 96 White Blood Count 7.9 Red Blood Count 3.28 L Hemoglobin 10.8 L Hematocrit 33.3 L Mean Corpuscular 101.5 H Volume Mean Corpuscular 32.9 Hemoglobin Mean Corpuscular 32.4 Hemoglobin Concent Red Cell 15.5 H Distribution Width Platelet Count 153 Mean Platelet 10.7 H Volume Immature 2.900 H Granulocytes % Neutrophils % 79.3 H Lymphocytes % 11.6 L Monocytes % 4.4 Eosinophils % 1.5 Basophils % 0.3 Nucleated Red 0.0 Blood Cells % Immature 0.230 H Granulocytes # Neutrophils # 6.2 Lymphocytes # 0.9 Monocytes # 0.4 Eosinophils # 0.1 Basophils # 0.0 Nucleated Red 0.0 Blood Cells # Sodium Level 141 Potassium Level 3.5 Chloride Level 108 Carbon Dioxide 31 Level Anion Gap 2 L Blood Urea 14 Nitrogen Creatinine 0.49 Est Glomerular Filtrat Rate mL/min Glucose Level 95 Calcium Level 7.8 L Magnesium Level 1.7 Total Bilirubin 0.2 Direct Bilirubin 0.00 Indirect Bilirubin 0.2 Aspartate Amino 87 H Transf (AST/SGOT) Alanine 405 H Aminotransferase ( ALT/SGPT) Alkaline 89 Phosphatase Total Protein 5.5 L Albumin 2.4 L Globulin 3.10 Albumin/Globulin 0.77 Ratio Blood Gas Specimen Blood arterial Source Arterial Blood 09/03/2018 7:12:07 Date Drawn AM Arterial Blood pH 7.448 (Temp corrected) Arterial Blood 41.6 pCO2 (Temp correct) Arterial Blood pO2 54.1 *L (Temp corrected) Arterial Blood 28.1 H HCO3 Arterial Blood 3.8 H Base Excess Arterial Blood 88.6 L Oxygen Saturation Yordan Test ACCEPTAB Arterial Blood Gas Right Radial Puncture Site Arterial 0.3 Blood Carboxyhemog lobin Arterial Blood 0.1 Methemoglobin Blood Gas A-a O2 400.3 H Differential Oxyhemoglobin 88.2 L Percent Blood Gas 37.0 Temperature Blood Gas 14.0 Respiration Rate Blood Gas Actual 18 Respiration Rate Blood Gas Modality VENT - AC FiO2 70.0 Blood Gas Tidal 500.0 Volume Blood Gas Low PEEP 10.0 Setting Blood Gas Critical RAJESH RN Value Read Back Blood Gas Notified TM Whom Blood Gas Notified 09/03/2018 7:43:55 Time AM Consultation Date/Type/Reason Admit Date/Time Aug 29, 2018 at 22:04 Initial Consult Date 08/30/18 Type of Consult cardiology Reason for Consultation hypotension Requesting Provider: MARYLIN SERVIN MD Exam/Review of Systems Vital Signs Vitals Vital Signs Date Temp Pulse Resp B/P (MAP) Pulse Ox O2 O2 Flow FiO2 Time Delivery Rate 09/03/18 81 14 112/60 98 09:30 (77) 09/03/18 Mechanical 09:00 Ventilator 09/03/18 100 08:00 09/03/18 99.4 08:00 Intake and Output 09/02/18 09/02/18 09/03/18 1515:00 23:00 07:00 IntakeIntake Total 1219.94 ml 1493.34 ml 1044.0 ml OutputOutput Total 285 ml 400 ml 290 ml BalanceBalance 934.94 ml 1093.34 ml 754.0 ml Exam Review of Systems: CONSTITUTIONAL: No fevers, chills. PULMONARY: intubated CARDIOVASCULAR: No chest pain/palpitations GASTROINTESTINAL: No nausea/vomiting. GENITOURINARY: No hematuria/dysuria. MUSCULOSKELETAL: No myagias/arthalgias. PSYCHIATRIC: The patient denies depression. NEUROLOGIC: No weakness Constitutional: other (intubated, sedated) Head: normocephalic ENMT: mucosa pink and moist Neck: supple, jvd (9 cm water) Respiratory: diminished breath sounds (at bases/B) Cardiovascular: regular rate and rhythm Gastrointestinal: soft, non-tender Musculoskeletal: muscle tone (normal) Extremities: edema (none) Neurological: other (sedated) Medications Medications Current Medications Sodium Chloride 1,000 ml @ 80 mls/hr [id number] IV Last administered on 09/03/18 04:46; Admin Dose 80 MLS/HR; Start 08/29/18 at 21:57 Albuterol (Ventolin Hfa) 4 puff Q2H RESP THERAPY PRN INH SHORTNESS OF BREATH Last administered on 09/01/18 05:32; Admin Dose 4 PUFF; Start 08/29/18 at 22:00 Ipratropium [place] (Atrovent Hfa) 4 puff Q2H RESP THERAPY PRN INH SHORTNESS OF BREATH; Start 08/29/18 at 22:00 Acetaminophen (Tylenol Liquid) 650 mg Q6H PRN NGT PAIN LEVEL 1-3 OR FEVER; Start 08/29/18 at 22:00 Insulin Aspart (Novolog Insulin Pen) NOVOLOG *MILD* ALGORI... Q4 SC Last administered on 08/30/18at 08:13; Admin Dose 1 UNIT; Start 08/30/18 at 01:00 Levothyroxine Sodium (Synthroid Iv) 88 mcg DAILY@0700 IV Last administered on 09/03/18 06:17; Admin Dose 88 MCG; Start 08/30/18 at 07:00 Miscellaneous Information 1 ea NOTE XX ; Start 08/29/18 at 23:30 Glucose (Glutose) 15 gm Q15M PRN PO DECREASED GLUCOSE; Start 08/29/18 at 23:30 Glucose (Glutose) 22.5 gm Q15M PRN PO DECREASED GLUCOSE; Start 08/29/18 at 23:30 Dextrose (D50w Syringe) 25 ml Q15M PRN IV DECREASED GLUCOSE; Start 08/29/18 at 23:30 Dextrose (D50w Syringe) 50 ml Q15M PRN IV DECREASED GLUCOSE; Start 08/29/18 at 23:30 Glucagon (Glucagen) 1 mg Q15M PRN IM DECREASED GLUCOSE; Start 08/29/18 at 23:30 Glucose (Glutose) 15 gm Q15M PRN BUCCAL DECREASED GLUCOSE; Start 08/29/18 at 23:30 Fentanyl 100 ml @ 0.1 mls/hr TITRATE IV Last administered on 09/01/18 19:45; Admin Dose 2.5 MLS/HR; Start 08/30/18 at 02:00 Propofol 100 ml @ 1.44 mls/hr Q12H IV Last administered on 09/02/18 03:55; Ad min Dose 8.64 MLS/HR; Start 08/30/18 at 03:30 Aztreonam 2 gm/ Sodium Chloride 100 ml @ 100 mls/hr Q12H IVPB Last administered on 09/03/18 04:46; Admin Dose 100 MLS/HR; Start 08/30/18 at 05:00 Vancomycin HCl (Vanco Iv Per Pharmacy) VANCOMYCIN PER PHARMACY PER PROTOCOL XX ; Start 08/30/18 at 04:30 Enoxaparin Sodium (Lovenox) 40 mg DAILY SC Last administered on 09/03/18 08:25; Admin Dose 40 MG; Start 08/30/18 at 04:45 Guaifenesin/ Dextromethorphan (Robitussin Dm Liquid Cup) 5 ml Q4H PRN PO cough; Start 08/30/18 at 13:00 Norepinephrine 250 ml @ 1.875 mls/ hr TITRATE IV Last administered on 09/01/18 00:57; Admin Dose 1.875 MLS/HR; Start 09/01/18 at 00:00 Phenylephrine HCl 250 ml @ 75 mls/hr TITRATE IV Last administered on 09/02/18 20:07; Admin Dose 15 MLS/HR; Start 09/01/18 at 01:30 Vancomycin/Sodium Chloride 250 ml @ 125 mls/hr Q12H IVPB Last administered on 09/03/18 08:24; Admin Dose 125 MLS/HR; Start 09/02/18 at 08:00 Midazolam HCl 50 ml @ 1 mls/hr TITRATE IV Last administered on 09/02/18 17:38; Admin Dose 3 MLS/HR; Start 09/02/18 at 09:30 Lansoprazole (Prevacid) 30 mg DAILY@06 GTB Last administered on 09/03/18 06:17; Admin Dose 30 MG; Start 09/03/18 at 06:00 Magnesium Sulfate/ Dextrose 100 ml @ 100 mls/hr ONCE ONCE IVPB ; Start 09/03/18 at 10:30; Stop 09/03/18 at 11:29 DANIELA FERRERA Sep 03, 2018 10:51
[2018-09-03] MEDS ORDERED: FUROSEMIDE 20 MG INJ IV ONE (11:00)
--- NOTE | 2018-09-03 16:00 | NUR ---
CM NOTES: SENT ALL CLINICAL UPDATE TO [facility] [phone] (O) AND FAXED [phone]. FIO2 IS TOO HIGH AND NEEDS TO DECREASE TO FIO2 50% OR LESS. FURTHERMORE REPEAT ABG NEEDS TO BE DONE WHEN FIO2 DOWN TO 50%. ASSIGNED CM TOMORROW WILL NEED TO FOLLOW UP DAILY WITH CLINICAL REVIEWS WITH [facility]. LOS IS AUTH BY [facility] SO FAR. SUZIE CARRIZALES LEAD CM [id number]
--- NOTE | 2018-09-03 17:18 | PN ---
Date/Time of Note Date/Time of Note DATE: 09/03/18 TIME: 17:17 Assessment/Plan VTE Prophylaxis Risk score (from Ns)>0 risk: 10 SCD applied (from [facility]): Yes Pharmacological prophylaxis: LMWH Assessment/Plan Hospital Course 1. Acute hypoxemic and hypercapnic on chronic respiratory failure secondary to pneumonia on COPD Continue vent support, patient still on aggressive vent settings Chest ultrasound shows only mild bilateral pleural effusions Lasix IV x1 2. Septic shock secondary to pneumonia Continue vancomycin and aztreonam Pressors as needed 3. Hypothyroidism Continue home meds 4. Essential hypertension Hold home meds secondary to sepsis 5. History of osteoporosis No acute issues 6. Severe Ischemic Hepatopathy likely due to shock liver versus cardiorenal- improving Monitor Prophylaxis: Lovenox DC planning: Patient is currently requiring aggressive vent settings with an FiO2 at 100%, patient with poor prognosis, have spoken to patient's son once again today and he understands patient's prognosis Result Diagram: 09/03/18 0450 09/03/18 0450 Results 24hrs Laboratory Tests Test 09/02/18 20:11 09/03/18 00:56 09/03/18 04:21 09/03/18 04:50 Bedside Glucose 87 109 86 White Blood Count 7.9 Red Blood Count 3.28 L Hemoglobin 10.8 L Hematocrit 33.3 L Mean Corpuscular 101.5 H Volume Mean Corpuscular 32.9 Hemoglobin Mean Corpuscular 32.4 Hemoglobin Concent Red Cell 15.5 H Distribution Width Platelet Count 153 Mean Platelet 10.7 H Volume Immature 2.900 H Granulocytes % Neutrophils % 79.3 H Lymphocytes % 11.6 L Monocytes % 4.4 Eosinophils % 1.5 Basophils % 0.3 Nucleated Red 0.0 Blood Cells % Immature 0.230 H Granulocytes # Neutrophils # 6.2 Lymphocytes # 0.9 Monocytes # 0.4 Eosinophils # 0.1 Basophils # 0.0 Nucleated Red 0.0 Blood Cells # Sodium Level 141 Potassium Level 3.5 Chloride Level 108 Carbon Dioxide 31 Level Anion Gap 2 L Blood Urea 14 Nitrogen Creatinine 0.49 Est Glomerular Filtrat Rate mL/min Glucose Level 95 Calcium Level 7.8 L Magnesium Level 1.7 Total Bilirubin 0.2 Direct Bilirubin 0.00 Indirect Bilirubin 0.2 Aspartate Amino 87 H Transf (AST/SGOT) Alanine 405 H Aminotransferase ( ALT/SGPT) Alkaline 89 Phosphatase Total Protein 5.5 L Albumin 2.4 L Globulin 3.10 Albumin/Globulin 0.77 Ratio Test 09/03/18 05:00 09/03/18 07:00 09/03/18 08:31 09/03/18 13:07 Free Thyroxine 1.31 Blood Gas Specimen Blood arterial Source Arterial Blood 09/03/2018 7:12:07 Date Drawn AM Arterial Blood pH 7.448 (Temp corrected) Arterial Blood 41.6 pCO2 (Temp correct) Arterial Blood pO2 54.1 *L (Temp corrected) Arterial Blood 28.1 H HCO3 Arterial Blood 3.8 H Base Excess Arterial Blood 88.6 L Oxygen Saturation Yordan Test ACCEPTAB Arterial Blood Gas Right Radial Puncture Site Arterial 0.3 Blood Carboxyhemog lobin Arterial Blood 0.1 Methemoglobin Blood Gas A-a O2 400.3 H Differential Oxyhemoglobin 88.2 L Percent Blood Gas 37.0 Temperature Blood Gas 14.0 Respiration Rate Blood Gas Actual 18 Respiration Rate Blood Gas Modality VENT - AC FiO2 70.0 Blood Gas Tidal 500.0 Volume Blood Gas Low PEEP 10.0 Setting Blood Gas Critical RAJESH VU Value Read Back Blood Gas Notified TM Whom Blood Gas Notified 09/03/2018 7:43:55 Time AM Bedside Glucose 96 126 Subjective 24 Hr Interval Summary Subjective hx not possible: pt non-verbal Exam/Review of Systems Vital Signs Vitals Vital Signs Date Temp Pulse Resp B/P (MAP) Pulse Ox O2 O2 Flow FiO2 Time Delivery Rate 09/03/18 68 12 101/65 99 16:15 (77) 09/03/18 98.8 Mechanical 16:00 Ventilator 09/03/18 70 11:20 Intake and Output 09/02/18 09/02/18 09/03/18 1515:00 23:00 07:00 IntakeIntake Total 1219.94 ml 1493.34 ml 1044.0 ml OutputOutput Total 285 ml 400 ml 290 ml BalanceBalance 934.94 ml 1093.34 ml 754.0 ml Exam Constitutional: non-verbal Respiratory: clear to auscultation Cardiovascular: regular rate and rhythm Gastrointestinal: soft; No distended Musculoskeletal: nl extremities to inspection Medications Medications Current Medications Sodium Chloride 1,000 ml @ 80 mls/hr Q42S20H IV Last administered on 09/03/18at 04:46; Admin Dose 80 MLS/HR; Start 08/29/18 at 21:57 Albuterol (Ventolin Hfa) 4 puff Q2H RESP THERAPY PRN INH SHORTNESS OF BREATH Last administered on 09/01/18 05:32; Admin Dose 4 PUFF; Start 08/29/18 at 22:00 Ipratropium [place] (Atrovent Hfa) 4 puff Q2H RESP THERAPY PRN INH SHORTNESS OF BREATH; Start 08/29/18 at 22:00 Acetaminophen (Tylenol Liquid) 650 mg Q6H PRN NGT PAIN LEVEL 1-3 OR FEVER; Start 08/29/18 at 22:00 Insulin Aspart (Novolog Insulin Pen) NOVOLOG *MILD* ALGORI... Q4 SC Last administered on 08/30/18at 08:13; Admin Dose 1 UNIT; Start 08/30/18 at 01:00 Levothyroxine Sodium (Synthroid Iv) 88 mcg DAILY@0700 IV Last administered on 09/03/18 06:17; Admin Dose 88 MCG; Start 08/30/18 at 07:00 Miscellaneous Information 1 ea NOTE XX ; Start 08/29/18 at 23:30 Glucose (Glutose) 15 gm Q15M PRN PO DECREASED GLUCOSE; Start 08/29/18 at 23:30 Glucose (Glutose) 22.5 gm Q15M PRN PO DECREASED GLUCOSE; Start 08/29/18 at 23: 30 Dextrose (D50w Syringe) 25 ml Q15M PRN IV DECREASED GLUCOSE; Start 08/29/18 at 23:30 Dextrose (D50w Syringe) 50 ml Q15M PRN IV DECREASED GLUCOSE; Start 08/29/18 at 23:30 Glucagon (Glucagen) 1 mg Q15M PRN IM DECREASED GLUCOSE; Start 08/29/18 at 23:30 Glucose (Glutose) 15 gm Q15M PRN BUCCAL DECREASED GLUCOSE; Start 08/29/18 at 23:30 Fentanyl 100 ml @ 0.1 mls/hr TITRATE IV Last administered on 09/01/18 19:45; Admin Dose 2.5 MLS/HR; Start 08/30/18 at 02:00 Propofol 100 ml @ 1.44 mls/hr Q12H IV Last administered on 09/02/18 03:55; Admin Dose 8.64 MLS/HR; Start 08/30/18 at 03:30 Aztreonam 2 gm/ Sodium Chloride 100 ml @ 100 mls/hr Q12H IVPB Last administered on 09/03/18 16:57; Admin Dose 100 MLS/HR; Start 08/30/18 at 05:00 Vancomycin HCl (Vanco Iv Per Pharmacy) VANCOMYCIN PER PHARMACY PER PROTOCOL XX ; Start 08/30/18 at 04:30 Enoxaparin Sodium (Lovenox) 40 mg DAILY SC Last administered on 09/03/18 08:25; Admin Dose 40 MG; Start 08/30/18 at 04:45 Guaifenesin/ Dextromethorphan (Robitussin Dm Liquid Cup) 5 ml Q4H PRN PO cough; Start 08/30/18 at 13:00 Norepinephrine 250 ml @ 1.875 mls/ hr TITRATE IV Last administered on 09/01/18 00:57; Admin Dose 1.875 MLS/HR; Start 09/01/18 at 00:00 Phenylephrine HCl 250 ml @ 75 mls/hr TITRATE IV Last administered on 09/02/18 20:07; Admin Dose 15 MLS/HR; Start 09/01/18 at 01:30 Vancomycin/Sodium Chloride 250 ml @ 125 mls/hr Q12H IVPB Last administered on 09/03/18 08:24; Admin Dose 125 MLS/HR; Start 09/02/18 at 08:00 Midazolam HCl 50 ml @ 1 mls/hr TITRATE IV Last administered on 09/02/18 17:38; Admin Dose 3 MLS/HR; Start 09/02/18 at 09:30 Lansoprazole (Prevacid) 30 mg DAILY@06 GTB Last administered on 09/03/18 06:17; Admin Dose 30 MG; Start 09/03/18 at 06:00 Miscellaneous Information (*Rx Drug Level Order Reminder*) 1 ONCE ONCE XX ; Start 09/03/18 at 19:00; Stop 09/03/18 at 19:01 ANA DIAMOND Sep 03, 2018 17:18
--- NOTE | 2018-09-03 18:33 | NUR ---
EOSS PT STABLE ON VENTILATOR; PT [id number] INCREASED TODAY TO 100%. HAD 2 MIN RUN OF SINUS TACHYCARDIA; PER DR. BOSTON 1GM MAG ORDERED AND [address] FERRERA WELL SO 2GM MAG GIVEN TODAY. PT ALSO RECEIVED LASIX PER DR. DIAMOND. AFEBRILE. URINE OUTPUT ADEQUATE. PT'S SON CARMEN UPDATED ON PT PLAN OF CARE TODAY; CLAIMED HE IS DECIDING CODE STATUS. TOLERATING TUBE FEEDING WELL. ALL INFORMATION ENDORSED TO DIRECTOR OF TEACHING AND LEARNING NURSE.
--- NOTE | 2018-09-03 19:35 | RADRPT ---
Vent Rate: 72 bpm RR Interval: [address] Interval: 140 msec QRS Duration: 88 msec QT Interval: 412 msec QTC Interval: 451 msec P-R-T Williamson: 56 - 82 - 64 degrees Normal sinus rhythm Low voltage QRS Borderline ECG Electronically Signed By: Jeromy Hargrove [id number]
[2018-09-03] MEDS: MIDAZOLAM (DRIP) 50 mg/50 mL 50 ML IV SCH (21:18)
[2018-09-04] VITALS (98 sets, daily range): BP systolic 78–137; BP diastolic 49–77; PULSE 56–90; RESP 6–23
[2018-09-04] MEDS: INSULIN ASPART [NOVOLOG] 3 ML PEN SC SCH ×6 (00:23→21:00)
[2018-09-04] MEDS: PHENYLephrine 20MG IN 250 ML 250 ML IV SCH ×2 (00:25→16:51)
[2018-09-04] MEDS: AZTREONAM 2 GM in SOD CHLORIDE 0.9% 100 ML IVPB SCH ×2 (06:13→17:34)
[2018-09-04] MEDS: LANSOPRAZOLE 30 MG CAP GTB SCH (06:14)
[2018-09-04] MEDS: LEVOTHYROXINE 100 MCG VIAL IV SCH (07:27)
--- NOTE | 2018-09-04 08:16 | NUR ---
VANCOMYCIN PER PHARMACY NOTE RADHA TR = 12.4 DX: PNA INCREASE VANCOMYCIN DOSE TO 1 GRAM Q12H FOR NOW. CHECK TR PRIOR TO 4TH DOSE. PHARMACY WILL FOLLOW. THANK YOU.
[2018-09-04] MEDS: VANCOMYCIN 1 GM 250 ML IVPB SCH ×2 (08:18→20:46)
--- NOTE | 2018-09-04 08:54 | CONS ---
Date/Time of Note Date/Time of Note DATE: 09/04/18 TIME: 08:51 Assessment/Plan Assessment/Plan Assessment/Plan Ventilator setting; AC of 14, tidal volume 500, PEEP of 10, 90% FiO2. Patient is currently on fentanyl 10 mics per hour, Versed 3 mg/h, phenylephrine drip 20 mics per minute. Chest x-ray showing small right pleural effusion with right lower lobe infiltrate. Assessment and recommendations; 1. Patient admitted with severe sepsis due to bilateral pneumonia leading to respiratory failure requiring intubation. 2. Persistent hypoxemia requiring high FiO2. Chest x-ray findings are noted indicative of pneumonia alone explaining hypoxemia. 3. Shock liver with interval improvement. 4. Persistent hypotension with interval improvement. 5. Sacral ulcer as well as multiple other ulcers likely source of infection. 6. Mild anemia and thrombocytopenia. 7. UTI. Continue current supportive care. Obtain CTA chest to rule out pulmonary embolism. Continue current antibiotics and other supportive measures. Prognosis is guarded. 35 minutes of critical care time was spent evaluating the patient. Result Diagram: 09/04/18 0449 09/04/18 0453 Results 24hrs Laboratory Tests Test 09/03/18 13:07 09/03/18 17:32 09/03/18 19:16 09/03/18 21:15 Bedside Glucose 126 117 87 Vancomycin Level Trough 12.4 Test 09/04/18 00:22 09/04/18 04:49 09/04/18 04:53 09/04/18 06:13 Bedside Glucose 97 90 White Blood Count 8.8 Red Blood Count 3.41 L Hemoglobin 11.0 L Hematocrit 34.1 L Mean Corpuscular Volume 100.0 Mean Corpuscular 32.3 Hemoglobin Mean Corpuscular 32.3 Hemoglobin Concent Red Cell Distribution 15.3 H Width Platelet Count 156 Mean Platelet Volume 10.7 H Immature Granulocytes % 2.200 H Neutrophils % 83.7 H Lymphocytes % 8.0 L Monocytes % 4.9 Eosinophils % 1.0 Basophils % 0.2 Nucleated Red Blood 0.0 Cells % Immature Granulocytes # 0.190 H Neutrophils # 7.4 Lymphocytes # 0.7 L Monocytes # 0.4 Eosinophils # 0.1 Basophils # 0.0 Nucleated Red Blood 0.0 Cells # Sodium Level 140 Potassium Level 3.4 L Chloride Level 105 Carbon Dioxide Level 32 H Anion Gap 3 L Blood Urea Nitrogen 11 Creatinine 0.46 Est Glomerular Filtrat Rate mL/min Glucose Level 118 Calcium Level 7.9 L Consultation Date/Type/Reason Admit Date/Time Aug 29, 2018 at 22:04 Initial Consult Date 08/30/18 Type of Consult Pulmonary/critical care Requesting Provider: MARYLIN SERVIN MD 24 HR Interval Summary Free Text/Dictation Patient's condition remains critical. Still requiring high high FiO2. As well as low-dose pressor support for hypotension. General exam; elderly female, orally intubated, sedated, currently in no distres s. Exam/Review of Systems Vital Signs Vitals Vital Signs Date Temp Pulse Resp B/P (MAP) Pulse Ox O2 O2 Flow FiO2 Time Delivery Rate 09/04/18 64 14 104/61 100 08:15 (75) 09/04/18 98.4 Mechanical 08:00 Ventilator 09/04/18 90 05:00 Intake and Output 09/03/18 09/03/18 09/04/18 1515:00 23:00 07:00 IntakeIntake Total 898.5 ml 926.0 ml 812 ml OutputOutput Total 1715 ml 885 ml 400 ml BalanceBalance -816.5 ml 41.0 ml 412 ml Exam H EENT exam; supple neck, no JVD. No lymphadenopathy. Midline trachea. No thyromegaly. Orally intubated. Orogastric tube in place. Patient has fair dentition. Pupils are small bilaterally. Chest exam; diminished breath sound lung bases. Upper lobes are clear. S1-S2 audible, no murmurs. Regular rhythm. Abdomen exam; soft, no organomegaly. Bowel sounds audible. Extremity exam; no peripheral edema. Back examination; sacral ulcer. Patient also has multiple extremity ulcers. COAL PASSER exam; patient is sedated. Medications Medications Current Medications Sodium Chloride 1,000 ml @ 80 mls/hr [id number] IV Last administered on 09/03/18at 21:22; Admin Dose 80 MLS/HR; Start 08/29/18 at 21:57 Albuterol (Ventolin Hfa) 4 puff Q2H RESP THERAPY PRN INH SHORTNESS OF BREATH Last administered on 09/01/18at 05:32; Admin Dose 4 PUFF; Start 08/29/18 at 22:00 Ipratropium [place] (Atrovent Hfa) 4 puff Q2H RESP THERAPY PRN INH SHORTNESS OF BREATH; Start 08/29/18 at 22:00 Acetaminophen (Tylenol Liquid) 650 mg Q6H PRN NGT PAIN LEVEL 1-3 OR FEVER; Start 08/29/18 at 22:00 Insulin Aspart (Novolog Insulin Pen) NOVOLOG *MILD* ALGORI... Q4 SC Last administered on 08/30/18at 08:13; Admin Dose 1 UNIT; Start 08/30/18 at 01:00 Levothyroxine Sodium (Synthroid Iv) 88 mcg DAILY@0700 IV Last administered on 09/04/18 07:27; Admin Dose 88 MCG; Start 08/30/18 at 07:00 Miscellaneous Information 1 ea NOTE XX ; Start 08/29/18 at 23:30 Glucose (Glutose) 15 gm Q15M PRN PO DECREASED GLUCOSE; Start 08/29/18 at 23:30 Glucose (Glutose) 22.5 gm Q15M PRN PO DECREASED GLUCOSE; Start 08/29/18 at 23:30 Dextrose (D50w Syringe) 25 ml Q15M PRN IV DECREASED GLUCOSE; Start 08/29/18 at 23:30 Dextrose (D50w Syringe) 50 ml Q15M PRN IV DECREASED GLUCOSE; Start 08/29/18 at 23:30 Glucagon (Glucagen) 1 mg Q15M PRN IM DECREASED GLUCOSE; Start 08/29/18 at 23:30 Glucose (Glutose) 15 gm Q15M PRN BUCCAL DECREASED GLUCOSE; Start 08/29/18 at 23:30 Fentanyl 100 ml @ 0.1 mls/hr TITRATE IV Last administered on 09/01/18 19:45; Admin Dose 2.5 MLS/HR; Start 08/30/18 at 02:00 Aztreonam 2 gm/ Sodium Chloride 100 ml @ 100 mls/hr Q12H IVPB Last administered on 09/04/18 06:13; Admin Dose 100 MLS/HR; Start 08/30/18 at 05:00 Vancomycin HCl (Vanco Iv Per Pharmacy) VANCOMYCIN PER PHARMACY PER PROTOCOL XX ; Start 08/30/18 at 04:30 Enoxaparin Sodium (Lovenox) 40 mg DAILY SC Last administered on 09/03/18 08:25; Admin Dose 40 MG; Start 08/30/18 at 04:45 Guaifenesin/ Dextromethorphan (Robitussin Dm Liquid Cup) 5 ml Q4H PRN PO cough; Start 08/30/18 at 13:00 Norepinephrine 250 ml @ 1.875 mls/ hr TITRATE IV Last administered on 09/01/18at 00:57; Admin Dose 1.875 MLS/HR; Start 09/01/18 at 00:00 Phenylephrine HCl 250 ml @ 75 mls/hr TITRATE IV Last administered on 09/04/18at 00:25; Admin Dose 15 MLS/HR; Start 09/01/18 at 01:30 Midazolam HCl 50 ml @ 1 mls/hr TITRATE IV Last administered on 09/03/18at 21:18; Admin Dose 3 MLS/HR; Start 09/02/18 at 09:30 Lansoprazole (Prevacid) 30 mg DAILY@06 GTB Last administered on 09/04/18at 06:14; Admin Dose 30 MG; Start 09/03/18 at 06:00 Vancomycin HCl 250 ml @ 125 mls/hr Q12H IVPB Last administered on 09/04/18 08:18; Admin Dose 125 MLS/HR; Start 09/04/18 at 08:00 SHARON BOSTON Sep 04, 2018 08:54
[2018-09-04] MEDS: ENOXAPARIN 40 MG/0.4 ML SYG SC SCH (09:00)
[2018-09-04] MEDS ORDERED: IOHEXOL 300MG/ML 150 ML BTL ONE (09:33)
[2018-09-04] MEDS ORDERED: SOD CHLORIDE 0.9% 100 ML ONE (09:33)
--- NOTE | 2018-09-04 10:13 | CONS ---
Date/Time of Note Date/Time of Note DATE: 09/04/18 TIME: 10:08 Assessment/Plan Assessment/Plan Hospital Course IMPRESSION 1. Hypotension/shock, improved off of pressors at this time.-Back on pressors. EF 55% by echo this admit. Neg trop x 3 2. Respiratory failure status post intubation. 3. Chronic obstructive pulmonary disease. 4. Lactic acidosis. 5. Hypothyroidism. 6. Increased liver function tests. 7. Hypotension-on yobani 8. SVT-overnight to 170-180 reguar-TSH suppressed by labs but nl Free t4 Recc: -ICU -wean vent as possible -continue abx's and f/u cx data -wean yobani as tolerated -consider dose lasix to assure good volume status -Being started on lovenox full treatment doses for possible PE by pulmonary Result Diagram: 09/04/18 0449 09/04/18 0453 Results 24hrs Laboratory Tests Test 09/03/18 13:07 09/03/18 17:32 09/03/18 19:16 09/03/18 21:15 Bedside Glucose 126 117 87 Vancomycin Level Trough 12.4 Test 09/04/18 00:22 09/04/18 04:49 09/04/18 04:53 09/04/18 06:13 Bedside Glucose 97 90 White Blood Count 8.8 Red Blood Count 3.41 L Hemoglobin 11.0 L Hematocrit 34.1 L Mean Corpuscular Volume 100.0 Mean Corpuscular 32.3 Hemoglobin Mean Corpuscular 32.3 Hemoglobin Concent Red Cell Distribution 15.3 H Width Platelet Count 156 Mean Platelet Volume 10.7 H Immature Granulocytes % 2.200 H Neutrophils % 83.7 H Lymphocytes % 8.0 L Monocytes % 4.9 Eosinophils % 1.0 Basophils % 0.2 Nucleated Red Blood 0.0 Cells % Immature Granulocytes # 0.190 H Neutrophils # 7.4 Lymphocytes # 0.7 L Monocytes # 0.4 Eosinophils # 0.1 Basophils # 0.0 Nucleated Red Blood 0.0 Cells # Sodium Level 140 Potassium Level 3.4 L Chloride Level 105 Carbon Dioxide Level 32 H Anion Gap 3 L Blood Urea Nitrogen 11 Creatinine 0.46 Est Glomerular Filtrat Rate mL/min Glucose Level 118 Calcium Level 7.9 L Test 09/04/18 08:58 Bedside Glucose 100 Consultation Date/Type/Reason Admit Date/Time Aug 29, 2018 at 22:04 Initial Consult Date 08/30/18 Type of Consult cardiology Reason for Consultation HYpotension Requesting Provider: MARYLIN SERVIN MD Exam/Review of Systems Vital Signs Vitals Vital Signs Date Temp Pulse Resp B/P (MAP) Pulse Ox O2 O2 Flow FiO2 Time Delivery Rate 09/04/18 64 14 104/61 100 08:15 (75) 09/04/18 98.4 Mechanical 08:00 Ventilator 09/04/18 90 05:00 Intake and Output 09/03/18 09/03/18 09/04/18 1515:00 23:00 07:00 IntakeIntake Total 898.5 ml 926.0 ml 812 ml OutputOutput Total 1715 ml 885 ml 400 ml BalanceBalance -816.5 ml 41.0 ml 412 ml Exam Review of Systems: CONSTITUTIONAL: No fevers, chills. PULMONARY: intubated CARDIOVASCULAR: No chest pain/palpitations GASTROINTESTINAL: No nausea/vomiting. GENITOURINARY: No hematuria/dysuria. MUSCULOSKELETAL: No myagias/arthalgias. PSYCHIATRIC: The patient denies depression. NEUROLOGIC: No weakness Constitutional: other (sedated) ENMT: intubated Neck: supple, jvd (9 cm water) Respiratory: diminished breath sounds (at bases/B) Cardiovascular: regular rate and rhythm Gastrointestinal: soft, non-tender Musculoskeletal: muscle weakness (mild generalized) Extremities: edema (trace/B) Neurological: other (No focal deficits/sedated) Medications Medications Current Medications Sodium Chloride 1,000 ml @ 80 mls/hr [id number] IV Last administered on 09/03/18at 21:22; Admin Dose 80 MLS/HR; Start 08/29/18 at 21:57 Albuterol (Ventolin Hfa) 4 puff Q2H RESP THERAPY PRN INH SHORTNESS OF BREATH Last administered on 09/01/18at 05:32; Admin Dose 4 PUFF; Start 08/29/18 at 22:00 Ipratropium [place] (Atrovent Hfa) 4 puff Q2H RESP THERAPY PRN INH SHORTNESS OF BREATH; Start 08/29/18 at 22:00 Acetaminophen (Tylenol Liquid) 650 mg Q6H PRN NGT PAIN LEVEL 1-3 OR FEVER; Start 08/29/18 at 22:00 Insulin Aspart (Novolog Insulin Pen) NOVOLOG *MILD* ALGORI... Q4 SC Last administered on 08/30/18at 08:13; Admin Dose 1 UNIT; Start 08/30/18 at 01:00 Levothyroxine Sodium (Synthroid Iv) 88 mcg DAILY@0700 IV Last administered on 09/04/18 07:27; Admin Dose 88 MCG; Start 08/30/18 at 07:00 Miscellaneous Information 1 ea NOTE XX ; Start 08/29/18 at 23:30 Glucose (Glutose) 15 gm Q15M PRN PO DECREASED GLUCOSE; Start 08/29/18 at 23:30 Glucose (Glutose) 22.5 gm Q15M PRN PO DECREASED GLUCOSE; Start 08/29/18 at 23:30 Dextrose (D50w Syringe) 25 ml Q15M PRN IV DECREASED GLUCOSE; Start 08/29/18 at 23:30 Dextrose (D50w Syringe) 50 ml Q15M PRN IV DECREASED GLUCOSE; Start 08/29/18 at 23:30 Glucagon (Glucagen) 1 mg Q15M PRN IM DECREASED GLUCOSE; Start 08/29/18 at 2 3:30 Glucose (Glutose) 15 gm Q15M PRN BUCCAL DECREASED GLUCOSE; Start 08/29/18 at 23:30 Fentanyl 100 ml @ 0.1 mls/hr TITRATE IV Last administered on 09/01/18 19:45; Admin Dose 2.5 MLS/HR; Start 08/30/18 at 02:00 Aztreonam 2 gm/ Sodium Chloride 100 ml @ 100 mls/hr Q12H IVPB Last administered on 09/04/18 06:13; Admin Dose 100 MLS/HR; Start 08/30/18 at 05:00 Vancomycin HCl (Vanco Iv Per Pharmacy) VANCOMYCIN PER PHARMACY PER PROTOCOL XX ; Start 08/30/18 at 04:30 Enoxaparin Sodium (Lovenox) 40 mg DAILY SC Last administered on 09/04/18 09:00; Admin Dose 40 MG; Start 08/30/18 at 04:45 Guaifenesin/ Dextromethorphan (Robitussin Dm Liquid Cup) 5 ml Q4H PRN PO cough; Start 08/30/18 at 13:00 Norepinephrine 250 ml @ 1.875 mls/ hr TITRATE IV Last administered on 1/1/19at 00:57; Admin Dose 1.875 MLS/HR; Start 09/01/18 at 00:00 Phenylephrine HCl 250 ml @ 75 mls/hr TITRATE IV Last administered on 09/04/18at 00:25; Admin Dose 15 MLS/HR; Start 09/01/18 at 01:30 Midazolam HCl 50 ml @ 1 mls/hr TITRATE IV Last administered on 09/03/18at 21:18; Admin Dose 3 MLS/HR; Start 09/02/18 at 09:30 Lansoprazole (Prevacid) 30 mg DAILY@06 GTB Last administered on 09/04/18at 06:14; Admin Dose 30 MG; Start 09/03/18 at 06:00 Vancomycin HCl 250 ml @ 125 mls/hr Q12H IVPB Last administered on 09/04/18at 08:18; Admin Dose 125 MLS/HR; Start 09/04/18 at 08:00 DANIELA FERRERA Sep 04, 2018 10:13
[2018-09-04] MEDS ORDERED: FUROSEMIDE 20 MG INJ IV ONE (10:30)
[2018-09-04] MEDS ORDERED: ENOXAPARIN 30 MG/0.3 ML SYG SC ONE (10:30)
[2018-09-04] MEDS: DOCUSATE SODIUM 10 MG/ML (10ML CUP) GTB SCH ×2 (10:35→20:46)
[2018-09-04] MEDS: MIDAZOLAM (DRIP) 50 mg/50 mL 50 ML IV SCH ×2 (10:41→20:48)
--- NOTE | 2018-09-04 12:26 | NUR ---
spoke with dr. garcía regarding low calcium; no orders were given.
--- NOTE | 2018-09-04 12:27 | NUR ---
pt scheduled to have CTPA for r/o PE this morning but d/t pt fio2 90% then 70%, pt too unstable. moved to tomorrow.
[2018-09-04] MEDS: POTASSIUM CHLORIDE 50 ML IVPB SCH ×2 (13:41→15:59)
--- NOTE | 2018-09-04 15:09 | PN ---
Date/Time of Note Date/Time of Note DATE: 09/04/18 TIME: 15:08 Assessment/Plan VTE Prophylaxis Risk score (from Ns)>0 risk: 10 SCD applied (from [facility] [place]): Yes Pharmacological prophylaxis: LMWH Assessment/Plan Hospital Course 1. Acute hypoxemic and hypercapnic on chronic respiratory failure secondary to pneumonia on COPD Continue vent support, patient still on aggressive vent settings but FiO2 has been titrated down to 90% Chest ultrasound shows only mild bilateral pleural effusions Status post Lasix IV x1 2. Septic shock secondary to pneumonia Continue vancomycin and aztreonam Pressors as needed 3. Hypothyroidism Continue home meds 4. Essential hypertension Hold home meds secondary to sepsis 5. History of osteoporosis No acute issues 6. Severe Ischemic Hepatopathy likely due to shock liver versus cardiorenal- improving Monitor Prophylaxis: Lovenox DC planning: Patient is currently requiring aggressive vent settings with an FiO2 at 90 %, patient with poor prognosis, have spoken to patient's son once again today and he understands patient's prognosis Result Diagram: 09/04/18 0449 09/04/18 0453 Results 24hrs Laboratory Tests Test 09/03/18 17:32 09/03/18 19:16 09/03/18 21:15 09/04/18 00:22 Bedside Glucose 117 87 97 Vancomycin Level 12.4 Trough Test 09/04/18 04:49 09/04/18 04:53 09/04/18 06:13 09/04/18 08:58 White Blood Count 8.8 Red Blood Count 3.41 L Hemoglobin 11.0 L Hematocrit 34.1 L Mean Corpuscular 100.0 Volume Mean Corpuscular 32.3 Hemoglobin Mean Corpuscular 32.3 Hemoglobin Concent Red Cell 15.3 H Distribution Width Platelet Count 156 Mean Platelet 10.7 H Volume Immature 2.200 H Granulocytes % Neutrophils % 83.7 H Lymphocytes % 8.0 L Monocytes % 4.9 Eosinophils % 1.0 Basophils % 0.2 Nucleated Red 0.0 Blood Cells % Immature 0.190 H Granulocytes # Neutrophils # 7.4 Lymphocytes # 0.7 L Monocytes # 0.4 Eosinophils # 0.1 Basophils # 0.0 Nucleated Red 0.0 Blood Cells # Sodium Level 140 Potassium Level 3.4 L Chloride Level 105 Carbon Dioxide 32 H Level Anion Gap 3 L Blood Urea 11 Nitrogen Creatinine 0.46 Est Glomerular Filtrat Rate mL/min Glucose Level 118 Calcium Level 7.9 L Bedside Glucose 90 100 Test 09/04/18 12:30 09/04/18 12:45 Blood Gas Specimen Blood arterial Source Arterial Blood 09/04/2018 12:36:20 Date Drawn PM Arterial Blood pH 7.410 (Temp corrected) Arterial Blood 47.9 H pCO2 (Temp correct) Arterial Blood pO2 81.0 (Temp corrected) Arterial Blood 29.7 H HCO3 Arterial Blood 4.2 H Base Excess Arterial Blood 95.5 Oxygen Saturation Yordan Test ACCEPTAB Arterial Blood Gas Right Radial Puncture Site Arterial 0.3 Blood Carboxyhemog lobin Arterial Blood 0.2 Methemoglobin Blood Gas A-a O2 366.6 H Differential Oxyhemoglobin 95.0 Percent Blood Gas 37.0 Temperature Blood Gas 14.0 Respiration Rate Blood Gas Actual 14 Respiration Rate Blood Gas Modality VENT - AC FiO2 70.0 Blood Gas Tidal 500.0 Volume Blood Gas Low PEEP 10.0 Setting Blood Gas Notified TM Whom Blood Gas Notified 09/04/2018 12:46:04 Time PM Bedside Glucose 101 Subjective 24 Hr Interval Summary Subjective hx not possible: pt non-verbal Exam/Review of Systems Vital Signs Vitals Vital Signs Date Temp Pulse Resp B/P (MAP) Pulse Ox O2 O2 Flow FiO2 Time Delivery Rate 09/04/18 65 14 94/63 (73) 98 14:30 09/04/18 Mechanical 14:00 Ventilator 09/04/18 80 13:30 09/04/18 99.2 12:00 Intake and Output 09/03/18 09/03/18 09/04/18 1515:00 23:00 07:00 IntakeIntake Total 898.5 ml 926.0 ml 942 ml OutputOutput Total 1715 ml 885 ml 465 ml BalanceBalance -816.5 ml 41.0 ml 477 ml Exam Constitutional: non-verbal Respiratory: clear to auscultation Cardiovascular: regular rate and rhythm Gastrointestinal: soft; No distended Musculoskeletal: nl extremities to inspection Medications Medications Current Medications Sodium Chloride 1,000 ml @ 80 mls/hr [id number] IV Last administered on 09/03/18at 21:22; Admin Dose 80 MLS/HR; Start 08/29/18 at 21:57 Albuterol (Ventolin Hfa) 4 puff Q2H RESP THERAPY PRN INH SHORTNESS OF BREATH Last administered on 09/01/18 05:32; Admin Dose 4 PUFF; Start 08/29/18 at 22:00 Ipratropium [place] (Atrovent Hfa) 4 puff Q2H RESP THERAPY PRN INH SHORTNESS OF BREATH; Start 08/29/18 at 22:00 Acetaminophen (Tylenol Liquid) 650 mg Q6H PRN NGT PAIN LEVEL 1-3 OR FEVER; Start 08/29/18 at 22:00 Insulin Aspart (Novolog Insulin Pen) NOVOLOG *MILD* ALGORI... Q4 SC Last administered on 08/30/18at 08:13; Admin Dose 1 UNIT; Start 08/30/18 at 01:00 Levothyroxine Sodium (Synthroid Iv) 88 mcg DAILY@0700 IV Last administered on 09/04/18 07:27; Admin Dose 88 MCG; Start 08/30/18 at 07:00 Miscellaneous Information 1 ea NOTE XX ; Start 08/29/18 at 23:30 Glucose (Glutose) 15 gm Q15M PRN PO DECREASED GLUCOSE; Start 08/29/18 at 23:30 Glucose (Glutose) 22.5 gm Q15M PRN PO DECREASED GLUCOSE; Start 08/29/18 at 23:30 Dextrose (D50w Syringe) 25 ml Q15M PRN IV DECREASED GLUCOSE; Start 08/29/18 at 23:30 Dextrose (D50w Syringe) 50 ml Q15M PRN IV DECREASED GLUCOSE; Start 08/29/18 at 23:30 Glucagon (Glucagen) 1 mg Q15M PRN IM DECREASED GLUCOSE; Start 08/29/18 at 23:30 Glucose (Glutose) 15 gm Q15M PRN BUCCAL DECREASED GLUCOSE; Start 08/29/18 at 23:30 Fentanyl 100 ml @ 0.1 mls/hr TITRATE IV Last administered on 09/01/18 19:45; Admin Dose 2.5 MLS/HR; Start 08/30/18 at 02:00 Aztreonam 2 gm/ Sodium Chloride 100 ml @ 100 mls/hr Q12H IVPB Last administered on 09/04/18 06:13; Admin Dose 100 MLS/HR; Start 08/30/18 at 05:00 Vancomycin HCl (Vanco Iv Per Pharmacy) VANCOMYCIN PER PHARMACY PER PROTOCOL XX ; Start 08/30/18 at 04:30 Guaifenesin/ Dextromethorphan (Robitussin Dm Liquid Cup) 5 ml Q4H PRN PO cough; Start 08/30/18 at 13:00 Norepinephrine 250 ml @ 1.875 mls/ hr TITRATE IV Last administered on 09/01/18at 00:57; Admin Dose 1.875 MLS/HR; Start 09/01/18 at 00:00 Phenylephrine HCl 250 ml @ 75 mls/hr TITRATE IV Last administered on 09/04/18at 00:25; Admin Dose 15 MLS/HR; Start 09/01/18 at 01:30 Midazolam HCl 50 ml @ 1 mls/hr TITRATE IV Last administered on 09/04/18 10:41; Admin Dose 3 MLS/HR; Start 09/02/18 at 09:30 Lansoprazole (Prevacid) 30 mg DAILY@06 GTB Last administered on 09/04/18at 06:14; Admin Dose 30 MG; Start 09/03/18 at 06:00 Vancomycin HCl 250 ml @ 125 mls/hr Q12H IVPB Last administered on 09/04/18at 08:18; Admin Dose 125 MLS/HR; Start 09/04/18 at 08:00 Docusate Sodium (Colace Liquid Cup) 100 mg BID GTB Last administered on 09/04/18at 10:35; Admin Dose 100 MG; Start 09/04/18 at 10:30 Potassium Chloride 50 ml @ 25 mls/hr Q2H IVPB Last administered on 09/04/18at 13:41; Admin Dose 25 MLS/HR; Start 09/04/18 at 13:00; Stop 09/04/18 at 16:59 Enoxaparin Sodium (Lovenox) 65 mg Q12 SC ; Start 09/04/18 at 21:00 ANA DIAMOND Sep 04, 2018 15:09
[2018-09-04] MEDS: FENTAnyl (DRIP) 1000 mcg/100mL 100 ML IV SCH (16:53)
--- NOTE | 2018-09-04 17:00 | NUR ---
CM NOTES: SENT ALL CLINICAL UPDATE TO [facility] [phone] (O) AND FAXED [phone]. FIO2 IS TOO HIGH AND NEEDS TO DECREASE TO FIO2 50% OR LESS. FURTHERMORE REPEAT ABG NEEDS TO BE DONE WHEN FIO2 DOWN TO 50%. ASSIGNED CM TOMORROW WILL NEED TO FOLLOW UP DAILY WITH CLINICAL REVIEWS WITH [facility]. LOS IS AUTH BY [facility] SO FAR. SUZIE CARRIZALES, LEAD CM [id number]
--- NOTE | 2018-09-04 18:37 | NUR ---
EOSS PT STABLE ON VENTILATOR; 2GM K+ GIVEN TODAY. AFEBRILE. BS WNL; NO INSULIN GIVEN. PT FIO2 WEANED FROM 100% TO 80% TO 75% AND TO 70% TODAY; 70% NOW. D/C PROPHYLATIC LOVENOX DOSE TODAY AND IS CHANGED TO LOVENOX DOSE FOR POSSIBLE PE PER DR. BOSTON. PT SON UPDATED ON PLAN OF CARE. OF NOW, STILL FULL CODE. PT SON CONTACTING DR. LOBO MONIQUE TO DISCUSS CODE STATUS. WILL ENDORSE ALL INFORMATION TO COMMUNITY SUPPORT ASSOCIATE NURSE. Addendum: 09/04/18 at 1920 by OCHOA JAVIER RN 40 MEQ'S TOTAL OF K+
[2018-09-04] MEDS: ENOXAPARIN 80 MG/0.8 ML SYG SC SCH (20:47)
[2018-09-04] MEDS: SOD CHLORIDE 0.9% 1,000 ML IV SCH (20:48)
[2018-09-05] VITALS (103 sets, daily range): BP systolic 75–142; BP diastolic 45–79; PULSE 55–107; RESP 13–23
--- NOTE | 2018-09-05 00:48 | NUR ---
CALLED TRANSPORT FOR THE THIRD TIME IN 4 HRS FOR TUBE FEED/FIBERSOURCE.
[2018-09-05] MEDS: INSULIN ASPART [NOVOLOG] 3 ML PEN SC SCH ×6 (01:00→21:00)
--- NOTE | 2018-09-05 01:17 | NUR ---
PATIENT HAD 9 MINUTE RUN OF SVT. MD KLEIN NOTIFIED IMMEDIATELY AND PATIENT SVT RESOLVED WHILE ON PHONE WITH MD. MD ORDERED BMP, MG, AND PHOS. PATIENT PATIENT ORDERS PLACED. WILL CONTINUE TO MONITOR PATIENT CLOSELY. PATIENT BP 94/58 AND HR 76 CURRENTLY.
--- NOTE | 2018-09-05 01:31 | NUR ---
PATIENT LABS COLLECTED BY ASSISTANT BRAND MANAGER. PATIENT VSS ON MONITOR. WILL CONTINUE TO MONITOR PATIENT CLOSELY.
--- NOTE | 2018-09-05 01:33 | NUR ---
RESPIRATORY THERAPIST NOTIFIED THAT PATIENT HAD RUN SVT.
[2018-09-05] MEDS: AZTREONAM 2 GM in SOD CHLORIDE 0.9% 100 ML IVPB SCH ×2 (05:42→17:00)
[2018-09-05] MEDS: LANSOPRAZOLE 30 MG CAP GTB SCH (05:43)
[2018-09-05] MEDS: LEVOTHYROXINE 100 MCG VIAL IV SCH (06:10)
[2018-09-05] MEDS: SOD CHLORIDE 0.9% 1,000 ML IV SCH ×3 (07:50→19:30)
[2018-09-05] MEDS: DOCUSATE SODIUM 10 MG/ML (10ML CUP) GTB SCH ×2 (08:21→21:42)
[2018-09-05] MEDS: VANCOMYCIN 1 GM 250 ML IVPB SCH ×2 (08:21→20:42)
[2018-09-05] MEDS: ENOXAPARIN 80 MG/0.8 ML SYG SC SCH ×2 (08:23→21:44)
[2018-09-05] MEDS: PHENYLephrine 20MG IN 250 ML 250 ML IV SCH (09:08)
--- NOTE | 2018-09-05 10:28 | NUR ---
[facility] Clinical Report; Sent updated clinical report to [facility] , faxed to . Called to confirm if they received reports; they have it and currently being reviewed by "Gregg" Subsurface [employer]mentee Elint Operator. Provided [facility] contact information if they have questions, will follow accordingly.
[2018-09-05] MEDS ORDERED: MAGNESIUM SULFATE 4 GM/100 ML 100 ML IVPB ONE (10:30)
--- NOTE | 2018-09-05 11:20 | PN ---
Date/Time of Note Date/Time of Note DATE: 09/05/18 TIME: 11:19 Assessment/Plan VTE Prophylaxis Risk score (from [facility])>0 risk: 11 SCD applied (from [facility]): Yes Pharmacological prophylaxis: LMWH Assessment/Plan Hospital Course 1. Acute hypoxemic and hypercapnic on chronic respiratory failure secondary to pneumonia on COPD Continue vent support, patient still on aggressive vent settings but FiO2 has been titrated down to 90% Chest ultrasound shows only mild bilateral pleural effusions Status post Lasix IV x1 2. Septic shock secondary to pneumonia Continue vancomycin and aztreonam Pressors as needed 3. Hypothyroidism Continue home meds 4. Essential hypertension Hold home meds secondary to sepsis 5. History of osteoporosis No acute issues 6. Severe Ischemic Hepatopathy likely due to shock liver versus cardiorenal- improving Monitor Prophylaxis: Lovenox DC planning: Patient is currently requiring aggressive vent settings with an FiO2 at 90 %, patient with poor prognosis, have spoken to patient's son once again today and he understands patient's prognosis Result Diagram: 09/05/18 0435 09/05/18 0430 Results 24hrs Laboratory Tests Test 09/04/18 12:30 09/04/18 12:45 09/04/18 17:31 09/04/18 20:50 Blood Gas Specimen Blood arterial Source Arterial Blood 09/04/2018 12:36:20 Date Drawn PM Arterial Blood pH 7.410 (Temp corrected) Arterial Blood 47.9 H pCO2 (Temp correct) Arterial Blood pO2 81.0 (Temp corrected) Arterial Blood 29.7 H HCO3 Arterial Blood 4.2 H Base Excess Arterial Blood 95.5 Oxygen Saturation Yordan Test ACCEPTAB Arterial Blood Gas Right Radial Puncture Site Arterial 0.3 Blood Carboxyhemog lobin Arterial Blood 0.2 Methemoglobin Blood Gas A-a O2 366.6 H Differential Oxyhemoglobin 95.0 Percent Blood Gas 37.0 Temperature Blood Gas 14.0 Respiration Rate Blood Gas Actual 14 Respiration Rate Blood Gas Modality VENT - AC FiO2 70.0 Blood Gas Tidal 500.0 Volume Blood Gas Low PEEP 10.0 Setting Blood Gas Notified TM Whom Blood Gas Notified 09/04/2018 12:46:04 Time PM Bedside Glucose 101 71 91 Test 09/05/18 00:54 09/05/18 01:28 09/05/18 04:30 09/05/18 04:35 Bedside Glucose 70 Sodium Level 139 140 Potassium Level 4.2 4.0 Chloride Level 101 101 Carbon Dioxide 34 H 34 H Level Anion Gap 4 L 5 Blood Urea 11 10 Nitrogen Creatinine 0.52 0.46 Est Glomerular Filtrat Rate mL/min Glucose Level 84 102 Calcium Level 8.1 L 8.1 L Phosphorus Level 3.3 Magnesium Level 1.7 White Blood Count 8.6 Red Blood Count 3.39 L Hemoglobin 10.9 L Hematocrit 34.2 L Mean Corpuscular 100.9 Volume Mean Corpuscular 32.2 Hemoglobin Mean Corpuscular 31.9 L Hemoglobin Concent Red Cell 15.0 H Distribution Width Platelet Count 140 Mean Platelet 10.9 H Volume Immature 2.800 H Granulocytes % Neutrophils % 78.0 H Lymphocytes % 10.6 L Monocytes % 7.0 Eosinophils % 1.3 Basophils % 0.3 Nucleated Red 0.0 Blood Cells % Immature 0.240 H Granulocytes # Neutrophils # 6.7 Lymphocytes # 0.9 Monocytes # 0.6 Eosinophils # 0.1 Basophils # 0.0 Nucleated Red 0.0 Blood Cells # Test 09/05/18 05:41 09/05/18 08:26 Bedside Glucose 90 82 Subjective 24 Hr Interval Summary Subjective hx not possible: pt non-verbal Exam/Review of Systems Vital Signs Vitals Vital Signs Date Temp Pulse Resp B/P (MAP) Pulse Ox O2 O2 Flow FiO2 Time Delivery Rate 09/05/18 62 14 93/57 (69) 98 09:15 09/05/18 98.4 08:00 09/05/18 70 08:00 09/05/18 Mechanical 07:00 Ventilator Intake and Output 09/04/18 09/04/18 09/05/18 1515:00 23:00 07:00 IntakeIntake Total 1010.5 ml 929 ml 904.0 ml OutputOutput Total 1320 ml 820 ml 770 ml BalanceBalance -309.5 ml 109 ml 134.0 ml Exam Constitutional: non-verbal Respiratory: clear to auscultation Cardiovascular: regular rate and rhythm Gastrointestinal: soft; No distended Musculoskeletal: nl extremities to inspection Medications Medications Current Medications Sodium Chloride 1,000 ml @ 80 mls/hr [id number] IV Last administered on 09/04/18at 20:48; Admin Dose 80 MLS/HR; Start 08/29/18 at 21:57 Albuterol (Ventolin Hfa) 4 puff Q2H RESP THERAPY PRN INH SHORTNESS OF BREATH Last administered on 09/01/18 05:32; Admin Dose 4 PUFF; Start 08/29/18 at 22:00 Ipratropium [place] (Atrovent Hfa) 4 puff Q2H RESP THERAPY PRN INH SHORTNESS OF BREATH; Start 08/29/18 at 22:00 Acetaminophen (Tylenol Liquid) 650 mg Q6H PRN NGT PAIN LEVEL 1-3 OR FEVER; Start 08/29/18 at 22:00 Insulin Aspart (Novolog Insulin Pen) NOVOLOG *MILD* ALGORI... Q4 SC Last administered on 08/30/18at 08:13; Admin Dose 1 UNIT; Start 08/30/18 at 01:00 Levothyroxine Sodium (Synthroid Iv) 88 mcg DAILY@0700 IV Last administered on 09/05/18 06:10; Admin Dose 88 MCG; Start 08/30/18 at 07:00 Miscellaneous Information 1 ea NOTE XX ; Start 08/29/18 at 23:30 Glucose (Glutose) 15 gm Q15M PRN PO DECREASED GLUCOSE; Start 08/29/18 at 23:30 Glucose (Glutose) 22.5 gm Q15M PRN PO DECREASED GLUCOSE; Start 08/29/18 at 23:30 Dextrose (D50w Syringe) 25 ml Q15M PRN IV DECREASED GLUCOSE; Start 08/29/18 at 23:30 Dextrose (D50w Syringe) 50 ml Q15M PRN IV DECREASED GLUCOSE; Start 08/29/18 at 23:30 Glucagon (Glucagen) 1 mg Q15M PRN IM DECREASED GLUCOSE; Start 08/29/18 at 23:30 Glucose (Glutose) 15 gm Q15M PRN BUCCAL DECREASED GLUCOSE; Start 08/29/18 at 23:30 Fentanyl 100 ml @ 0.1 mls/hr TITRATE IV Last administered on 09/04/18 16:53; Admin Dose 1 MLS/HR; Start 08/30/18 at 02:00 Aztreonam 2 gm/ Sodium Chloride 100 ml @ 100 mls/hr Q12H IVPB Last administered on 09/05/18 05:42; Admin Dose 100 MLS/HR; Start 08/30/18 at 05:00 Vancomycin HCl (Vanco Iv Per Pharmacy) VANCOMYCIN PER PHARMACY PER PROTOCOL XX ; Start 08/30/18 at 04:30 Guaifenesin/ Dextromethorphan (Robitussin Dm Liquid Cup) 5 ml Q4H PRN PO cough; Start 08/30/18 at 13:00 Norepinephrine 250 ml @ 1.875 mls/ hr TITRATE IV Last administered on 09/01/18 00:57; Admin Dose 1.875 MLS/HR; Start 09/01/18 at 00:00 Phenylephrine HCl 250 ml @ 75 mls/hr TITRATE IV Last administered on 09/05/18 09:08; Admin Dose 15 MLS/HR; Start 09/01/18 at 01:30 Midazolam HCl 50 ml @ 1 mls/hr TITRATE IV Last administered on 09/04/18 20:48; Admin Dose 3 MLS/HR; Start 09/02/18 at 09:30 Lansoprazole (Prevacid) 30 mg DAILY@06 GTB Last administered on 09/05/18 05:43; Admin Dose 30 MG; Start 09/03/18 at 06:00 Vancomycin HCl 250 ml @ 125 mls/hr Q12H IVPB Last administered on 09/05/18 08:21; Admin Dose 125 MLS/HR; Start 09/04/18 at 08:00 Docusate Sodium (Colace Liquid Cup) 100 mg BID GTB Last administered on 09/05/18 08:21; Admin Dose 100 MG; Start 09/04/18 at 10:30 Enoxaparin Sodium (Lovenox) 65 mg Q12 SC Last administered on 09/05/18 08:23; Admin Dose 65 MG; Start 09/04/18 at 21:00 Magnesium Sulfate 100 ml @ 25 mls/hr ONCE ONCE IVPB Last administered on at 10:32; Admin Dose 25 MLS/HR; Start 09/05/18 at 10:30; Stop 09/05/18 at 14:29 ANA DAIMOND Sep 05, 2018 11:20
[2018-09-05] MEDS ORDERED: IOHEXOL 100 ML ONE (11:50)
[2018-09-05] MEDS ORDERED: SOD CHLORIDE 0.9% 100 ML ONE (11:50)
--- NOTE | 2018-09-05 12:00 | NUR ---
WENT TO CT SCAN WITH PT FOR CT ANGIOGRAM WITH RESPIRATORY THERAPIST.
--- NOTE | 2018-09-05 12:20 | NUR ---
Procedure Ordered: CTA CHEST ANGIO Reason for Exam Today: POSS PE Previous Exams: Allergies: Current Medications Taken: Glucophage ( ) Metformin ( ) Previous reaction to contrast media: Yes ( ) No ( X) : Yes ( ) No (X ) Asthma: Yes ( ) No ( X) Diabetes: Yes ( ) No ( X) Myeloma: Yes ( ) No (X ) Heart Disease: Yes ( X) No ( ) Cardiac Disease: Yes ( X) No ( ) Kidney Disease: Yes ( X) No ( ) Vascular Disease: Yes ( ) No ( X) Patient Teaching done: Yes (X ) No ( ) Preschool Special Education Teacher Used: Yes ( ) No ( X) Name of Preschool Special Education Teacher: Language Used: As part of the test requested by your doctor, contrast media may be injected into your vein while the x-rays are being taken. Occasionally, reactions from IV contrast may occur. The physician and staff of this hospital are trained to treat these reactions. Select the type of Contrast that will be given to patient: Omnipaque 300 ( ) Omnipaque 350 ( X) Visipaque 320 ( ) Cystografin ( ) Gastrographin ( ) Redi-cat ( ) Volumen ( ) Amount of contrast to be given: 100CC IV (X ) PO ( ) Date given: 09/05/18 Lab Values: BUN: 10 Creatinine: 0.46 eGFR: Reason why contrast cannot be given: Location of patient pre-procedure: ROOM 109 Location of patient post procedure:ROOM 109 Patient tolerated exam well and returned to unit.
--- NOTE | 2018-09-05 12:30 | NUR ---
RETUEN FROM CT SCAN PT TOLERATED WELL WITH NO DISTRESS OR DISCOMFORT
--- NOTE | 2018-09-05 12:30 | CONS ---
Date/Time of Note Date/Time of Note DATE: 09/05/18 TIME: 12:28 Assessment/Plan Assessment/Plan Assessment/Plan 1. Hypotension/shock, improved off of pressors at this time.-Back on pressors. EF 55% by echo this admit. Neg trop x 3 - on pressors stil - estefani to CT now 2. Respiratory failure status post intubation - con't resp care - not weaning now 3. Chronic obstructive pulmonary disease- pulmonary team follows 4. Lactic acidosis- with sepsis. 5. Hypothyroidism. 6. Increased liver function tests. 7. Hypotension-on yobani - con't Rx. 8. SVT-overnight to 170-180 reguar-TSH suppressed by labs but nl Free t4 - in sinus now. Result Diagram: 09/05/18 0435 09/05/18 0430 Results 24hrs Laboratory Tests Test 09/04/18 12:30 09/04/18 12:45 09/04/18 17:31 09/04/18 20:50 Blood Gas Specimen Blood arterial Source Arterial Blood 09/04/2018 12:36:20 Date Drawn PM Arterial Blood pH 7.410 (Temp corrected) Arterial Blood 47.9 H pCO2 (Temp correct) Arterial Blood pO2 81.0 (Temp corrected) Arterial Blood 29.7 H HCO3 Arterial Blood 4.2 H Base Excess Arterial Blood 95.5 Oxygen Saturation Yordan Test ACCEPTAB Arterial Blood Gas Right Radial Puncture Site Arterial 0.3 Blood Carboxyhemog lobin Arterial Blood 0.2 Methemoglobin Blood Gas A-a O2 366.6 H Differential Oxyhemoglobin 95.0 Percent Blood Gas 37.0 Temperature Blood Gas 14.0 Respiration Rate Blood Gas Actual 14 Respiration Rate Blood Gas Modality VENT - AC FiO2 70.0 Blood Gas Tidal 500.0 Volume Blood Gas Low PEEP 10.0 Setting Blood Gas Notified TM Whom Blood Gas Notified 09/04/2018 12:46:04 Time PM Bedside Glucose 101 71 91 Test 09/05/18 00:54 09/05/18 01:28 09/05/18 04:30 09/05/18 04:35 Bedside Glucose 70 Sodium Level 139 140 Potassium Level 4.2 4.0 Chloride Level 101 101 Carbon Dioxide 34 H 34 H Level Anion Gap 4 L 5 Blood Urea 11 10 Nitrogen Creatinine 0.52 0.46 Est Glomerular Filtrat Rate mL/min Glucose Level 84 102 Calcium Level 8.1 L 8.1 L Phosphorus Level 3.3 Magnesium Level 1.7 White Blood Count 8.6 Red Blood Count 3.39 L Hemoglobin 10.9 L Hematocrit 34.2 L Mean Corpuscular 100.9 Volume Mean Corpuscular 32.2 Hemoglobin Mean Corpuscular 31.9 L Hemoglobin Concent Red Cell 15.0 H Distribution Width Platelet Count 140 Mean Platelet 10.9 H Volume Immature 2.800 H Granulocytes % Neutrophils % 78.0 H Lymphocytes % 10.6 L Monocytes % 7.0 Eosinophils % 1.3 Basophils % 0.3 Nucleated Red 0.0 Blood Cells % Immature 0.240 H Granulocytes # Neutrophils # 6.7 Lymphocytes # 0.9 Monocytes # 0.6 Eosinophils # 0.1 Basophils # 0.0 Nucleated Red 0.0 Blood Cells # Test 09/05/18 05:41 09/05/18 08:26 Bedside Glucose 90 82 Consultation Date/Type/Reason Admit Date/Time Aug 29, 2018 at 22:04 Initial Consult Date 08/30/18 Requesting Provider: MARYLIN SERVIN MD 24 HR Interval Summary Free Text/Dictation NO acute events - still critically ill - with poor prognosis. per nurse: no Fevers, non-verbal, + SOB, mo diarrhea Exam/Review of Systems Vital Signs Vitals Vital Signs Date Temp Pulse Resp B/P (MAP) Pulse Ox O2 O2 Flow FiO2 Time Delivery Rate 09/05/18 62 14 93/57 (69) 98 09:15 09/05/18 98.4 08:00 09/05/18 70 08:00 09/05/18 Mechanical 07:00 Ventilator Intake and Output 09/04/18 09/04/18 09/05/18 1515:00 23:00 07:00 IntakeIntake Total 1010.5 ml 929 ml 1003.0 ml OutputOutput Total 1320 ml 820 ml 770 ml BalanceBalance -309.5 ml 109 ml 233.0 ml Exam General: WN/WD/NAD, AOx 0 HEENT: Unicetric/atraumatic/EOMI (does not follow commands) NECK: JVD elevated, no thyromegaly - intubated Lymph: no lymphadenopathy HEART: regular with no S3, II/ systolic murmur at apex LUNGS: Coarse sounds ABD: soft, NT, ND, +BS : Intact Neuro: non focal SKIN: chronic changes EXT: trace edema Medications Medications Current Medications Sodium Chloride 1,000 ml @ 80 mls/hr [id number] IV Last administered on 09/04/18 20:48; Admin Dose 80 MLS/HR; Start 08/29/18 at 21:57 Albuterol (Ventolin Hfa) 4 puff Q2H RESP THERAPY PRN INH SHORTNESS OF BREATH Last administered on 09/01/18 05:32; Admin Dose 4 PUFF; Start 08/29/18 at 22:00 Ipratropium [place] (Atrovent Hfa) 4 puff Q2H RESP THERAPY PRN INH SHORTNESS OF BREATH; Start 08/29/18 at 22:00 Acetaminophen (Tylenol Liquid) 650 mg Q6H PRN NGT PAIN LEVEL 1-3 OR FEVER; Start 08/29/18 at 22:00 Insulin Aspart (Novolog Insulin Pen) NOVOLOG *MILD* ALGORI... Q4 SC Last administered on 08/30/18at 08:13; Admin Dose 1 UNIT; Start 08/30/18 at 01:00 Levothyroxine Sodium (Synthroid Iv) 88 mcg DAILY@0700 IV Last administered on 09/05/18 06:10; Admin Dose 88 MCG; Start 08/30/18 at 07:00 Miscellaneous Information 1 ea NOTE XX ; Start 08/29/18 at 23:30 Glucose (Glutose) 15 gm Q15M PRN PO DECREASED GLUCOSE; Start 08/29/18 at 23:30 Glucose (Glutose) 22.5 gm Q15M PRN PO DECREASED GLUCOSE; Start 08/29/18 at 2 3:30 Dextrose (D50w Syringe) 25 ml Q15M PRN IV DECREASED GLUCOSE; Start 08/29/18 at 23:30 Dextrose (D50w Syringe) 50 ml Q15M PRN IV DECREASED GLUCOSE; Start 08/29/18 at 23:30 Glucagon (Glucagen) 1 mg Q15M PRN IM DECREASED GLUCOSE; Start 08/29/18 at 23:30 Glucose (Glutose) 15 gm Q15M PRN BUCCAL DECREASED GLUCOSE; Start 08/29/18 at 23:30 Fentanyl 100 ml @ 0.1 mls/hr TITRATE IV Last administered on 09/04/18 16:53; Admin Dose 1 MLS/HR; Start 08/30/18 at 02:00 Aztreonam 2 gm/ Sodium Chloride 100 ml @ 100 mls/hr Q12H IVPB Last administered on 09/05/18 05:42; Admin Dose 100 MLS/HR; Start 08/30/18 at 05:00 Vancomycin HCl (Vanco Iv Per Pharmacy) VANCOMYCIN PER PHARMACY PER PROTOCOL XX ; Start 08/30/18 at 04:30 Guaifenesin/ Dextromethorphan (Robitussin Dm Liquid Cup) 5 ml Q4H PRN PO cough; Start 08/30/18 at 13:00 Norepinephrine 250 ml @ 1.875 mls/ hr TITRATE IV Last administered on 09/01/18 00:57; Admin Dose 1.875 MLS/HR; Start 09/01/18 at 00:00 Phenylephrine HCl 250 ml @ 75 mls/hr TITRATE IV Last administered on 09/05/18 09:08; Admin Dose 15 MLS/HR; Start 09/01/18 at 01:30 Midazolam HCl 50 ml @ 1 mls/hr TITRATE IV Last administered on 09/04/18 20:48; Admin Dose 3 MLS/HR; Start 09/02/18 at 09:30 Lansoprazole (Prevacid) 30 mg DAILY@06 GTB Last administered on 09/05/18 05:43; Admin Dose 30 MG; Start 09/03/18 at 06:00 Vancomycin HCl 250 ml @ 125 mls/hr Q12H IVPB Last administered on 09/05/18 08:21; Admin Dose 125 MLS/HR; Start 09/04/18 at 08:00 Docusate Sodium (Colace Liquid Cup) 100 mg BID GTB Last administered on 09/05/18 08:21; Admin Dose 100 MG; Start 09/04/18 at 10:30 Enoxaparin Sodium (Lovenox) 65 mg Q12 SC Last administered on 09/05/18 08:23; Admin Dose 65 MG; Start 09/04/18 at 21:00 Magnesium Sulfate 100 ml @ 25 mls/hr ONCE ONCE IVPB Last administered on 09/05/18 10:32; Admin Dose 25 MLS/HR; Start 09/05/18 at 10:30; Stop 09/05/18 at 14:29 JAMES GARCIA MD Sep 05, 2018 12:30
--- NOTE | 2018-09-05 13:16 | CONS ---
Date/Time of Note Date/Time of Note DATE: 09/05/18 TIME: 13:07 Consult Date/Type/Reason Admit Date/Time Aug 29, 2018 at 22:04 Initial Consult Date 08/30/18 Type of Consultation: ICU Requesting Provider: MARYLIN SERVIN MD Subjective No events. CTA reviewed--shows no PE; B/L pleural effusions; LLL ATX; RLL consolidation. Objective Vital Signs Date Temp Pulse Resp B/P (MAP) Pulse Ox O2 O2 Flow FiO2 Time Delivery Rate 09/05/18 72 14 88/58 (68) 96 12:45 09/05/18 98.4 12:15 09/05/18 70 08:00 09/05/18 Mechanical 07:00 Ventilator Intake and Output 09/04/18 09/04/18 09/05/18 1515:00 23:00 07:00 IntakeIntake Total 1010.5 ml 929 ml 1003.0 ml OutputOutput Total 1320 ml 820 ml 770 ml BalanceBalance -309.5 ml 109 ml 233.0 ml Exam HEENT: Neck supple; no JVD; no LAD; + ET tube CVS: RRR, S1 and S2 CHEST: Clear ABD: Soft, NT, + BS EXT: No c/c: + edema NEURO: Sedated on the vent. Results/Medications Result Diagram: 09/05/18 0435 09/05/18 0430 Results 24 hrs Laboratory Tests Test 09/04/18 17:31 09/04/18 20:50 09/05/18 00:54 09/05/18 01:28 Bedside Glucose 71 91 70 Sodium Level 139 Potassium Level 4.2 Chloride Level 101 Carbon Dioxide Level 34 H Anion Gap 4 L Blood Urea Nitrogen 11 Creatinine 0.52 Est Glomerular Filtrat Rate mL/min Glucose Level 84 Calcium Level 8.1 L Phosphorus Level 3.3 Magnesium Level 1.7 Test 09/05/18 04:30 09/05/18 04:35 09/05/18 05:41 09/05/18 08:26 Sodium Level 140 Potassium Level 4.0 Chloride Level 101 Carbon Dioxide Level 34 H Anion Gap 5 Blood Urea Nitrogen 10 Creatinine 0.46 Est Glomerular Filtrat Rate mL/min Glucose Level 102 Calcium Level 8.1 L White Blood Count 8.6 Red Blood Count 3.39 L Hemoglobin 10.9 L Hematocrit 34.2 L Mean Corpuscular Volume 100.9 Mean Corpuscular 32.2 Hemoglobin Mean Corpuscular 31.9 L Hemoglobin Concent Red Cell Distribution 15.0 H Width Platelet Count 140 Mean Platelet Volume 10.9 H Immature Granulocytes % 2.800 H Neutrophils % 78.0 H Lymphocytes % 10.6 L Monocytes % 7.0 Eosinophils % 1.3 Basophils % 0.3 Nucleated Red Blood 0.0 Cells % Immature Granulocytes # 0.240 H Neutrophils # 6.7 Lymphocytes # 0.9 Monocytes # 0.6 Eosinophils # 0.1 Basophils # 0.0 Nucleated Red Blood 0.0 Cells # Bedside Glucose 90 82 Medications Current Medications Sodium Chloride 1,000 ml @ 80 mls/hr [id number] IV Last administered on 09/04/18 20:48; Admin Dose 80 MLS/HR; Start 08/29/18 at 21:57 Albuterol (Ventolin Hfa) 4 puff Q2H RESP THERAPY PRN INH SHORTNESS OF BREATH Last administered on 09/01/18 05:32; Admin Dose 4 PUFF; Start 08/29/18 at 22:00 Ipratropium [place] (Atrovent Hfa) 4 puff Q2H RESP THERAPY PRN INH SHORTNESS OF BREATH; Start 08/29/18 at 22:00 Acetaminophen (Tylenol Liquid) 650 mg Q6H PRN NGT PAIN LEVEL 1-3 OR FEVER; Start 08/29/18 at 22:00 Insulin Aspart (Novolog Insulin Pen) NOVOLOG *MILD* ALGORI... Q4 SC Last administered on 08/30/18at 08:13; Admin Dose 1 UNIT; Start 08/30/18 at 01:00 Levothyroxine Sodium (Synthroid Iv) 88 mcg DAILY@0700 IV Last administered on 09/05/18 06:10; Admin Dose 88 MCG; Start 08/30/18 at 07:00 Miscellaneous Information 1 ea NOTE XX ; Start 08/29/18 at 23:30 Glucose (Glutose) 15 gm Q15M PRN PO DECREASED GLUCOSE; Start 08/29/18 at 23:30 Glucose (Glutose) 22.5 gm Q15M PRN PO DECREASED GLUCOSE; Start 08/29/18 at 23:30 Dextrose (D50w Syringe) 25 ml Q15M PRN IV DECREASED GLUCOSE; Start 08/29/18 at 23:30 Dextrose (D50w Syringe) 50 ml Q15M PRN IV DECREASED GLUCOSE; Start 08/29/18 at 23:30 Glucagon (Glucagen) 1 mg Q15M PRN IM DECREASED GLUCOSE; Start 08/29/18 at 23:30 Glucose (Glutose) 15 gm Q15M PRN BUCCAL DECREASED GLUCOSE; Start 08/29/18 at 23:30 Fentanyl 100 ml @ 0.1 mls/hr TITRATE IV Last administered on 09/04/18 16:53; Admin Dose 1 MLS/HR; Start 08/30/18 at 02:00 Aztreonam 2 gm/ Sodium Chloride 100 ml @ 100 mls/hr Q12H IVPB Last administered on 09/05/18 05:42; Admin Dose 100 MLS/HR; Start 08/30/18 at 05:00 Vancomycin HCl (Vanco Iv Per Pharmacy) VANCOMYCIN PER PHARMACY PER PROTOCOL XX ; Start 08/30/18 at 04:30 Guaifenesin/ Dextromethorphan (Robitussin Dm Liquid Cup) 5 ml Q4H PRN PO cough; Start 08/30/18 at 13:00 Norepinephrine 250 ml @ 1.875 mls/ hr TITRATE IV Last administered on 09/01/18 00:57; Admin Dose 1.875 MLS/HR; Start 09/01/18 at 00:00 Phenylephrine HCl 250 ml @ 75 mls/hr TITRATE IV Last administered on 09/05/18 09:08; Admin Dose 15 MLS/HR; Start 09/01/18 at 01:30 Midazolam HCl 50 ml @ 1 mls/hr TITRATE IV Last administered on 09/04/18 20:48; Admin Dose 3 MLS/HR; Start 09/02/18 at 09:30 Lansoprazole (Prevacid) 30 mg DAILY@06 GTB Last administered on 09/05/18 05:43; Admin Dose 30 MG; Start 09/03/18 at 06:00 Vancomycin HCl 250 ml @ 125 mls/hr Q12H IVPB Last administered on 09/05/18 08:21; Admin Dose 125 MLS/HR; Start 09/04/18 at 08:00 Docusate Sodium (Colace Liquid Cup) 100 mg BID GTB Last administered on 09/05/18 08:21; Admin Dose 100 MG; Start 09/04/18 at 10:30 Enoxaparin Sodium (Lovenox) 65 mg Q12 SC Last administered on 09/05/18at 08:23; Admin Dose 65 MG; Start 09/04/18 at 21:00 Magnesium Sulfate 100 ml @ 25 mls/hr ONCE ONCE IVPB Last administered on 09/05/18at 10:32; Admin Dose 25 MLS/HR; Start 09/05/18 at 10:30; Stop 09/05/18 at 14:29 Assessment/Plan Chief Complaint/Hosp Course In brief, this is an 78-year-old female resident of a SNF with history of COPD, chronic CO2 retention, hypothyroidism, who was admitted to the ICU after presenting with AMS and respiratory distress requiring intubation and transient vasopressor requirement. Unfortunately, there is no one to provide additional history. Additional Assessment/Plan IMP: 1. Acute hypoxemic and hypercapnic on chronic respiratory failure 2. Septic shock 3. Ischemic Hepatopathy 4. Hypothyroidism 5. Anemia 6. FEN RECS: 1. Titrate PEEP to 8 cm H20; FiO2 as tolerated 2. Continue Abx 3. Titrate pressors as tolerated 4. Am CXR/ABG 5. CPT/suctioning 40 min cc time DIAMANTE HARP MD Sep 05, 2018 13:16
[2018-09-05] MEDS: MIDAZOLAM (DRIP) 50 mg/50 mL 50 ML IV SCH (17:08)
--- NOTE | 2018-09-05 19:21 | NUR ---
EOSS PT IN BED INTUBATED AND SEDATED WITH FENTANYL AND VERSED. PT OPEN EYES OFF SEDATION BUT DOES NOT FOLLOW. PT ALSO ON NEOSYNEPHRINE AT 17 MCGS. PT NOW CHEMICAL CODES. PT'S CARMEN MEET AND HAD A DISCUSSION WITH DR OH ABOUT PLAN OF CARE AND FURTHER DECISIONS TO COME. PT STABLE WITH NO SIGN OF DISTRESS OR DISCOMFORT. CARE GIVEN PER PROTOCOL
[2018-09-06] VITALS (82 sets, daily range): BP systolic 89–133; BP diastolic 18–82; PULSE 77–100; RESP 14–21
[2018-09-06] MEDS: INSULIN ASPART [NOVOLOG] 3 ML PEN SC SCH ×6 (01:00→20:39)
[2018-09-06] MEDS: PHENYLephrine 20MG IN 250 ML 250 ML IV SCH (05:08)
[2018-09-06] MEDS: AZTREONAM 2 GM in SOD CHLORIDE 0.9% 100 ML IVPB SCH ×2 (05:11→16:41)
[2018-09-06] MEDS: LANSOPRAZOLE 30 MG CAP GTB SCH (05:18)
--- NOTE | 2018-09-06 06:30 | NUR ---
End of shift.Received sedated pt response to pain stimuli.open eyes follow no command.Pt remain on versed and fentanyl low dose.Tube feeding in progress tolerating well.Vent setting fio2 titrated to 40% o2 sat >95%.Norsynephrine titrated off will continue to monitor.Pt made comfortable CHG bath done.Nj to BS with adequate amount of urine.
--- NOTE | 2018-09-06 07:37 | NUR ---
VANCOMYCIN PER PHARMACY NOTE VANCO TR = 15.0 PLEASE CONTINUE VANCOMYCIN 1 GRAM IV Q12 HOURS FOR NOW. PHARMACY WILL FOLLOW. THANK YOU.
[2018-09-06] MEDS: LEVOTHYROXINE 100 MCG VIAL IV SCH (08:00)
[2018-09-06] MEDS: SOD CHLORIDE 0.9% 1,000 ML IV SCH (08:00)
[2018-09-06] MEDS: DOCUSATE SODIUM 10 MG/ML (10ML CUP) GTB SCH ×2 (08:20→20:38)
[2018-09-06] MEDS: VANCOMYCIN 1 GM 250 ML IVPB SCH (08:20)
[2018-09-06] MEDS: ENOXAPARIN 80 MG/0.8 ML SYG SC SCH ×2 (08:26→20:44)
--- NOTE | 2018-09-06 11:02 | CONS ---
Date/Time of Note Date/Time of Note DATE: 09/06/18 TIME: 10:58 Consult Date/Type/Reason Admit Date/Time Aug 29, 2018 at 22:04 Initial Consult Date 08/30/18 Type of Consultation: ICU Requesting Provider: MARYLIN SERVIN MD Subjective Overall much improved. Decreased FiO2 requirements and now off pressors. Objective Vital Signs Date Temp Pulse Resp B/P (MAP) Pulse Ox O2 O2 Flow FiO2 Time Delivery Rate 09/06/18 92 15 111/54 93 Mechanical 10:15 (73) Ventilator 09/06/18 97.8 08:00 09/06/18 45 08:00 Intake and Output 09/05/18 09/05/18 09/06/18 1515:00 23:00 07:00 IntakeIntake Total 1260.5 ml 1066.25 ml 1205.3 ml OutputOutput Total 700 ml 925 ml 700 ml BalanceBalance 560.5 ml 141.25 ml 505.3 ml Exam HEENT: Neck supple; no JVD; no LAD; + ET tube CVS: RRR, S1 and S2 CHEST: Clear ABD: Soft, NT, + BS EXT: No c/c: + edema NEURO: Sedated on the vent. Results/Medications Result Diagram: 09/06/18 0400 09/06/18 0400 Results 24 hrs Laboratory Tests Test 09/05/18 13:21 09/05/18 17:02 09/05/18 18:50 09/05/18 21:42 Bedside Glucose 85 95 130 Vancomycin Level 15.0 Trough Test 09/06/18 01:13 09/06/18 04:00 09/06/18 05:00 09/06/18 05:15 Bedside Glucose 123 129 White Blood Count 8.3 Red Blood Count 3.35 L Hemoglobin 10.7 L Hematocrit 33.6 L Mean Corpuscular 100.3 Volume Mean Corpuscular 31.9 Hemoglobin Mean Corpuscular 31.8 L Hemoglobin Concent Red Cell 15.1 H Distribution Width Platelet Count 135 L Mean Platelet 11.5 H Volume Immature 2.200 H Granulocytes % Neutrophils % 82.1 H Lymphocytes % 7.5 L Monocytes % 7.4 Eosinophils % 0.6 Basophils % 0.2 Nucleated Red 0.0 Blood Cells % Immature 0.180 H Granulocytes # Neutrophils # 6.8 Lymphocytes # 0.6 L Monocytes # 0.6 Eosinophils # 0.1 Basophils # 0.0 Nucleated Red 0.0 Blood Cells # Sodium Level 139 Potassium Level 4.0 Chloride Level 104 Carbon Dioxide 33 H Level Anion Gap 2 L Blood Urea 10 Nitrogen Creatinine 0.48 Est Glomerular Filtrat Rate mL/min Glucose Level 122 Lactic Acid Level 1.1 Calcium Level 8.1 L Blood Gas Specimen Blood arterial Source Arterial Blood 09/06/2018 4:30:47 Date Drawn AM Arterial Blood pH 7.483 H (Temp corrected) Arterial Blood 41.1 pCO2 (Temp correct) Arterial Blood pO2 76.7 L (Temp corrected) Arterial Blood 30.1 H HCO3 Arterial Blood 6.1 H Base Excess Arterial Blood 96.2 Oxygen Saturation Yordan Test ACCEPTAB Arterial Blood Gas Right Radial Puncture Site Arterial 0.7 Blood Carboxyhemog lobin Arterial Blood 0.3 Methemoglobin Blood Gas A-a O2 161.2 H Differential Oxyhemoglobin 95.2 Percent Blood Gas 37.0 Temperature Blood Gas 14.0 Respiration Rate Blood Gas Actual 16 Respiration Rate Blood Gas Modality VENT - AC FiO2 40.0 Blood Gas Tidal 450.0 Volume Blood Gas Low PEEP 8.0 Setting Blood Gas 28.0 Inspiratory Pressure Blood Gas Notified KM Whom Blood Gas Notified 09/06/2018 4:45:50 Time AM Test 09/06/18 08:28 Bedside Glucose 132 Medications Current Medications Sodium Chloride 1,000 ml @ 80 mls/hr [id number] IV Last administered on 09/06/18 08:00; Admin Dose 80 MLS/HR; Start 08/29/18 at 21:57 Albuterol (Ventolin Hfa) 4 puff Q2H RESP THERAPY PRN INH SHORTNESS OF BREATH Last administered on 09/01/18 05:32; Admin Dose 4 PUFF; Start 08/29/18 at 22:00 Ipratropium [place] (Atrovent Hfa) 4 puff Q2H RESP THERAPY PRN INH SHORTNESS OF BREATH; Start 08/29/18 at 22:00 Acetaminophen (Tylenol Liquid) 650 mg Q6H PRN NGT PAIN LEVEL 1-3 OR FEVER; Start 08/29/18 at 22:00 Insulin Aspart (Novolog Insulin Pen) NOVOLOG *MILD* ALGORI... Q4 SC Last administered on 08/30/18at 08:13; Admin Dose 1 UNIT; Start 08/30/18 at 01:00 Levothyroxine Sodium (Synthroid Iv) 88 mcg DAILY@0700 IV Last administered on 09/06/18 08:00; Admin Dose 88 MCG; Start 08/30/18 at 07:00 Miscellaneous Information 1 ea NOTE XX ; Start 08/29/18 at 23:30 Glucose (Glutose) 15 gm Q15M PRN PO DECREASED GLUCOSE; Start 08/29/18 at 23:30 Glucose (Glutose) 22.5 gm Q15M PRN PO DECREASED GLUCOSE; Start 08/29/18 at 23:30 Dextrose (D50w Syringe) 25 ml Q15M PRN IV DECREASED GLUCOSE; Start 08/29/18 at 23:30 Dextrose (D50w Syringe) 50 ml Q15M PRN IV DECREASED GLUCOSE; Start 08/29/18 at 23:30 Glucagon (Glucagen) 1 mg Q15M PRN IM DECREASED GLUCOSE; Start 08/29/18 at 23:30 Glucose (Glutose) 15 gm Q15M PRN BUCCAL DECREASED GLUCOSE; Start 08/29/18 at 23:30 Fentanyl 100 ml @ 0.1 mls/hr TITRATE IV Last administered on 09/04/18 16:53; Admin Dose 1 MLS/HR; Start 08/30/18 at 02:00 Aztreonam 2 gm/ Sodium Chloride 100 ml @ 100 mls/hr Q12H IVPB Last administered on 09/06/18 05:11; Admin Dose 100 MLS/HR; Start 08/30/18 at 05:00 Vancomycin HCl (Vanco Iv Per Pharmacy) VANCOMYCIN PER PHARMACY PER PROTOCOL XX ; Start 08/30/18 at 04:30 Guaifenesin/ Dextromethorphan (Robitussin Dm Liquid Cup) 5 ml Q4H PRN PO cough; Start 08/30/18 at 13:00 Norepinephrine 250 ml @ 1.875 mls/ hr TITRATE IV Last administered on 09/01/18 00:57; Admin Dose 1.875 MLS/HR; Start 09/01/18 at 00:00 Phenylephrine HCl 250 ml @ 75 mls/hr TITRATE IV Last administered on 09/06/18 05:08; Admin Dose 9 MLS/HR; Start 09/01/18 at 01:30 Midazolam HCl 50 ml @ 1 mls/hr TITRATE IV Last administered on 09/05/18 17:08; Admin Dose 2 MLS/HR; Start 09/02/18 at 09:30 Lansoprazole (Prevacid) 30 mg DAILY@06 GTB Last administered on 09/06/18 05:18; Admin Dose 30 MG; Start 09/03/18 at 06:00 Vancomycin HCl 250 ml @ 125 mls/hr Q12H IVPB Last administered on 09/06/18 08:20; Admin Dose 125 MLS/HR; Start 09/04/18 at 08:00 Docusate Sodium (Colace Liquid Cup) 100 mg BID GTB Last administered on 09/06/18 08:20; Admin Dose 100 MG; Start 09/04/18 at 10:30 Enoxaparin Sodium (Lovenox) 65 mg Q12 SC Last administered on 09/06/18 08:26; Admin Dose 65 MG; Start 09/04/18 at 21:00 Assessment/Plan Chief Complaint/Hosp Course In brief, this is an 78-year-old female resident of a SNF with history of COPD, chronic CO2 retention, hypothyroidism, who was admitted to the ICU after presenting with AMS and respiratory distress requiring intubation and transient vasopressor requirement. Unfortunately, there is no one to provide additional history. Additional Assessment/Plan IMP: 1. Acute hypoxemic and hypercapnic on chronic respiratory failure 2. Septic shock 3. Ischemic Hepatopathy 4. Hypothyroidism 5. Anemia 6. FEN RECS: 1. De-escalate Abx--> D/C vanco 2. Vent--> decrease PEEP 3. D/C IVFs 4. Lasix 20 mg IV daily 5. D/C versed gtt 40 min cc time DIAMANTE HARP MD Sep 06, 2018 11:02
[2018-09-06] MEDS: FUROSEMIDE 20 MG INJ IV SCH (12:16)
--- NOTE | 2018-09-06 12:59 | CONS ---
Date/Time of Note Date/Time of Note DATE: 09/06/18 TIME: 12:57 Assessment/Plan Assessment/Plan Result Diagram: 09/06/18 0400 09/06/18 0400 Results 24hrs 1. Hypotension/shock, improved off of pressors at this time.-Back on pressors. EF 55% by echo this admit. Neg trop x 3 - better now, off pressors - planned for [place] transfer 2. Respiratory failure status post intubation - con't resp care - not weaning now - con't resp Rx 3. Chronic obstructive pulmonary disease- pulmonary team follows 4. Lactic acidosis- with sepsis.- improved with anti-bx 5. Hypothyroidism. 6. Increased liver function tests. 7. Hypotension-on yobani - con't Rx. 8. SVT-overnight to 170-180 reguar-TSH suppressed by labs but nl Free t4 - in sinus now - rate controlled now Laboratory Tests Test 09/05/18 13:21 09/05/18 17:02 09/05/18 18:50 09/05/18 21:42 Bedside Glucose 85 95 130 Vancomycin Level 15.0 Trough Test 09/06/18 01:13 09/06/18 04:00 09/06/18 05:00 09/06/18 05:15 Bedside Glucose 123 129 White Blood Count 8.3 Red Blood Count 3.35 L Hemoglobin 10.7 L Hematocrit 33.6 L Mean Corpuscular 100.3 Volume Mean Corpuscular 31.9 Hemoglobin Mean Corpuscular 31.8 L Hemoglobin Concent Red Cell 15.1 H Distribution Width Platelet Count 135 L Mean Platelet 11.5 H Volume Immature 2.200 H Granulocytes % Neutrophils % 82.1 H Lymphocytes % 7.5 L Monocytes % 7.4 Eosinophils % 0.6 Basophils % 0.2 Nucleated Red 0.0 Blood Cells % Immature 0.180 H Granulocytes # Neutrophils # 6.8 Lymphocytes # 0.6 L Monocytes # 0.6 Eosinophils # 0.1 Basophils # 0.0 Nucleated Red 0.0 Blood Cells # Sodium Level 139 Potassium Level 4.0 Chloride Level 104 Carbon Dioxide 33 H Level Anion Gap 2 L Blood Urea 10 Nitrogen Creatinine 0.48 Est Glomerular Filtrat Rate mL/min Glucose Level 122 Lactic Acid Level 1.1 Calcium Level 8.1 L Blood Gas Specimen Blood arterial Source Arterial Blood 09/06/2018 4:30:47 Date Drawn AM Arterial Blood pH 7.483 H (Temp corrected) Arterial Blood 41.1 pCO2 (Temp correct) Arterial Blood pO2 76.7 L (Temp corrected) Arterial Blood 30.1 H HCO3 Arterial Blood 6.1 H Base Excess Arterial Blood 96.2 Oxygen Saturation Yordan Test ACCEPTAB Arterial Blood Gas Right Radial Puncture Site Arterial 0.7 Blood Carboxyhemog lobin Arterial Blood 0.3 Methemoglobin Blood Gas A-a O2 161.2 H Differential Oxyhemoglobin 95.2 Percent Blood Gas 37.0 Temperature Blood Gas 14.0 Respiration Rate Blood Gas Actual 16 Respiration Rate Blood Gas Modality VENT - AC FiO2 40.0 Blood Gas Tidal 450.0 Volume Blood Gas Low PEEP 8.0 Setting Blood Gas 28.0 Inspiratory Pressure Blood Gas Notified KM Whom Blood Gas Notified 09/06/2018 4:45:50 Time AM Test 09/06/18 08:28 09/06/18 12:21 Bedside Glucose 132 134 Consultation Date/Type/Reason Admit Date/Time Aug 29, 2018 at 22:04 Initial Consult Date 08/30/18 Requesting Provider: MARYLIN SERVIN MD 24 HR Interval Summary Free Text/Dictation Better now, of pressors - planned for [place] transfer Per nurse + SOB, no F/C/N/V Exam/Review of Systems Vital Signs Vitals Vital Signs Date Temp Pulse Resp B/P (MAP) Pulse Ox O2 O2 Flow FiO2 Time Delivery Rate 09/06/18 87 16 96/50 (65) 95 Mechanical 12:30 Ventilator 09/06/18 97.8 12:00 09/06/18 45 08:00 Intake and Output 09/05/18 09/05/18 09/06/18 1515:00 23:00 07:00 IntakeIntake Total 1260.5 ml 1066.25 ml 1205.3 ml OutputOutput Total 700 ml 925 ml 700 ml BalanceBalance 560.5 ml 141.25 ml 505.3 ml Exam General: WN/WD/NAD, AOx 0 HEENT: Unicetric/atraumatic/EOMI (does not follow commands) NECK: JVD elevated, no thyromegaly - intubated Lymph: no lymphadenopathy HEART: regular with no S3, II/ systolic murmur at apex LUNGS: Coarse sounds ABD: soft, NT, ND, +BS : Intact Neuro: non focal SKIN: chronic changes EXT: trace edema Medications Medications Current Medications Albuterol (Ventolin Hfa) 4 puff Q2H RESP THERAPY PRN INH SHORTNESS OF BREATH Last administered on 09/01/18 05:32; Admin Dose 4 PUFF; Start 08/29/18 at 22:00 Ipratropium [place] (Atrovent Hfa) 4 puff Q2H RESP THERAPY PRN INH SHORTNESS OF BREATH; Start 08/29/18 at 22:00 Acetaminophen (Tylenol Liquid) 650 mg Q6H PRN NGT PAIN LEVEL 1-3 OR FEVER; Start 08/29/18 at 22:00 Insulin Aspart (Novolog Insulin Pen) NOVOLOG *MILD* ALGORI... Q4 SC Last administered on 08/30/18at 08:13; Admin Dose 1 UNIT; Start 08/30/18 at 01:00 Levothyroxine Sodium (Synthroid Iv) 88 mcg DAILY@0700 IV Last administered on 09/06/18 08:00; Admin Dose 88 MCG; Start 08/30/18 at 07:00 Miscellaneous Information 1 ea NOTE XX ; Start 08/29/18 at 23:30 Glucose (Glutose) 15 gm Q15M PRN PO DECREASED GLUCOSE; Start 08/29/18 at 23:30 Glucose (Glutose) 22.5 gm Q15M PRN PO DECREASED GLUCOSE; Start 08/29/18 at 23:30 Dextrose (D50w Syringe) 25 ml Q15M PRN IV DECREASED GLUCOSE; Start 08/29/18 at 23:30 Dextrose (D50w Syringe) 50 ml Q15M PRN IV DECREASED GLUCOSE; Start 08/29/18 at 23:30 Glucagon (Glucagen) 1 mg Q15M PRN IM DECREASED GLUCOSE; Start 08/29/18 at 23:30 Glucose (Glutose) 15 gm Q15M PRN BUCCAL DECREASED GLUCOSE; Start 08/29/18 at 23:30 Fentanyl 100 ml @ 0.1 mls/hr TITRATE IV Last administered on 09/04/18 16:53; Admin Dose 1 MLS/HR; Start 08/30/18 at 02:00 Aztreonam 2 gm/ Sodium Chloride 100 ml @ 100 mls/hr Q12H IVPB Last administered on 09/06/18 05:11; Admin Dose 100 MLS/HR; Start 08/30/18 at 05:00 Guaifenesin/ Dextromethorphan (Robitussin Dm Liquid Cup) 5 ml Q4H PRN PO cough; Start 08/30/18 at 13:00 Norepinephrine 250 ml @ 1.875 mls/ hr TITRATE IV Last administered on 09/01/18at 00:57; Admin Dose 1.875 MLS/HR; Start 09/01/18 at 00:00 Phenylephrine HCl 250 ml @ 75 mls/hr TITRATE IV Last administered on 09/06/18 05:08; Admin Dose 9 MLS/HR; Start 09/01/18 at 01:30 Lansoprazole (Prevacid) 30 mg DAILY@06 GTB Last administered on 09/06/18 05:18; Admin Dose 30 MG; Start 09/03/18 at 06:00 Docusate Sodium (Colace Liquid Cup) 100 mg BID GTB Last administered on 09/06/18 08:20; Admin Dose 100 MG; Start 09/04/18 at 10:30 Enoxaparin Sodium (Lovenox) 65 mg Q12 SC Last administered on 09/06/18 08:26; Admin Dose 65 MG; Start 09/04/18 at 21:00 Furosemide (Lasix) 20 mg DAILY IV Last administered on 09/06/18 12:16; Admin Dose 20 MG; Start 09/06/18 at 11:00 JAMES GARCIA MD Sep 06, 2018 12:59
--- NOTE | 2018-09-06 15:01 | NUR ---
CM NOTES: T/C AND S/[facility] [phone] ABOUT THE TRANSFER. THIS CM WAS TOLD [facility] APPROVED ANOTHER DAY IN THIS HOSPITAL. A CM WILL NEED TO FOLLOW UP AGAIN TOMORROW. SUZIE CARRIZALES LEAD CM [phone]
--- NOTE | 2018-09-06 16:00 | NUR ---
Family (pt's son) is updated regarding plan of care, possible prognosis, diagnosis by RN, RIAZ Juarez, [employer] Manager Edita. Arnold telephonic nurse case manager is ok to keep pt in [facility] for another day per Solution Design And Analysis Manager Edita. Pt is off levo ggt and versed since 0800 09.06.18.
--- NOTE | 2018-09-06 16:26 | PN ---
Date/Time of Note Date/Time of Note DATE: 09/06/18 TIME: 16:25 Assessment/Plan VTE Prophylaxis Risk score (from [facility]0 risk: 14 SCD applied (from [facility]): Yes Pharmacological prophylaxis: LMWH Assessment/Plan Hospital Course 1. Acute hypoxemic and hypercapnic on chronic respiratory failure secondary to pneumonia on COPD Continue vent support, is improving and FiO2 has been titrated down to 40% Chest ultrasound shows only mild bilateral pleural effusions Status post Lasix IV x1 2. Septic shock secondary to pneumonia Continue vancomycin and aztreonam Now off pressors, monitor BP 3. Hypothyroidism Continue home meds 4. Essential hypertension Hold home meds secondary to sepsis 5. History of osteoporosis No acute issues 6. Severe Ischemic Hepatopathy likely due to shock liver versus cardiorenal- improving Monitor Prophylaxis: Lovenox DC planning: Patient has improved and FiO2 has been titrated down to 40%, patient taken off pressors today and BP has stabilized, anticipate transfer to [place] tomorrow as long as patient is off pressors and FiO2 is below 50% Result Diagram: 09/06/18 0400 09/06/18 0400 Results 24hrs Laboratory Tests Test 09/05/18 17:02 09/05/18 18:50 09/05/18 21:42 09/06/18 01:13 Bedside Glucose 95 130 123 Vancomycin Level 15.0 Trough Test 09/06/18 04:00 09/06/18 05:00 09/06/18 05:15 09/06/18 08:28 White Blood Count 8.3 Red Blood Count 3.35 L Hemoglobin 10.7 L Hematocrit 33.6 L Mean Corpuscular 100.3 Volume Mean Corpuscular 31.9 Hemoglobin Mean Corpuscular 31.8 L Hemoglobin Concent Red Cell 15.1 H Distribution Width Platelet Count 135 L Mean Platelet 11.5 H Volume Immature 2.200 H Granulocytes % Neutrophils % 82.1 H Lymphocytes % 7.5 L Monocytes % 7.4 Eosinophils % 0.6 Basophils % 0.2 Nucleated Red 0.0 Blood Cells % Immature 0.180 H Granulocytes # Neutrophils # 6.8 Lymphocytes # 0.6 L Monocytes # 0.6 Eosinophils # 0.1 Basophils # 0.0 Nucleated Red 0.0 Blood Cells # Sodium Level 139 Potassium Level 4.0 Chloride Level 104 Carbon Dioxide 33 H Level Anion Gap 2 L Blood Urea 10 Nitrogen Creatinine 0.48 Est Glomerular Filtrat Rate mL/min Glucose Level 122 Lactic Acid Level 1.1 Calcium Level 8.1 L Blood Gas Specimen Blood arterial Source Arterial Blood 09/06/2018 4:30:47 Date Drawn AM Arterial Blood pH 7.483 H (Temp corrected) Arterial Blood 41.1 pCO2 (Temp correct) Arterial Blood pO2 76.7 L (Temp corrected) Arterial Blood 30.1 H HCO3 Arterial Blood 6.1 H Base Excess Arterial Blood 96.2 Oxygen Saturation Yordan Test ACCEPTAB Arterial Blood Gas Right Radial Puncture Site Arterial 0.7 Blood Carboxyhemog lobin Arterial Blood 0.3 Methemoglobin Blood Gas A-a O2 161.2 H Differential Oxyhemoglobin 95.2 Percent Blood Gas 37.0 Temperature Blood Gas 14.0 Respiration Rate Blood Gas Actual 16 Respiration Rate Blood Gas Modality VENT - AC FiO2 40.0 Blood Gas Tidal 450.0 Volume Blood Gas Low PEEP 8.0 Setting Blood Gas 28.0 Inspiratory Pressure Blood Gas Notified KM Whom Blood Gas Notified 09/06/2018 4:45:50 Time AM Bedside Glucose 129 132 Test 09/06/18 12:21 Bedside Glucose 134 Subjective 24 Hr Interval Summary Subjective hx not possible: pt non-verbal Exam/Review of Systems Vital Signs Vitals Vital Signs Date Temp Pulse Resp B/P (MAP) Pulse Ox O2 O2 Flow FiO2 Time Delivery Rate 09/06/18 84 14 102/62 94 Mechanical 15:45 (75) Ventilator 09/06/18 40 13:30 09/06/18 97.8 12:00 Intake and Output 09/05/18 09/05/18 09/06/18 1515:00 23:00 07:00 IntakeIntake Total 1260.5 ml 1066.25 ml 1205.3 ml OutputOutput Total 700 ml 925 ml 700 ml BalanceBalance 560.5 ml 141.25 ml 505.3 ml Exam Constitutional: non-verbal ENMT: intubated Respiratory: clear to auscultation Cardiovascular: regular rate and rhythm Gastrointestinal: soft; No distended Musculoskeletal: nl extremities to inspection Medications Medications Current Medications Albuterol (Ventolin Hfa) 4 puff Q2H RESP THERAPY PRN INH SHORTNESS OF BREATH Last administered on 09/01/18at 05:32; Admin Dose 4 PUFF; Start 08/29/18 at 22:00 Ipratropium [place] (Atrovent Hfa) 4 puff Q2H RESP THERAPY PRN INH SHORTNESS OF BREATH; Start 08/29/18 at 22:00 Acetaminophen (Tylenol Liquid) 650 mg Q6H PRN NGT PAIN LEVEL 1-3 OR FEVER; Start 08/29/18 at 22:00 Insulin Aspart (Novolog Insulin Pen) NOVOLOG *MILD* ALGORI... Q4 SC Last administered on 08/30/18at 08:13; Admin Dose 1 UNIT; Start 08/30/18 at 01:00 Levothyroxine Sodium (Synthroid Iv) 88 mcg DAILY@0700 IV Last administered on 09/06/18 08:00; Admin Dose 88 MCG; Start 08/30/18 at 07:00 Miscellaneous Information 1 ea NOTE XX ; Start 08/29/18 at 23:30 Glucose (Glutose) 15 gm Q15M PRN PO DECREASED GLUCOSE; Start 08/29/18 at 23:30 Glucose (Glutose) 22.5 gm Q15M PRN PO DECREASED GLUCOSE; Start 08/29/18 at 23:30 Dextrose (D50w Syringe) 25 ml Q15M PRN IV DECREASED GLUCOSE; Start 08/29/18 at 23:30 Dextrose (D50w Syringe) 50 ml Q15M PRN IV DECREASED GLUCOSE; Start 08/29/18 at 23:30 Glucagon (Glucagen) 1 mg Q15M PRN IM DECREASED GLUCOSE; Start 08/29/18 at 23:30 Glucose (Glutose) 15 gm Q15M PRN BUCCAL DECREASED GLUCOSE; Start 08/29/18 at 23:30 Fentanyl 100 ml @ 0.1 mls/hr TITRATE IV Last administered on 09/04/18 16:53; Admin Dose 1 MLS/HR; Start 08/30/18 at 02:00 Aztreonam 2 gm/ Sodium Chloride 100 ml @ 100 mls/hr Q12H IVPB Last administered on 09/06/18 05:11; Admin Dose 100 MLS/HR; Start 08/30/18 at 05:00 Guaifenesin/ Dextromethorphan (Robitussin Dm Liquid Cup) 5 ml Q4H PRN PO cough; Start 08/30/18 at 13:00 Norepinephrine 250 ml @ 1.875 mls/ hr TITRATE IV Last administered on 09/01/18 00:57; Admin Dose 1.875 MLS/HR; Start 09/01/18 at 00:00 Phenylephrine HCl 250 ml @ 75 mls/hr TITRATE IV Last administered on 09/06/18 05:08; Admin Dose 9 MLS/HR; Start 09/01/18 at 01:30 Lansoprazole (Prevacid) 30 mg DAILY@06 GTB Last administered on 09/06/18 05:18; Admin Dose 30 MG; Start 09/03/18 at 06:00 Docusate Sodium (Colace Liquid Cup) 100 mg BID GTB Last administered on 09/06/18at 08:20; Admin Dose 100 MG; Start 09/04/18 at 10:30 Enoxaparin Sodium (Lovenox) 65 mg Q12 SC Last administered on 09/06/18at 08:26; Admin Dose 65 MG; Start 09/04/18 at 21:00 Furosemide (Lasix) 20 mg DAILY IV Last administered on 09/06/18at 12:16; Admin Dose 20 MG; Start 09/06/18 at 11:00 ANA DIAMOND Sep 06, 2018 16:26
[2018-09-07] VITALS (91 sets, daily range): BP systolic 64–160; BP diastolic 27–97; PULSE 58–119; RESP 14–46
[2018-09-07] MEDS: INSULIN ASPART [NOVOLOG] 3 ML PEN SC SCH ×6 (01:00→21:00)
[2018-09-07] MEDS: AZTREONAM 2 GM in SOD CHLORIDE 0.9% 100 ML IVPB SCH ×2 (05:27→18:36)
[2018-09-07] MEDS: LANSOPRAZOLE 30 MG CAP GTB SCH (05:34)
--- NOTE | 2018-09-07 07:48 | NUR ---
EOSS: Pt. was doing well most of the night until approximately 0400. At 0400 after pt. was repositioned pt. desaturated into 70's, RN's and RT at bedside. Pt. was suctioned, tube feedings were stopped at this time due to pts. saturations not coming up and worried about risk of aspiration when not knowing what exactly causing pt. to become unstable. Pt. began to get SOB and tachycardic at a rate of 118. Eventually RTs were able to suction out a mucus plug. Pts. FiO2 was increased to 100% during this time but able to titrate back down to 40% by 0600. Pts. Fentanyl was also maxed out @ 100 due to her being severely agitated during this time, was able to start titrate back down. Beside acute event pt. did well overnight, responsive and follows commands. Pt. averaged 150-35cc of urine output via [place] Catheter. Pt. did not have a BM overnight. Pt. turned and repositioned Q2H, heels off loaded, head padded with waffle cushion, no coverage needed for blood sugar checks. All information has been endorsed to day shift nurse- MIRELLA VALENTIN
[2018-09-07] MEDS: LEVOTHYROXINE 100 MCG VIAL IV SCH (08:10)
[2018-09-07] MEDS: FUROSEMIDE 20 MG INJ IV SCH (08:23)
[2018-09-07] MEDS: DOCUSATE SODIUM 10 MG/ML (10ML CUP) GTB SCH ×2 (08:23→21:07)
[2018-09-07] MEDS: ENOXAPARIN 80 MG/0.8 ML SYG SC SCH (08:24)
--- NOTE | 2018-09-07 09:50 | CONS ---
Date/Time of Note Date/Time of Note DATE: 09/07/18 TIME: 09:46 Assessment/Plan Assessment/Plan Assessment/Plan Ventilator setting; patient is currently on CPAP with pressure support of 10, PEEP of 8, 30% FiO2. Chest x-ray showing continued and significant improvement in bilateral pneumonia. Fentanyl 75 mics per hour, patient is off Versed. Assessment and recommendations; 1. Patient admitted for bilateral pneumonia leading to respiratory failure requiring intubation. There has been significant improvement in chest x-ray as well as oxygenation. 2. Shock liver with interval improvement. 3. Mild anemia and thrombocytopenia. 4. Possibly chronic type II respiratory failure. 5. Multiple decubitus ulcers. Possibly source of infection. 6. History of hypothyroidism. 7. Mild pulmonary edema. Discontinue further fentanyl dosing. Maintain CPAP mode as tolerated. Patient to be assessed for possible extubation in 2 hours. Meanwhile continue current supportive care. Continue to hold feeding in anticipation for possible extubation. If the patient cannot be extubated today patient is clinically stable to be transferred to [facility] for further care. 35 minutes of critical care time was spent evaluating the patient. Result Diagram: 09/07/18 0400 09/07/18 0400 Results 24hrs Laboratory Tests Test 09/06/18 12:21 09/06/18 16:44 09/06/18 20:39 09/07/18 01:13 Bedside Glucose 134 100 114 103 Test 09/07/18 04:00 09/07/18 05:00 09/07/18 05:26 09/07/18 08:28 White Blood Count 6.5 # Red Blood Count 3.41 L Hemoglobin 10.9 L Hematocrit 34.5 L Mean Corpuscular 101.2 H Volume Mean Corpuscular 32.0 Hemoglobin Mean Corpuscular 31.6 L Hemoglobin Concent Red Cell 14.8 H Distribution Width Platelet Count 171 # Mean Platelet 10.9 H Volume Immature 3.700 H Granulocytes % Neutrophils % 72.9 Lymphocytes % 13.5 L Monocytes % 8.3 Eosinophils % 1.1 Basophils % 0.5 Nucleated Red 0.0 Blood Cells % Immature 0.240 H Granulocytes # Neutrophils # 4.8 Lymphocytes # 0.9 Monocytes # 0.5 Eosinophils # 0.1 Basophils # 0.0 Nucleated Red 0.0 Blood Cells # Sodium Level 141 Potassium Level 3.5 Chloride Level 103 Carbon Dioxide 35 H Level Anion Gap 3 L Blood Urea 11 Nitrogen Creatinine 0.46 Est Glomerular Filtrat Rate mL/min Glucose Level 121 Calcium Level 8.3 L Blood Gas Specimen Blood arterial Source Arterial Blood 09/07/2018 4:55:25 Date Drawn AM Arterial Blood pH 7.339 L (Temp corrected) Arterial Blood 63.6 H pCO2 (Temp correct) Arterial Blood pO2 167.5 H (Temp corrected) Arterial Blood 33.5 H HCO3 Arterial Blood 5.9 H Base Excess Arterial Blood 99.1 Oxygen Saturation Yordan Test N/A Arterial Blood Gas Right Radial Puncture Site Arterial 0.6 Blood Carboxyhemog lobin Arterial Blood 0.4 Methemoglobin Blood Gas A-a O2 481.9 H Differential Oxyhemoglobin 98.1 Percent Blood Gas 37.0 Temperature Blood Gas 14.0 Respiration Rate Blood Gas Actual 18 Respiration Rate Blood Gas Modality VENT - AC FiO2 100.0 Blood Gas Tidal 450.0 Volume Blood Gas Low PEEP 8.0 Setting Blood Gas Notified [facility] Whom Blood Gas Notified 09/07/2018 5:15:02 Time AM Bedside Glucose 113 105 Consultation Date/Type/Reason Admit Date/Time Aug 29, 2018 at 22:04 Initial Consult Date 08/30/18 Type of Consult Pulmonary/critical care Requesting Provider: MARYLIN SERVIN MD 24 HR Interval Summary Free Text/Dictation Patient's condition remains critical but stable. Patient has been switched over to CPAP mode for the last half an hour and exhibiting fair weaning parameters. Patient however still on fentanyl drip. General exam; elderly female, orally intubated, awake and responsive. Currently in no distress. Exam/Review of Systems Vital Signs Vitals Vital Signs Date Temp Pulse Resp B/P (MAP) Pulse Ox O2 O2 Flow FiO2 Time Delivery Rate 09/07/18 91 19 113/64 91 Mechanical 09:00 (80) Ventilator 09/07/18 98.6 08:00 09/07/18 40 05:33 Intake and Output 09/06/18 09/06/18 09/07/18 1515:00 23:00 07:00 IntakeIntake Total 975.4 ml 706.7 ml 623.30 ml OutputOutput Total 360 ml 600 ml 510 ml BalanceBalance 615.4 ml 106.7 ml 113.30 ml Exam HEENT exam; supple neck, no JVD. No lymphadenopathy. Midline trachea. No thyromegaly. Patient has fair dentition. Orally intubated. No neck masses. Chest exam; diminished but clear breath sounds. S1-S2 audible, no murmurs. Regular rhythm. Abdomen exam; soft, no organomegaly. Bowel sounds audible. Nontender. Extremity exam; no peripheral edema or clubbing. Back examination; dressing applied over sacrum. BRANDS EDITOR exam; patient awake and responsive and follows simple commands. Medications Medications Current Medications Albuterol (Ventolin Hfa) 4 puff Q2H RESP THERAPY PRN INH SHORTNESS OF BREATH Last administered on 09/01/18at 05:32; Admin Dose 4 PUFF; Start 08/29/18 at 22:00 Ipratropium [place] (Atrovent Hfa) 4 puff Q2H RESP THERAPY PRN INH SHORTNESS OF BREATH; Start 08/29/18 at 22:00 Acetaminophen (Tylenol Liquid) 650 mg Q6H PRN NGT PAIN LEVEL 1-3 OR FEVER; Start 08/29/18 at 22:00 Insulin Aspart (Novolog Insulin Pen) NOVOLOG *MILD* ALGORI... Q4 SC Last administered on 08/30/18at 08:13; Admin Dose 1 UNIT; Start 08/30/18 at 01:00 Levothyroxine Sodium (Synthroid Iv) 88 mcg DAILY@0700 IV Last administered on 09/07/18at 08:10; Admin Dose 88 MCG; Start 08/30/18 at 07:00 Miscellaneous Information 1 ea NOTE XX ; Start 08/29/18 at 23:30 Glucose (Glutose) 15 gm Q15M PRN PO DECREASED GLUCOSE; Start 08/29/18 at 23:30 Glucose (Glutose) 22.5 gm Q15M PRN PO DECREASED GLUCOSE; Start 08/29/18 at 23:30 Dextrose (D50w Syringe) 25 ml Q15M PRN IV DECREASED GLUCOSE; Start 08/29/18 at 23:30 Dextrose (D50w Syringe) 50 ml Q15M PRN IV DECREASED GLUCOSE; Start 08/29/18 at 23:30 Glucagon (Glucagen) 1 mg Q15M PRN IM DECREASED GLUCOSE; Start 08/29/18 at 23:30 Glucose (Glutose) 15 gm Q15M PRN BUCCAL DECREASED GLUCOSE; Start 08/29/18 at 23:30 Fentanyl 100 ml @ 0.1 mls/hr TITRATE IV Last administered on 09/04/18 16:53; Admin Dose 1 MLS/HR; Start 08/30/18 at 02:00 Aztreonam 2 gm/ Sodium Chloride 100 ml @ 100 mls/hr Q12H IVPB Last administered on 09/07/18 05:27; Admin Dose 100 MLS/HR; Start 08/30/18 at 05:00 Guaifenesin/ Dextromethorphan (Robitussin Dm Liquid Cup) 5 ml Q4H PRN PO cough; Start 08/30/18 at 13:00 Norepinephrine 250 ml @ 1.875 mls/ hr TITRATE IV Last administered on 09/01/18 00:57; Admin Dose 1.875 MLS/HR; Start 09/01/18 at 00:00 Phenylephrine HCl 250 ml @ 75 mls/hr TITRATE IV Last administered on 09/06/18 05:08; Admin Dose 9 MLS/HR; Start 09/01/18 at 01:30 Lansoprazole (Prevacid) 30 mg DAILY@06 GTB Last administered on 09/07/18 05:34; Admin Dose 30 MG; Start 09/03/18 at 06:00 Docusate Sodium (Colace Liquid Cup) 100 mg BID GTB Last administered on 09/07/18 08:23; Admin Dose 100 MG; Start 09/04/18 at 10:30 Enoxaparin Sodium (Lovenox) 65 mg Q12 SC Last administered on 09/07/18 08:24; Admin Dose 65 MG; Start 09/04/18 at 21:00 Furosemide (Lasix) 20 mg DAILY IV Last administered on 09/07/18 08:23; Admin Dose 20 MG; Start 09/06/18 at 11:00 SHARON BOSTON Sep 07, 2018 09:50
--- NOTE | 2018-09-07 10:33 | CONS ---
Date/Time of Note Date/Time of Note DATE: 09/07/18 TIME: 10:30 Assessment/Plan Assessment/Plan Hospital Course IMPRESSION 1. Hypotension/shock, improved off of pressors at this time.-Back on pressors. EF 55% by echo this admit. Neg trop x 3 2. Respiratory failure status post intubation. 3. Chronic obstructive pulmonary disease. 4. Lactic acidosis. 5. Hypothyroidism. 6. Increased liver function tests. 7. Hypotension-on yobani 8. SVT-overnight to 170-180 reguar-TSH suppressed by labs but nl Free t4 Recc: -ICU -wean vent as possible -s/p course abx and f/u cx data -consider gentle lasix diuresis to assure good volume status -Continue lovenox DVT prohylaxis -Pssible transfer to [place] Result Diagram: 09/07/18 0400 09/07/18 0400 Results 24hrs Laboratory Tests Test 09/06/18 12:21 09/06/18 16:44 09/06/18 20:39 09/07/18 01:13 Bedside Glucose 134 100 114 103 Test 09/07/18 04:00 09/07/18 05:00 09/07/18 05:26 09/07/18 08:28 White Blood 6.5 # Count Red Blood Count 3.41 L Hemoglobin 10.9 L Hematocrit 34.5 L Mean Corpuscular 101.2 H Volume Mean Corpuscular 32.0 Hemoglobin Mean Corpuscular 31.6 L Hemoglobin Mony nt Red Cell 14.8 H Distribution Width Platelet Count 171 # Mean Platelet 10.9 H Volume Immature 3.700 H Granulocytes % Neutrophils % 72.9 Lymphocytes % 13.5 L Monocytes % 8.3 Eosinophils % 1.1 Basophils % 0.5 Nucleated Red 0.0 Blood Cells % Immature 0.240 H Granulocytes # Neutrophils # 4.8 Lymphocytes # 0.9 Monocytes # 0.5 Eosinophils # 0.1 Basophils # 0.0 Nucleated Red 0.0 Blood Cells # Sodium Level 141 Potassium Level 3.5 Chloride Level 103 Carbon Dioxide 35 H Level Anion Gap 3 L Blood Urea 11 Nitrogen Creatinine 0.46 Est Glomerular Filtrat Rate mL/min Glucose Level 121 Calcium Level 8.3 L Blood Gas Blood arterial Specimen Source Arterial Blood 09/07/2018 4:55:25 Date Drawn AM Arterial Blood 7.339 L pH (Temp corrected) Arterial Blood 63.6 H pCO2 (Temp correct) Arterial Blood 167.5 H pO2 (Temp corrected) Arterial Blood 33.5 H HCO3 Arterial Blood 5.9 H Base Excess Arterial Blood 99.1 Oxygen Saturatio n Yordan Test N/A Arterial Blood Right Radial Gas Puncture Site Arterial 0.6 Blood Carboxyhem oglobin Arterial Blood 0.4 Methemoglobin Blood Gas A-a O2 481.9 H Differential Oxyhemoglobin 98.1 Percent Blood Gas 37.0 Temperature Blood Gas 14.0 Respiration Rate Blood Gas Actual 18 Respiration Rate Blood Gas VENT - AC Modality FiO2 100.0 Blood Gas Tidal 450.0 Volume Blood Gas Low 8.0 PEEP Setting Blood Gas [facility] Notified Whom Blood Gas 09/07/2018 5:15:02 Notified Time AM Bedside Glucose 113 105 Test 09/07/18 10:00 Blood Gas Blood arterial Specimen Source Arterial Blood 09/07/2018 10:05:4 Date Drawn 3 AM Arterial Blood 7.457 H pH (Temp corrected) Arterial Blood 50.7 H pCO2 (Temp correct) Arterial Blood 63.6 L pO2 (Temp corrected) Arterial Blood 35.0 H HCO3 Arterial Blood 9.7 H Base Excess Arterial Blood 92.6 L Oxygen Saturatio n Yordan Test ACCEPTAB Arterial Blood Left Radial Gas Puncture Site Arterial 0.4 Blood Carboxyhem oglobin Arterial Blood 0.2 Methemoglobin Blood Gas A-a O2 90.7 H Differential Oxyhemoglobin 92.0 L Percent Blood Gas 37.0 Temperature Blood Gas Actual 20 Respiration Rate Blood Gas VENT - CPAP Modality FiO2 30.0 Blood Gas Low 8.0 PEEP Setting Blood Gas 10 Pressure Support Blood Gas TM Notified Whom Blood Gas 09/07/2018 10:14:4 Notified Time 2 AM Consultation Date/Type/Reason Admit Date/Time Aug 29, 2018 at 22:04 Initial Consult Date 08/30/18 Type of Consult cardiology Reason for Consultation hypotension Requesting Provider: MARYLIN SERVIN MD Exam/Review of Systems Vital Signs Vitals Vital Signs Date Temp Pulse Resp B/P (MAP) Pulse Ox O2 O2 Flow FiO2 Time Delivery Rate 09/07/18 91 19 113/64 91 Mechanical 09:00 (80) Ventilator 09/07/18 98.6 08:00 09/07/18 30 08:00 Intake and Output 09/06/18 09/06/18 09/07/18 1515:00 23:00 07:00 IntakeIntake Total 975.4 ml 706.7 ml 623.30 ml OutputOutput Total 360 ml 600 ml 510 ml BalanceBalance 615.4 ml 106.7 ml 113.30 ml Exam Review of Systems: CONSTITUTIONAL: No fevers, chills. PULMONARY: No sob CARDIOVASCULAR: No chest pain/palpitations GASTROINTESTINAL: No nausea/vomiting. GENITOURINARY: No hematuria/dysuria. MUSCULOSKELETAL: No myagias/arthalgias. PSYCHIATRIC: The patient denies depression. NEUROLOGIC: No weakness Constitutional: other (intubated, sedated) Psych: no complaints Head: normocephalic Eyes: nl conjunctiva ENMT: mucosa pink and moist Neck: supple, jvd (9 cm water) Respiratory: diminished breath sounds (at5 bases/B) Cardiovascular: regular rate and rhythm Gastrointestinal: soft, non-tender Musculoskeletal: muscle tone (normal) Extremities: edema (none) Neurological: other (No focal deficits) Medications Medications Current Medications Albuterol (Ventolin Hfa) 4 puff Q2H RESP THERAPY PRN INH SHORTNESS OF BREATH Last administered on 09/01/18at 05:32; Admin Dose 4 PUFF; Start 08/29/18 at 22:00 Ipratropium [place] (Atrovent Hfa) 4 puff Q2H RESP THERAPY PRN INH SHORTNESS OF BREATH; Start 08/29/18 at 22:00 Acetaminophen (Tylenol Liquid) 650 mg Q6H PRN NGT PAIN LEVEL 1-3 OR FEVER; Start 08/29/18 at 22:00 Insulin Aspart (Novolog Insulin Pen) NOVOLOG *MILD* ALGORI... Q4 SC Last administered on 08/30/18at 08:13; Admin Dose 1 UNIT; Start 08/30/18 at 01:00 Levothyroxine Sodium (Synthroid Iv) 88 mcg DAILY@0700 IV Last administered on 09/07/18at 08:10; Admin Dose 88 MCG; Start 08/30/18 at 07:00 Miscellaneous Information 1 ea NOTE XX ; Start 08/29/18 at 23:30 Glucose (Glutose) 15 gm Q15M PRN PO DECREASED GLUCOSE; Start 08/29/18 at 23:30 Glucose (Glutose) 22.5 gm Q15M PRN PO DECREASED GLUCOSE; Start 08/29/18 at 23:30 Dextrose (D50w Syringe) 25 ml Q15M PRN IV DECREASED GLUCOSE; Start 08/29/18 at 23:30 Dextrose (D50w Syringe) 50 ml Q15M PRN IV DECREASED GLUCOSE; Start 08/29/18 at 23:30 Glucagon (Glucagen) 1 mg Q15M PRN IM DECREASED GLUCOSE; Start 08/29/18 at 23:30 Glucose (Glutose) 15 gm Q15M PRN BUCCAL DECREASED GLUCOSE; Start 08/29/18 at 23:30 Fentanyl 100 ml @ 0.1 mls/hr TITRATE IV Last administered on 09/04/18at 16:53; Admin Dose 1 MLS/HR; Start 08/30/18 at 02:00 Aztreonam 2 gm/ Sodium Chloride 100 ml @ 100 mls/hr Q12H IVPB Last administered on 09/07/18 05:27; Admin Dose 100 MLS/HR; Start 08/30/18 at 05:00 Guaifenesin/ Dextromethorphan (Robitussin Dm Liquid Cup) 5 ml Q4H PRN PO cough; Start 08/30/18 at 13:00 Norepinephrine 250 ml @ 1.875 mls/ hr TITRATE IV Last administered on 09/01/18at 00:57; Admin Dose 1.875 MLS/HR; Start 09/01/18 at 00:00 Phenylephrine HCl 250 ml @ 75 mls/hr TITRATE IV Last administered on 09/06/18at 05:08; Admin Dose 9 MLS/HR; Start 09/01/18 at 01:30 Lansoprazole (Prevacid) 30 mg DAILY@06 GTB Last administered on 09/07/18at 05:34; Admin Dose 30 MG; Start 09/03/18 at 06:00 Docusate Sodium (Colace Liquid Cup) 100 mg BID GTB Last administered on 09/07/18at 08:23; Admin Dose 100 MG; Start 09/04/18 at 10:30 Furosemide (Lasix) 20 mg DAILY IV Last administered on 09/07/18at 08:23; Admin Dose 20 MG; Start 09/06/18 at 11:00 Enoxaparin Sodium (Lovenox) 40 mg DAILY SC ; Start 09/08/18 at 09:00 DANIELA FERRERA Sep 07, 2018 10:33
[2018-09-07] MEDS: FENTAnyl (DRIP) 1000 mcg/100mL 100 ML IV SCH (11:00)
--- NOTE | 2018-09-07 11:04 | NUR ---
Case Management note: FI02 is at 30%, possible CPAP trial today Call to [facility] @ [phone] Patient is currently on Serge-synephrine and norepinephrine gtt Call to [facility] for possible transfer today.. Addendum: 09/07/18 at 1120 by AFSHAN ESTEVES CM Currently off the pressors, B/P remains stable
[2018-09-07] MEDS ORDERED: PROPOFOL 100 ML ONE (12:48)
[2018-09-07] MEDS: PROPOFOL 100 ML IV SCH (13:05)
--- NOTE | 2018-09-07 14:00 | NUR ---
Case Management Note: Spoke to [place] @ [phone] B/P currently at ; remains on propofol @ [address] Gamez following patient Per [place] need Discharge summary, transferring to [facility] ; D/c summary
--- NOTE | 2018-09-07 14:22 | DS ---
Date/Time of Note Date/Time of Note DATE: 09/07/18 TIME: 14:17 Discharge Summary Admission/Discharge Info Admit Date/Time Aug 29, 2018 at 22:04 Discharge Date/Time Discharge Diagnosis Acute respiratory failure Pneumonia Patient Condition: Stable Hospital Course This is a 78-year-old female with a past medical history of COPD hypothyroidism and hypertension who was brought in by EMS from [facility] for being unresponsive and increased work of breathing. The history was provided from the ED physician as well as from the son Karson who was at the bedside as the patient was unable to provide a history given her critical condition. According to the son, the patient was seen on [place] by him and she did appear weak at that time. Then he was notified today by the [facility]/assisted living facility that she had not eaten. Patient was alert he noticed having a gradual decline in mobility and appetite and was found to be virtually unresponsive and with increased work of breathing. When she arrived to the emergency department patient was unresponsive and was very tachypneic. She still remains a smoker. She is a [place] patient. The son does state that the last time she was admitted to the hospital she required Lasix as her legs were both swollen. Upon my examination of the patient at the bedside the patient was intubated and was n oted to be agitated while on the vent. As per the son the patient does state that the mother did not want to be on life support for prolonged period of time nor in a vegetative state, however at the current time they would like to do everything possible for her. The patient was emergently intubated in the emergency room for hypoxia and mechanical failure. She was started on broad-spectrum antibiotics including vancomycin and aztreonam. She required Levophed for blood pressure support. Chest x-ray was notable for right lower lobe infiltrate consistent with pneumonia. Labs were notable for an acute kidney injury with a creatinine of 1.1 quickly down trended to 0.4 at this time. Labs were also notable for AST and ALT in the 4000s which down trended to normal consistent with shock liver injury. We have perform daily sedation vacations with attempt to extubate but she has been unable to be weaned from the ventilator. At this time she is stable for transfer to [facility] Reported Medications Cholecalciferol (Vitamin D3) (Vitamin D-3) 2,000 Unit Tablet, 2000 UNIT PO DAILY, TAB 08/29/18 Tiotropium [place]* (Spiriva*) 18 Mcg Cap.w.dev, 1 CAP INHALATION DAILY, #30 CAP 08/29/18 Levothyroxine Sodium* (Levothyroxine Sodium*) 175 Mcg Tablet, 175 MCG PO BEFORE BREAKFAST, #30 TAB 08/29/18 Amlodipine Besylate* (Norvasc*) 5 Mg Tablet, 5 MG PO DAILY, TAB 08/29/18 [place]-3 Fatty Acids/Fish Oil (Fish Oil 1,000 mg Capsule) 1 Each Capsule, 1 EACH PO DAILY, CAP 08/29/18 Calcium Carbonate-Vit D3-Minerals (Calcium 600 + D + Minerals) 1 Each Tablet, 1 TAB PO DAILY, TAB 08/29/18 Omeprazole/Sodium Bicarbonate (OMEPRAZOLE-BICARB 20-1,100 CAP) 1 Each Capsule, 1 CAP PO DAILY, #30 CAP 08/29/18 Aspirin* (Aspirin* EC) 81 Mg Tablet.dr, 81 MG PO DAILY, TAB 08/29/18 Furosemide* (Furosemide*) 20 Mg Tablet, 20 MG PO DAILY, #60 TAB 1 TAB- NEEDED 08/29/18 Pantoprazole* (Pantoprazole*) 40 Mg Tablet.dr, 40 MG PO AC BREAKFAST, TAB 08/29/18 Primary Care Provider Not On Staff Doctor Pending Labs Laboratory Tests Test 09/06/18 16:44 09/06/18 20:39 09/07/18 01:13 09/07/18 04:00 Bedside 100 114 103 Glucose mg/dL (70-220) mg/dL (70-220) mg/dL (70-220) White Blood 6.5 Count 10^3/ul (4.8-1 0.8) Red Blood 3.41 Count 10^6/ul (4.20- 5.40) Hemoglobin 10.9 g/dl (12.0-16. 0) Hematocrit 34.5 % (37.0-47.0) Mean 101.2 Corpuscular fl (82.0-101.0 Volume ) Mean 32.0 Corpuscular pg (29.0-33.0) Hemoglobin Mean 31.6 Corpuscular g/dl (32.0-37. Hemoglobin Conc 0) ent Red Cell 14.8 Distribution % (11.5-14.5) Width Platelet Count 171 10^3/UL (140-4 15) Mean Platelet 10.9 Volume fl (7.4-10.4) Immature 3.700 Granulocytes % % (0.001-0.429 ) Neutrophils % 72.9 % (39.0-77.0) Lymphocytes % 13.5 % (15.0-51.0) Monocytes % 8.3 % (0.0-11.0) Eosinophils % 1.1 % (0.0-7.0) Basophils % 0.5 % (0.0-2.0) Nucleated Red 0.0 Blood Cells % /100WBC (0.0-0 .0) Immature 0.240 Granulocytes # 10^3/ul (0.0-0 .031) Neutrophils # 4.8 10^3/ul (1.6-7 .5) Lymphocytes # 0.9 10^3/ul (0.8-2 .9) Monocytes # 0.5 10^3/ul (0.3-0 .9) Eosinophils # 0.1 10^3/ul (0.0-0 .5) Basophils # 0.0 10^3/ul (0.0-0 .1) Nucleated Red 0.0 Blood Cells # 10^3/ul (0.0-0 .0) Sodium Level 141 mmol/L (135-14 4) Potassium 3.5 Level mmol/L (3.5-5. 1) Chloride Level 103 mmol/L (97-110 ) Carbon Dioxide 35 Level mmol/L (21-31) Anion Gap 3 (5-13) Blood Urea 11 Nitrogen mg/dl (7-20) Creatinine 0.46 mg/dl (0.44-1. 00) Est Glomerular mL/min (>60) Filtrat Rate mL/min Glucose Level 121 mg/dl (70-220) Calcium Level 8.3 mg/dl (8.4-10. 2) Test 09/07/18 05:00 09/07/18 05:26 09/07/18 08:28 09/07/18 10:00 Blood Gas Blood arterial Blood arterial Specimen Source Arterial Blood 09/07/2018 4:55:2 09/07/2018 10:05 Date Drawn 5 AM :43 AM Arterial Blood 7.339 (7.350-7. 7.457 (7.350-7 pH 450) .450) (Temp corrected ) Arterial Blood 63.6 50.7 pCO2 mmhg (35-45) mmhg (35-45) (Temp correct) Arterial Blood 167.5 63.6 pO2 mmHG (80-90.0) mmHG (80-90.0) (Temp corrected ) Arterial Blood 33.5 35.0 HCO3 mmol/L (22.0-26 mmol/L (22.0-2 .0) 6.0) Arterial Blood 5.9 9.7 Base Excess mmol/L (-3.0-3) mmol/L (-3.0-3 ) Arterial Blood 99.1 92.6 Oxygen Saturati mmHG (95.0-100. mmHG (95.0-100 on 0) .0) Yordan Test N/A ACCEPTAB Arterial Blood Right Radial Left Radial Gas Puncture Site Arterial 0.6 % (0.0-3.0) 0.4 Blood Carboxyhe % (0.0-3.0) moglobin Arterial Blood 0.4 % (0.0-1.5) 0.2 Methemoglobin % (0.0-1.5) Blood Gas A-a 481.9 90.7 O2 mmHg (7.0-24.0) mmHg (7.0-24.0 Differential ) Oxyhemoglobin 98.1 92.0 Percent % (93.0-99.0) % (93.0-99.0) Blood Gas 37.0 C 37.0 C Temperature Blood Gas 14.0 Respiration Rate Blood Gas 18 20 Actual Respiration Rat e Blood Gas VENT - AC VENT - CPAP Modality FiO2 100.0 % 30.0 % Blood Gas Tidal 450.0 mL Volume Blood Gas Low 8.0 cmH2O 8.0 cmH2O PEEP Setting Blood Gas S.H. TM Notified Whom Blood Gas 09/07/2018 5:15:0 09/07/2018 10:14 Notified Time 2 AM :42 AM Bedside 113 105 Glucose mg/dL (70-220) mg/dL (70-220) Blood Gas 10 Pressure Support Test 09/07/18 13:08 Bedside 103 Glucose mg/dL (70-220) WAYNE NUÑEZ MD Sep 07, 2018 14:21
[2018-09-07] MEDS: MIDAZOLAM (DRIP) 50 mg/50 mL 50 ML IV SCH (18:00)
--- NOTE | 2018-09-07 20:07 | NUR ---
pt is AOx3, states she wants to go to [place], she wants to pull tube out, Teaching and emotional support provided. Pt's son Wale was updated during the day regarding pt's status, plan of care and possible transfer to [facility]. Pt tolerated CPAP trial well. ABG results post CPAP trial were reported to Dr Diamond. No orders to extubate received.
[2018-09-08] VITALS (53 sets, daily range): BP systolic 72–154; BP diastolic 50–97; PULSE 51–118; RESP 14–24
[2018-09-08] MEDS: NORepinephrine 8MG/250 ML (PMX 250 ML IV SCH (00:01)
[2018-09-08] MEDS: PROPOFOL 100 ML IV SCH ×2 (00:43→13:00)
[2018-09-08] MEDS: INSULIN ASPART [NOVOLOG] 3 ML PEN SC SCH ×5 (00:43→18:00)
[2018-09-08] MEDS: AZTREONAM 2 GM in SOD CHLORIDE 0.9% 100 ML IVPB SCH ×2 (04:59→17:59)
[2018-09-08] MEDS: FENTAnyl (DRIP) 1000 mcg/100mL 100 ML IV SCH ×2 (05:46→19:25)
[2018-09-08] MEDS: LEVOTHYROXINE 100 MCG VIAL IV SCH (06:16)
[2018-09-08] MEDS: LANSOPRAZOLE 30 MG CAP GTB SCH (06:17)
--- NOTE | 2018-09-08 08:18 | NUR ---
EOSS Pt AOx3-4 when awake, Pt remains intubated/sedated but follows commands and nods yes/no to questions. Pt was SR to SB during the night with HR reaching as low as 49BPM, sedation was titrated down accordingly. BP remained variable with majority of shift having BP WNL, but pt became hypotensive requiring levophed to be restarted. Pt SpO2 remained high 80s to low 90s throughout the night, FiO2 was titrated when able but at roughly 0530 pt became more agitated and c/o SOB, FiO2 increased to 50% as pt also began to desaturate. Pt tolerating tube feeds, no BM during shift. Nj remains patent. Pt's son called during the night, updates given. Pt turned q2h, Bedside report given to dayshift RN.
[2018-09-08] MEDS: FUROSEMIDE 20 MG INJ IV SCH (08:30)
[2018-09-08] MEDS: DOCUSATE SODIUM 10 MG/ML (10ML CUP) GTB SCH (08:30)
--- NOTE | 2018-09-08 08:41 | CONS ---
Date/Time of Note Date/Time of Note DATE: 09/08/18 TIME: 08:38 Assessment/Plan Assessment/Plan Assessment/Plan 1. Hypotension/shock, improved off of pressors at this time.-Back on pressors. EF 55% by echo this admit. Neg trop x 3 - much better now - con't to wean. 2. Respiratory failure status post intubation- con't to wean, improved Fio2. 3. Chronic obstructive pulmonary disease - con't op wean - better. 4. Lactic acidosis - improved. 5. Hypothyroidism. 6. Increased liver function tests. 7. Hypotension-on yobani 8. SVT-overnight to 170-180 reguar-TSH suppressed by labs but nl Free t4 9. CHF - diast HF - improved - con't spot diuresis as needed. Result Diagram: 09/08/18 0449 09/08/18 0449 Results 24hrs Laboratory Tests Test 09/07/18 10:00 09/07/18 13:08 09/07/18 18:32 09/07/18 21:09 Blood Gas Specimen Blood arterial Source Arterial Blood 09/07/2018 10:05:43 Date Drawn AM Arterial Blood pH 7.457 H (Temp corrected) Arterial Blood 50.7 H pCO2 (Temp correct) Arterial Blood pO2 63.6 L (Temp corrected) Arterial Blood 35.0 H HCO3 Arterial Blood 9.7 H Base Excess Arterial Blood 92.6 L Oxygen Saturation Yrodan Test ACCEPTAB Arterial Blood Gas Left Radial Puncture Site Arterial 0.4 Blood Carboxyhemog lobin Arterial Blood 0.2 Methemoglobin Blood Gas A-a O2 90.7 H Differential Oxyhemoglobin 92.0 L Percent Blood Gas 37.0 Temperature Blood Gas Actual 20 Respiration Rate Blood Gas Modality VENT - CPAP FiO2 30.0 Blood Gas Low PEEP 8.0 Setting Blood Gas Pressure 10 Support Blood Gas Notified TM Whom Blood Gas Notified 09/07/2018 10:14:42 Time AM Bedside Glucose 103 92 85 Test 09/08/18 00:40 09/08/18 04:49 09/08/18 04:57 09/08/18 08:29 Bedside Glucose 102 96 115 White Blood Count 5.3 Red Blood Count 2.99 L Hemoglobin 9.5 L Hematocrit 30.3 L Mean Corpuscular 101.3 H Volume Mean Corpuscular 31.8 Hemoglobin Mean Corpuscular 31.4 L Hemoglobin Concent Red Cell 14.8 H Distribution Width Platelet Count 184 Mean Platelet 11.2 H Volume Immature 1.900 H Granulocytes % Neutrophils % 63.6 Lymphocytes % 22.7 Monocytes % 9.5 Eosinophils % 1.9 Basophils % 0.4 Nucleated Red 0.0 Blood Cells % Immature 0.100 H Granulocytes # Neutrophils # 3.4 Lymphocytes # 1.2 Monocytes # 0.5 Eosinophils # 0.1 Basophils # 0.0 Nucleated Red 0.0 Blood Cells # Sodium Level 143 Potassium Level 3.6 Chloride Level 99 Carbon Dioxide 38 H Level Anion Gap 6 Blood Urea 13 Nitrogen Creatinine 0.43 L Est Glomerular Filtrat Rate mL/min Glucose Level 108 Calcium Level 8.2 L Consultation Date/Type/Reason Admit Date/Time Aug 29, 2018 at 22:04 Initial Consult Date 08/30/18 Requesting Provider: MARYLIN SERVIN MD 24 HR Interval Summary Free Text/Dictation No acute events - pt mopre alert - dispo to [place] planned. ROS: No fever, no chills, no nausea, no vomiting, no diarrhea/constipation No recent weight changes No chest pain, no PND, no orthopnea - improved SOB No dizziness, blurred vision No thirst, no heat or cold intolerance Exam/Review of Systems Vital Signs Vitals Vital Signs Date Temp Pulse Resp B/P (MAP) Pulse Ox O2 O2 Flow FiO2 Time Delivery Rate 09/08/18 79 21 111/75 83 07:45 (87) 09/08/18 Mechanical 07:00 Ventilator 09/08/18 35 04:56 09/08/18 98.3 04:00 Intake and Output 09/07/18 09/07/18 09/08/18 1515:00 23:00 07:00 IntakeIntake Total 269.2 ml 640.5 ml 610.000 ml OutputOutput Total 1540 ml 605 ml 255 ml BalanceBalance -1270.8 ml 35.5 ml 355.000 ml Exam General: WN/WD/NAD, AOx follows commands. HEENT: Unicetric/atraumatic/EOMI - intubatetd NECK: JVD elevated, no thyromegaly Lymph: no lymphadenopathy HEART: regular with no S3, II/ systolic murmur at apex LUNGS: Coarse sounds ABD: soft, NT, ND, +BS : Intact Neuro: non focal SKIN: chronic changes EXT: trace edema Medications Medications Current Medications Albuterol (Ventolin Hfa) 4 puff Q2H RESP THERAPY PRN INH SHORTNESS OF BREATH Last administered on 09/01/18 05:32; Admin Dose 4 PUFF; Start 08/29/18 at 22:00 Ipratropium [place] (Atrovent Hfa) 4 puff Q2H RESP THERAPY PRN INH SHORTNESS OF BREATH; Start 08/29/18 at 22:00 Acetaminophen (Tylenol Liquid) 650 mg Q6H PRN NGT PAIN LEVEL 1-3 OR FEVER; Start 08/29/18 at 22:00 Insulin Aspart (Novolog Insulin Pen) NOVOLOG *MILD* ALGORI... Q4 SC Last administered on 08/30/18at 08:13; Admin Dose 1 UNIT; Start 08/30/18 at 01:00 Levothyroxine Sodium (Synthroid Iv) 88 mcg DAILY@0700 IV Last administered on 09/08/18 06:16; Admin Dose 88 MCG; Start 08/30/18 at 07:00 Miscellaneous Information 1 ea NOTE XX ; Start 08/29/18 at 23:30 Glucose (Glutose) 15 gm Q15M PRN PO DECREASED GLUCOSE; Start 08/29/18 at 23:30 Glucose (Glutose) 22.5 gm Q15M PRN PO DECREASED GLUCOSE; Start 08/29/18 at 23:30 Dextrose (D50w Syringe) 25 ml Q15M PRN IV DECREASED GLUCOSE; Start 08/29/18 at 23:30 Dextrose (D50w Syringe) 50 ml Q15M PRN IV DECREASED GLUCOSE; Start 08/29/18 at 23:30 Glucagon (Glucagen) 1 mg Q15M PRN IM DECREASED GLUCOSE; Start 08/29/18 at 23:30 Glucose (Glutose) 15 gm Q15M PRN BUCCAL DECREASED GLUCOSE; Start 08/29/18 at 23:30 Fentanyl 100 ml @ 0.1 mls/hr TITRATE IV Last administered on 09/08/18 05:46; Admin Dose 5 MLS/HR; Start 08/30/18 at 02:00 Aztreonam 2 gm/ Sodium Chloride 100 ml @ 100 mls/hr Q12H IVPB Last administered on 09/08/18 04:59; Admin Dose 100 MLS/HR; Start 08/30/18 at 05:00 Guaifenesin/ Dextromethorphan (Robitussin Dm Liquid Cup) 5 ml Q4H PRN PO cough; Start 08/30/18 at 13:00 Norepinephrine 250 ml @ 1.875 mls/ hr TITRATE IV Last administered on 09/08/18 00:01; Admin Dose 1.875 MLS/HR; Start 09/01/18 at 00:00 Phenylephrine HCl 250 ml @ 75 mls/hr TITRATE IV Last administered on 09/06/18 05:08; Admin Dose 9 MLS/HR; Start 09/01/18 at 01:30 Lansoprazole (Prevacid) 30 mg DAILY@06 GTB Last administered on 09/08/18 06:17; Admin Dose 30 MG; Start 09/03/18 at 06:00 Docusate Sodium (Colace Liquid Cup) 100 mg BID GTB Last administered on 09/08/18 08:30; Admin Dose 100 MG; Start 09/04/18 at 10:30 Furosemide (Lasix) 20 mg DAILY IV Last administered on 09/08/18 08:30; Admin Dose 20 MG; Start 09/06/18 at 11:00 Enoxaparin Sodium (Lovenox) 40 mg DAILY SC Last administered on 09/08/18 08:31; Admin Dose 40 MG; Start 09/08/18 at 09:00 Propofol 100 ml @ 1.734 mls/ hr Q12H IV Last administered on 09/07/18 13:05; Admin Dose 1.734 MLS/HR; Start 09/07/18 at 13:00 Midazolam HCl 50 ml @ 1 mls/hr TITRATE IV Last administered on 09/07/18 18:00; Admin Dose 1 MLS/HR; Start 09/07/18 at 16:30 JAMES GARCIA MD Sep 08, 2018 08:41
[2018-09-08] MEDS ORDERED: ENOXAPARIN 40 MG/0.4 ML SYG SC SCH (09:00)
--- NOTE | 2018-09-08 09:41 | CONS ---
Date/Time of Note Date/Time of Note DATE: 09/08/18 TIME: 09:37 Assessment/Plan Assessment/Plan Assessment/Plan Ventilator setting; AC of 14, tidal volume 450, PEEP of 5, 40% FiO2. Patient is currently on fentanyl 75 mics per hour. Assessment and recommendations; 1. Patient admitted with severe bilateral pneumonia leading to respiratory failure with significant radiological improvement. 2. Sacral decubitus ulcer. 3. Mild anemia and thrombocytopenia. 4. UTI. 5. History of hypothyroidism. 6. Mild pulmonary vascular congestion with interval improvement. 7. Shock liver with interval improvement as well. 8. Patient failed a CPAP trial yesterday. 9. Possibly chronic type II respiratory failure. Discontinue further fentanyl dosing. Once the patient is off sedation she will again be evaluated for possible weaning from invasive mechanical ventilation. Meanwhile continue current supportive care. 35 minutes of critical care time was spent evaluating the patient. Result Diagram: 09/08/18 0449 09/08/18 0449 Results 24hrs Laboratory Tests Test 09/07/18 10:00 09/07/18 13:08 09/07/18 18:32 09/07/18 21:09 Blood Gas Specimen Blood arterial Source Arterial Blood 09/07/2018 10:05:43 Date Drawn AM Arterial Blood pH 7.457 H (Temp corrected) Arterial Blood 50.7 H pCO2 (Temp correct) Arterial Blood pO2 63.6 L (Temp corrected) Arterial Blood 35.0 H HCO3 Arterial Blood 9.7 H Base Excess Arterial Blood 92.6 L Oxygen Saturation Yordan Test ACCEPTAB Arterial Blood Gas Left Radial Puncture Site Arterial 0.4 Blood Carboxyhemog lobin Arterial Blood 0.2 Methemoglobin Blood Gas A-a O2 90.7 H Differential Oxyhemoglobin 92.0 L Percent Blood Gas 37.0 Temperature Blood Gas Actual 20 Respiration Rate Blood Gas Modality VENT - CPAP FiO2 30.0 Blood Gas Low PEEP 8.0 Setting Blood Gas Pressure 10 Support Blood Gas Notified TM Whom Blood Gas Notified 09/07/2018 10:14:42 Time AM Bedside Glucose 103 92 85 Test 09/08/18 00:40 09/08/18 04:49 09/08/18 04:57 09/08/18 08:29 Bedside Glucose 102 96 115 White Blood Count 5.3 Red Blood Count 2.99 L Hemoglobin 9.5 L Hematocrit 30.3 L Mean Corpuscular 101.3 H Volume Mean Corpuscular 31.8 Hemoglobin Mean Corpuscular 31.4 L Hemoglobin Concent Red Cell 14.8 H Distribution Width Platelet Count 184 Mean Platelet 11.2 H Volume Immature 1.900 H Granulocytes % Neutrophils % 63.6 Lymphocytes % 22.7 Monocytes % 9.5 Eosinophils % 1.9 Basophils % 0.4 Nucleated Red 0.0 Blood Cells % Immature 0.100 H Granulocytes # Neutrophils # 3.4 Lymphocytes # 1.2 Monocytes # 0.5 Eosinophils # 0.1 Basophils # 0.0 Nucleated Red 0.0 Blood Cells # Sodium Level 143 Potassium Level 3.6 Chloride Level 99 Carbon Dioxide 38 H Level Anion Gap 6 Blood Urea 13 Nitrogen Creatinine 0.43 L Est Glomerular Filtrat Rate mL/min Glucose Level 108 Calcium Level 8.2 L Consultation Date/Type/Reason Admit Date/Time Aug 29, 2018 at 22:04 Initial Consult Date 08/30/18 Type of Consult Pulmonary/critical care Requesting Provider: MARYLIN SERVIN MD 24 HR Interval Summary Free Text/Dictation Patient's condition is critical but stable. Patient despite being on sedation and is completely awake and alert. General exam; elderly female, orally intubated, awake and alert. Currently in no distress. Exam/Review of Systems Vital Signs Vitals Vital Signs Date Temp Pulse Resp B/P (MAP) Pulse Ox O2 O2 Flow FiO2 Time Delivery Rate 09/08/18 76 08:00 09/08/18 21 111/75 83 07:45 (87) 09/08/18 Mechanical 07:00 Ventilator 09/08/18 35 04:56 09/08/18 98.3 04:00 Intake and Output 09/07/18 09/07/18 09/08/18 1414:59 22:59 06:59 IntakeIntake Total 331.5 ml 628.2 ml 662.500 ml OutputOutput Total 1540 ml 580 ml 330 ml BalanceBalance -1208.5 ml 48.2 ml 332.500 ml Exam H HEENT exam; supple neck, no JVD. No lymphadenopathy. Midline trachea. No thyromegaly. Orally intubated. Patient has fair dentition. Pupils are small bilaterally. Chest exam; diminished but clear breath sounds. S1-S2 audible, no murmurs. Regular rhythm. Abdomen exam; soft, no organomegaly. Bowel sounds audible. Nontender. Nondistended. Back examination; sacral decubitus ulcer Extremity exam; no edema. CARBONATION TESTER exam; no focal deficit. Medications Medications Current Medications Albuterol (Ventolin Hfa) 4 puff Q2H RESP THERAPY PRN INH SHORTNESS OF BREATH Last administered on 09/01/18 05:32; Admin Dose 4 PUFF; Start 08/29/18 at 22:00 Ipratropium [place] (Atrovent Hfa) 4 puff Q2H RESP THERAPY PRN INH SHORTNESS OF BREATH; Start 08/29/18 at 22:00 Acetaminophen (Tylenol Liquid) 650 mg Q6H PRN NGT PAIN LEVEL 1-3 OR FEVER; Start 08/29/18 at 22:00 Insulin Aspart (Novolog Insulin Pen) NOVOLOG *MILD* ALGORI... Q4 SC Last administered on 08/30/18at 08:13; Admin Dose 1 UNIT; Start 08/30/18 at 01:00 Levothyroxine Sodium (Synthroid Iv) 88 mcg DAILY@0700 IV Last administered on 09/08/18 06:16; Admin Dose 88 MCG; Start 08/30/18 at 07:00 Miscellaneous Information 1 ea NOTE XX ; Start 08/29/18 at 23:30 Glucose (Glutose) 15 gm Q15M PRN PO DECREASED GLUCOSE; Start 08/29/18 at 23:30 Glucose (Glutose) 22.5 gm Q15M PRN PO DECREASED GLUCOSE; Start 08/29/18 at 23:30 Dextrose (D50w Syringe) 25 ml Q15M PRN IV DECREASED GLUCOSE; Start 08/29/18 at 23:30 Dextrose (D50w Syringe) 50 ml Q15M PRN IV DECREASED GLUCOSE; Start 08/29/18 at 23:30 Glucagon (Glucagen) 1 mg Q15M PRN IM DECREASED GLUCOSE; Start 08/29/18 at 23:30 Glucose (Glutose) 15 gm Q15M PRN BUCCAL DECREASED GLUCOSE; Start 08/29/18 at 23:30 Fentanyl 100 ml @ 0.1 mls/hr TITRATE IV Last administered on 09/08/18 05:46; Admin Dose 5 MLS/HR; Start 08/30/18 at 02:00 Aztreonam 2 gm/ Sodium Chloride 100 ml @ 100 mls/hr Q12H IVPB Last administered on 09/08/18 04:59; Admin Dose 100 MLS/HR; Start 08/30/18 at 05:00 Guaifenesin/ Dextromethorphan (Robitussin Dm Liquid Cup) 5 ml Q4H PRN PO cough; Start 08/30/18 at 13:00 Norepinephrine 250 ml @ 1.875 mls/ hr TITRATE IV Last administered on 09/08/18 00:01; Admin Dose 1.875 MLS/HR; Start 09/01/18 at 00:00 Phenylephrine HCl 250 ml @ 75 mls/hr TITRATE IV Last administered on 09/06/18 05:08; Admin Dose 9 MLS/HR; Start 09/01/18 at 01:30 Lansoprazole (Prevacid) 30 mg DAILY@06 GTB Last administered on 09/08/18 06:17; Admin Dose 30 MG; Start 09/03/18 at 06:00 Docusate Sodium (Colace Liquid Cup) 100 mg BID GTB Last administered on 09/08/18 08:30; Admin Dose 100 MG; Start 09/04/18 at 10:30 Furosemide (Lasix) 20 mg DAILY IV Last administered on 09/08/18 08:30; Admin Dose 20 MG; Start 09/06/18 at 11:00 Enoxaparin Sodium (Lovenox) 40 mg DAILY SC Last administered on 09/08/18 08:31; Admin Dose 40 MG; Start 09/08/18 at 09:00 Propofol 100 ml @ 1.734 mls/ hr Q12H IV Last administered on 09/07/18 13:05; Admin Dose 1.734 MLS/HR; Start 09/07/18 at 13:00 Midazolam HCl 50 ml @ 1 mls/hr TITRATE IV Last administered on 09/07/18 18:00; Admin Dose 1 MLS/HR; Start 09/07/18 at 16:30 SHARON BOSTON Sep 08, 2018 09:41
--- NOTE | 2018-09-08 10:29 | NUR ---
[facility] COMMUNICATION SPOKE WITH ANNA TRANSFER STATION ATTENDANT. PROVIDED HER WITH PATIENT'S CURRENT STATUS AND UPDATED LABS AND VITALS. TRANSFER STATION ATTENDANT WILL LOOK FOR A BED AT [place]. Addendum: 09/08/18 at 1127 by IGNACIO SALDAÑA RN [id number] SPOKE WITH ANNA TRANSFER STATION ATTENDANT. CLARIFIED THAT PATIENT IS NOT ON LEVOPHED. UPDATED HER ON PATIENT'S CURRENT STATUS. PER TRANSFER STATION ATTENDANT, [place] TO EVALUATE PRIOR TO TRANSFER. Addendum: 09/08/18 at 1128 by IGNACIO SALDAÑA RN 1124 SPOKE WITH SILVERIO LARSEN TRANSFER STATION ATTENDANT AND MADE AWARE OF PLAN. Addendum: 09/08/18 at 1153 by IGNACIO SALDAÑA RN SPOKE WITH BENNY ([phone]) FROM [facility]. PATIENT WILL GO TO [facility] ICU 1123. CALL REPORT TO [phone]. DOCTOR ACCEPTING IS Sergio SUMNER. ETA PENDING; BENNY WILL CALL BACK WITH THAT INFORMATION. Addendum: 09/08/18 at 1243 by IGNACIO SALDAÑA RN 1235 SPOKE WITH MIRELLA MOSQUEDA AND PROVIDED REPORT. ETA APPROXIMATELY [phone]. Addendum: 09/08/18 at 1244 by IGNACIO SALDAÑA RN CHECKLIST COMPLETED, DOCUMENTS PRINTED, AND CD ENCLOSED IN PACKET. Addendum: 09/08/18 at 1449 by IGNACIO SALDAÑA RN 1440 SPOKE WITH ANNA, TRANSFER STATION ATTENDANT, AND PROVIDED UPDATED VITAL SIGNS AND PATIENT'S CURRENT DRIPS AND STATUS. SHE WILL CONTACT DOCTOR. Addendum: 09/08/18 at 1617 by IGNACIO SALDAÑA RN CALLED [facility] FOR AN UPDATE -- CASE MANAGEMENT AWAITING ETA FROM DOCTOR AT THIS TIME. Addendum: 09/08/18 at 1849 by IGNACIO SALDAÑA RN CALLED [facility] FOR AN UPDATE -- DOCTOR LEFT [place] [address], AND IS ON THEIR WAY TO [facility]. PATIENT WILL BE EVALUATED FOR TRANSFER UPON DOCTOR'S ARRIVAL.
--- NOTE | 2018-09-08 10:56 | NUR ---
CPAP NOT ATTEMPTED DR. BOSTON NOTIFIED FOR ABG RESULTS, AND PATIENT'S STATUS (TACHYCARDIC, AGITATED). THIS RN ASKED WHETHER TO PROCEED WITH CPAP TRIAL. PER DR. BOSTON, NO CPAP TRIAL.
--- NOTE | 2018-09-08 11:56 | NUR ---
CM NOTES: DC WAS HELD LAST NIGHT DUE TO CLINICAL. NOW, THIS CM FAXED ALL CLINICAL UPDATE NOTES TO [facility] AND PT WILL BE TRANSFERRED TO [facility] WITH [facility]. INFORMED DR NUÑEZ TO UPDATE ORDERS AND UPDATE TRANSFER SUMMARY. PT'S BEDSIDE NURSE IGNACIO WILL INFORM PT'S SON CARMEN WITH THE UPDATE. PT WILL BE TRANSFERRED TO [facility] ICU VIA [facility]. ALL TRANSFER ARRANGEMENTS ARE DONE BY [facility]. SUZIE CARRIZALES LEAD CM [phone]
--- NOTE | 2018-09-08 12:23 | NUR ---
FAMILY COMMUNICATION CARMEN (PATIENT'S SON) AT BEDSIDE. INFORMED THIS RN THAT PATIENT HAS TOP LEFT TEMPORARY BRIDGE IN MOUTH, AND THAT EVENTUAL EXTUBATION MUST BE DONE WITH CARE. WILL ENDORSE THIS INFORMATION TO [facility] RN.
--- NOTE | 2018-09-08 16:48 | NUR ---
RESTRAINTS PATIENT ATTEMPTED TO SELF-EXTUBATE. PATIENT PLACED ON SOFT LIMB RESTRAINTS ON BILATERAL UPPER EXTREMITIES. PATIENT'S SON, CARMEN, CALLED AND MADE AWARE OF SITUATION. WILL CONTINUE TO ASSESS PER PROTOCOL.
[2018-09-08] MEDS: MIDAZOLAM (DRIP) 50 mg/50 mL 50 ML IV SCH (18:55)
--- NOTE | 2018-09-08 18:58 | NUR ---
END OF SHIFT SUMMARY Patient on Versed and Fentanyl drips; however, she has periods of alertness and can follow commands. Patient becomes agitated at times, and has attempted self-extubation. Restraints placed and assessed per protocol. Patient afebrile. SR/ST. Tolerating current mechanical ventilator settings and tube feedings with residuals charted. No bowel movement. Urine output as charted. Skin/wound care provided. Patient turned/repositioned Q2H per protocol. Comfort and safety measures/ fall precautions in place. Plan for transfer to [facility]; awaiting doctor and transport team's arrival. Son visited. Patient and son updated on patient's status, and plan of care. All of patient's needs met. Will continue to monitor, and endorse care to night warehouse selector RN.
--- NOTE | 2018-09-08 19:43 | NUR ---
TRANSFER MICKEY DE LA PAZ RN AND DR. CASTANEDA, CARE TEAM, ARRIVED TO UNIT. REPORT PROVIDED. DR. CASTANEDA AND RN EVALUATED PATIENT FOR TRANSFER. DR. CASTANEDA APPROVED TRANSFER. ENDORSED CARE TO CARE TEAM. Addendum: 09/08/18 at 1958 by IGNACIO SALDAÑA RN [id number] PATIENT SUCCESSFULLY TRANSFERRED OFF UNIT BY [facility] AND DR CASTANEDA. CARMEN, PATIENT'S SON, CALLED BY THIS RN AND UPDATED ON TRANSFER.
== END 2018-09-08 19:55 | disposition short-term general hospital (02) | DRG 870 ==
LOC: E/R 19:06 → ICU 22:04
PROVIDERS: ADMIT Family Medicine; ATTEND Internal Medicine
PROC: 5A1955Z Respiratory Ventilation, Greater than 96 Consecutive Hours (ICD-10-PCS; principal; 2018-08-29)
PROC: 0BH17EZ Insertion of Endotracheal Airway into Trachea, Via Natural or Artificial Opening (ICD-10-PCS; 2018-08-29)
PROC: 05HM33Z Insertion of Infusion Device into Right Internal Jugular Vein, Percutaneous Approach (ICD-10-PCS; 2018-08-29)
DX: A41.9 Sepsis, unspecified organism (principal); R65.21 Severe sepsis with septic shock; J18.9 Pneumonia, unspecified organism; J96.22 Acute and chronic respiratory failure with hypercapnia; J96.21 Acute and chronic respiratory failure with hypoxia; K72.00 Acute and subacute hepatic failure without coma; I50.31 Acute diastolic (congestive) heart failure; E87.2 Acidosis; N17.9 Acute kidney failure, unspecified; E87.3 Alkalosis; I47.1 Supraventricular tachycardia; D64.9 Anemia, unspecified; D69.6 Thrombocytopenia, unspecified; E87.5 Hyperkalemia; E86.9 Volume depletion, unspecified; E03.9 Hypothyroidism, unspecified; F17.200 Nicotine dependence, unspecified, uncomplicated; I11.0 Hypertensive heart disease with heart failure; J44.9 Chronic obstructive pulmonary disease, unspecified; L89.159 Pressure ulcer of sacral region, unspecified stage; M81.0 Age-related osteoporosis without current pathological fracture; Z79.82 Long term (current) use of aspirin
CPT/HCPCS: 31500; 36415; 36600; 70450; 71045; 71250; 71275; 74177; 76604; 76705; 80048; 80053; 80202; 81001; 82607; 82746; 82803; 82962; 83605; 83735; 83880; 84100; 84439; 84443; 84484; 85025; 85610; 85730; 86704; 86706; 86708; 86709; 86803; 87040; 87081; 87086; 87340; 87400; 93005; 93306; 93971; 94002; 94003; 94640; 94644; 94770; 96365; 96366; 96368; C9113; J0610; J1650; J1815; J1940; J1956; J2060; J2250; J2370; J2930; J3010; J3370; J3475; J3480; J7030; J7040; J7070; P9047; Q9967